=== PATIENT | female | born 1960 | race Caucasian/White ===

== ENCOUNTER 2023-05-14 11:59 | Outpatient (OUT) | payer OTHER, SELFPAY ==
[2023-05-15 06:11] LABS: Mumps Abs, IgG 57.2 AU/mL (Immune >10.9); Rubella Antibodies, IgG <0.90 index (Immune >0.99)
== END 2023-05-14 12:00 | disposition home or self-care (01) ==
LOC: LAB 12:03
DX: Z78.9 Other specified health status (principal)
CPT/HCPCS: 36415; 86735; 86762; 86765

== ENCOUNTER 2024-06-30 10:57 | Emergency (ER) | payer OTHER, SELFPAY ==
[2024-06-30] VITALS (70 sets, daily range): BP systolic 86–128; BP diastolic 56–80; PULSE 76–98; TEMP 36.9–37; O2SAT 92–100; BMI 32.3
--- OUTSIDE RECORDS SUMMARY | 2024-06-30 11:04 | XMS_ITS | CCD ---
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 Name Role Phone HUSSAIN, DR WINN Admitting Unavailable MISC, DR JAQUEZ Primary Care Unavailable HUSSAIN, DR WINN Attending Unavailable HUSSAIN, DR WINN Consulting Unavailable ALLSOP, DR NAIK Consulting Unavailable HUSSAIN, DR WINN Admitting Unavailable MISC, DR JAQUEZ Primary Care Unavailable HUSSAIN, DR WINN Attending Unavailable HUSSAIN, DR WINN Consulting Unavailable ALLSOP, DR NAIK Consulting Unavailable HUSSAIN, DR WINN Admitting Unavailable HUSSAIN, DR WINN Attending Unavailable DEPUTY, DR YOSELIN Pereira Consulting Unavailable MISC, DR JAQUEZ Primary Care Unavailable HUSSAIN, DR WINN Consulting Unavailable ALLSOP, DR NAIK Consulting Unavailable HUSSAIN, DR WINN Admitting Unavailable MISC, DR JAQUEZ Primary Care Unavailable HUSSAIN, DR WINN Attending Unavailable LORI WOOD Primary Care Physician [phone] LOIR WOOD Admitting Unavailable LORI WOOD Attending Unavailable LORI WOOD Referring Unavailable Serafin James Attending Unavailable Haider Mcgee Attending Unavaila LORI Bianchi Referring Unavailable Haider Mcgee Attending Unavaila shawnee NONE, XXXX Referring Unavailable Haider Mcgee Admitting Unavaila Haider Granger Attending Unavaila Haider Granger Referring Unavaila Haider Granger Consulting MD Haider Fierro Consulting Unava ilHaider Olivas Consulting Unavaila Lillian Chow Primary Care Physician [phone] Lori Wood NP Unavailable Farideh Shi MD Primary Care Provider LORI WOOD Admitting Unavailable Haider Mcgee Attending Ledya Haider Granger Referring Unavaila Serafin Castillo Attending Unavailable NONE, XXXX Referring Unavailable Haider Mcgee Attending Unavaila LORI Bianchi Referring Unavailable Haider Mcgee Attending Unavaila shawnee NONE, XXXX Referring Unavailable MABEL Torres Admitting Unavailable MABEL Torres Attending Unavailable Haider Mcgee Consulting UnavailHaider Robbins Attending Unavaila Haider Granger Referring Unavaila Haider Granger Admitting UnavailMD Haider Robbins Consulting Unava ilHaider Olivas Consulting Unavaila LORI Bianchi Attending Unavailable LORI WOOD Referring Unavailable LORI WOOD Admitting Unavailable LORI WOOD Attending Unavailable LORI WOOD Attending Unavailable LORI WOOD Attending Unavailable LORI WOOD Attending Unavailable LORI WOOD Attending Unavailable LORI WOOD Attending Unavailable LORI WOOD Attending Unavailable ROLY MORFIN Attending Unavailable LORI WOOD Attending Unavailable LORI WOOD Attending Unavailable LORI WOOD Attending Unavailable LORI WOOD Attending Unavailable LORI WOOD Attending Unavailable LORI WOOD Attending Unavailable Allergies Allergy Classification Reported Allergen(s) Allergy Type Date of Onset Reaction(s) Facility (2 sources) Adhesive bandage; Translations: [Adhesive Bandage] Propensity to adverse reactions (disorder) [facility] Repository Medications Current Medications Medication Drug Class(es) Dates Sig (Normalized) Sig (Original) acetaminophen 500 mg oral tablet (20 sources) Start: 03-21-2020 take 2 tablets by mouth every six hours as needed for pain Tylenol Extra Strength 500 mg oral tablet 1,000 mg = 2 tab(s), Oral, q6hr, PRN as needed for pain, Refills(s) 0 Start Date: 03/21/20 Status: Ordered Start: 05-12-2018 Tylenol 8 HR A rthritis Pain 650 mg oral tablet, extended release 1,300 mg = 2 tab(s), Oral, q8hr, PRN Pain Start Date: 05/12/18 Status: Ordered Acetaminophen (T YLENOL ARTHRITIS PAIN PO) Tylenol Arthritis Pain Active acetaminophen 325 mg / HYDROcodone bitartrate 5 mg oral tablet (1 source) Opioid Agonist Start: 06-08-2023 End: 06-11-2023 Mcclellan 325 mg-5 mg oral tablet 1 tab(s), Oral, q6hr for pain for 3 day(s), 10 tab(s), Refill(s) 0, [facility]/pharmacy #[id number], 168, cm, 06/08/23 10:10:00 EST, Height/Length Dosing, 102.3, kg, 06/08/23 10:10:00 EST, Weight Dosing Start Date: 06/08/23 Stop Date: 06/11/23 Status: Ordered amoxicillin 875 mg / clavulanate 125 mg oral tablet (5 sources) Penicillin-class Antibacterial Start: 05-01-2024 End: 05-11-2024 take 1 tablet by mouth in the morning amoxicillin-clavul anate (Augmentin) 875-125 MG tablet Indications: Leukocytes in urine , Urinary tract infection without hematuria, site unspecified , Right flank pain Take 1 tablet (875 mg) by mouth in the morning and 1 tablet (875 mg) before bedtime. Do all this for 10 days. 20 tablet 05/01/2024 05/11/2024 Active Start: 02-18-2024 End: 03-03-2024 take 1 tablet by mouth in the morning amoxicillin-clavulanate (Augmentin) 875-125 MG tablet Indications: Urinary tract infection without hematuria, site unspecified Take 1 tablet (875 mg) by mouth in the morning and 1 tablet (875 mg) before bedtime. Do all this for 10 days. 20 tablet 02/18/2024 03/03/2024 Discontinued Blood Glucose Monitoring Suppl ([employer] Autocode Blood Glucose) w/Device kit (18 sources) Start: 01-23-2023 Blood Glucose Monitoring Suppl ([employer] Autocode Blood Glucose) w/Device kit Use as directed to test blood sugar every day 01/23/2023 Active buPROPion (9 sources) Aminoketone Start: 05-09-2023 buPROPion 150 mg ER Tab Refills(s) 0 Start Date: 05/09/23 Status: Ordered Start: 06-10-2017 take 1 tablet by marito th twice daily buPROPion 150 mg ER Tab 150 mg = 1 tab(s), Oral, BID, Refills(s) 0, Depression Start Date: 06/10/17 Status: Ordered citalopram 20 mg oral tablet (9 sources) Serotonin Reuptake Inhibitor Start: 06-10-2017 citalopram 20 mg Tab Refills(s) 0 Start Date: 05/09/23 Status: Ordered CoQ10 (2 sources) Start: 03-09-2020 take 300 mg by mouth once daily CoQ10 300 mg, Oral, Daily, Refills(s) 0, Prophylaxis Start Date: 03/09/20 Status: Ordered D-MANNOSE PO (13 sources) D-MANNOSE PO Abel e by mouth Active diazePAM 5 mg oral tablet (2 sources) Benzodiazepine Start: 05-13-2018 take 1 tablet by mouth three times daily Valium 5 mg Tab 5 mg = 1 tab(s), Oral, TID, # 10 tab(s), Refills(s) 0 Start Date: 05/13/18 Status: Ordered esomeprazole 20 mg delayed release oral capsule (20 sources) Proton Pump Inhibitor Start: 05-14-2024 End: 06-10-2025 take 1 capsule by mouth before mealtime esomeprazole (NexIUM) [address] capsule Indications: Gastroesophageal reflux disease without esophagitis Take 1 capsule (20 mg) by mouth in the morning. Take before meals. Do not open capsule.. 90 capsule 3 06/10/2024 06/10/2025 Active Start: 01-08-2024 End: 03-03-2024 take 1 capsule by mouth before mealtime esomeprazole (NexIUM) [address] capsule Indications: Gastroesophageal reflux disease without esophagitis TAKE ONE CAPSULE BY MOUTH IN THE MORNING BEFORE MEALS. DO NOT OPEN CAPSULE. 90 capsule 03/03/2024 Active Start: 06-10-2017 take 1 capsule by [facility] once daily esomeprazole 40 mg Cap-EC 40 mg = 1 cap(s), Oral, Daily, Refills(s) 0, Control of stomach acid Start Date: 06/10/17 Status: Ordered Fish Oils (2 sources) Start: 03-09-2020 take 1000 mg by mouth once daily Fish Oil 1,000 mg, Oral, Daily, Refill(s) 0, Prophylaxis Start Date: 03/09/20 Status: Ordered fluconazole 150 mg oral tablet (4 sources) Azole Antifungal Start: 05-01-2024 End: 05-01-2024 take 1 tablet by mouth once fluconazole (Diflucan) 150 MG tablet Indications: Urinary tract infection without hematuria, site unspecified Take 1 tablet (150 mg) by mouth 1 (one) time for 1 dose 1 tablet 05/01/2024 05/01/2024 Active Start: 04-16-2024 End: 04-16-2024 take 1 tablet by mouth once fluconazole (Diflucan) 150 MG tablet Indications: Urinary tract infection without hematuria, site unspecified Take 1 tablet (150 mg) by mouth 1 (one) time for 1 dose 1 tablet 04/16/2024 04/16/2024 Active FLUoxetine 10 mg oral capsule (20 sources) Serotonin Reuptake Inhibitor Start: 04-23-2024 FLUoxetine 20 mg Cap 30 cap(s), 0 Refill(s), Refills(s) 0 Start Date: 04/23/24 Status: Ordered Start: 02-26-2024 End: 07-10-2024 take 1 capsule by mouth once daily FLUoxetine (PROzac) 10 MG capsule Indications: Anxiety , Recurrent major depressive disorder, in partial remission (HCC) (CMS/HCC) Take 1 capsule (10 mg) by mouth Daily 30 capsule 06/10/2024 07/10/2024 Active hydrocortisone 25 mg/ml rectal cream (3 sources) Corticosteroid Start: 02-13-2021 hydrocortisone 2.5% Rectal Crm w/Appl 1 cinda, Rectal, BID, 30 gram, Refill(s) 0, [facility]/pharmacy #[id number], 167.6, cm, 02/13/21 12:25:00 EDT, Height/Length Dosing, 104.1, kg, 02/13/21 12:25:00 EDT, Weight Dosing Start Date: 02/13/21 Status: Ordered hydrOXYzine hydrochloride 10 mg oral tablet (20 sources) Antihistamine Start: 04-23-2024 hydrOXYzine hy drochloride 10 mg Tab 180 EA, 0 Refill(s), TAKE 1 TO 2 TABLETS BY MOUTH 3 TIMES A DAY NEEDED, Refills(s) 0 Start Date: 04/23/24 Status: Ordered Start: 04-23-2024 hydrOXYzine hy drochloride 25 mg Tab 180 EA, 0 Refill(s), TAKE 1-2 TABLETS AT BEDTIME 30 DAYS, Refills(s) 0 Start Date: 04/23/24 Status: Ordered take 1 tablet by marito th every three hours hydrOXYzine HCl (Atarax) 10 MG tablet Take 10 mg by mouth every 3 (three) hours if needed for itching Active lamoTRIgine 25 mg oral tablet (17 sources) Mood Stabilizer, Anti-epileptic Agent Start: 06-10-2024 End: 07-10-2024 take 1 tablet by mouth once daily lamoTRIgine (LaMICtal) 25 MG tablet Indications: Bipolar Mood Disorder , Depressive Phase Bipolar Mood Disorder Take 1 tablet (25 mg) by mouth Daily 30 tablet 06/10/2024 07/10/2024 Active Start: 06-10-2017 Lamictal 150 m g Tab Refills(s) 0 Start Date: 05/09/23 Status: Ordered metFORMIN hydrochloride 1000 mg oral tablet (20 sources) Biguanide Start: 05-09-2023 End: 06-10-2025 take 1 tablet by mouth at mealtime metFORMIN (Glucophage) 1000 MG tablet Indications: Type 2 diabetes mellitus without complication, without long-term current use of insulin (CMS/HCC) Take 1 tablet (1,000 mg) by mouth in the morning. Take with meals. 90 tablet 02/13/2024 05/13/2024 Active Start: 03-09-2020 take 500 mg by mouth twice daily metformin 500 mg, Oral, BID, Refills(s) 0, Blood glucose Start Date: 03/09/20 Status: Ordered omeprazole 10 mg delayed release oral capsule (7 sources) Proton Pump Inhibitor Start: 05-09-2023 omeprazole 10 mg Cap-EC Refills(s) 0 Start Date: 05/09/23 Status: Ordered pravastatin sodium 40 mg oral tablet (7 sources) HMG-CoA Reductase Inhibitor Start: 05-09-2023 pravastatin 40 mg Tab Refills(s) 0 Start Date: 05/09/23 Status: Ordered predniSONE 50 mg oral tablet (1 source) Start: 06-08-2023 End: 06-13-2023 take 1 tablet by mouth once daily predniSONE 50 mg Tab 50 mg = 1 tab(s), Oral, Daily, X 5 day(s), # 5 tab(s), Refills(s) 0, Pharmacy: [facility]/pharmacy #[id number], 168, cm, 06/08/23 10:10:00 EST, Height/Length Dosing, 102.3, kg, 06/08/23 10:10:00 EST, Weight Dosing Start Date: 06/08/23 Stop Date: 06/13/23 Status: Ordered rosuvastatin calcium 20 mg oral tablet (2 sources) HMG-CoA Reductase Inhibitor Start: 06-10-2017 take 1 tablet by mouth once daily at bedtime rosuvastatin 20 mg Tab 20 mg = 1 tab(s), Oral, Once a day (at bedtime), Refills(s) 0, High cholesterol Start Date: 06/10/17 Status: Ordered sulfamethoxazole 800 mg / trimethoprim 160 mg oral tablet (2 sources) Dihydrofolate Reductase Inhibitor Antibacterial, Sulfonamide Antimicrobial Start: 04-16-2024 End: 04-19-2024 take 1 tablet by mouth once in the morning, then take 1 tablet by mouth once at bedtime sulfamethoxazole- trimethoprim (Bactrim DS) 800-160 MG per tablet Indications: Urinary tract infection without hematuria, site unspecified Take 1 tablet by mouth in the morning and 1 tablet before bedtime. Do all this for 3 days. 6 tablet 04/16/2024 04/19/2024 Active Tylenol 8 HR Arthritis Pain (7 sources) Start: 05-09-2023 Tylenol 8 HR Arthritis Pain Refills(s) 0 Start Date: 05/09/23 Status: Ordered Completed/Discontinued Medications Medication Drug Class(es) Dates Sig (Normalized) Sig (Original) cariprazine (7 sources) Atypical Antipsychotic End: 04-16-2024 Cariprazine HCl (VRAYLAR PO) Take by mouth 04/16/2024 Discontinued (Therapy completed) Cariprazine HCl (VRAYLAR PO) Take by mouth Active lurasidone hydrochloride 20 mg oral tablet (3 sources) Atypical Antipsychotic End: 03-03-2024 take 1 tablet by mouth at mealtime lurasidone (Latuda) 20 MG tablet Take 20 mg by mouth in the morning. Take with meals. 03/03/2024 Discontinued meloxicam 15 mg oral tablet (14 sources) Nonsteroidal Anti-inflammatory Drug Start: 04-14-2024 End: 07-13-2024 take 1 tablet by mouth once daily meloxicam (Mobic) 15 MG tablet Indications: Arthralgia, unspecified joint Take 1 tablet (15 mg) by mouth Daily 90 tablet 04/14/2024 04/16/2024 Discontinued (Therapy completed) Start: 02-21-2024 End: 03-03-2024 take 1 tablet by mouth once daily meloxicam (Mobic) 15 MG tablet Indications: Arthralgia, unspecified joint TAKE ONE TABLET BY MOUTH DAILY. 30 tablet 02/21/2024 03/03/2024 Discontinued Start: 05-09-2023 meloxicam 15 m g Tab Refills(s) 0 Start Date: 05/09/23 Status: Ordered OLANZapine 2.5 mg oral tablet (3 sources) Atypical Antipsychotic Start: 01-07-2024 End: 03-03-2024 take 1 tablet by mouth at bedtime OLANZapine (ZyPREXA) 2.5 MG tablet Take 2.5 mg by mouth at bedtime 01/07/2024 03/03/2024 Discontinued Vitamin D 50,000 intl units (1.25 mg) oral capsule (2 sources) Start: 05-12-2018 take 1 capsule by mouth every week Vitamin D 50,000 intl units (1.25 mg) oral capsule 50,000 International_Unit = 1 cap(s), Oral, qWeek, Mondays, Prophylaxis Start Date: 05/12/18 Status: Ordered Problems Active Problems Problem Classification Problem Date Documented Date Episodic/Chronic Abdominal pain (2 sources) Right flank pain; Translations: [Unspecified abdominal pain] 05-01-2024 Episodic Anxiety disorders (20 sources) Anxiety; Translations: [Anxiety disorder, unspecified] Onset: 01-31-2023 05-09-2023 Chronic Cardiac dysrhythmias (18 sources) Fluttering heart; Translations: [Other specified cardiac arrhythmias] Onset: 01-31-2023 01-31-2023 Chronic Diabetes mellitus without complication (20 sources) Type 2 diabetes mellitus; Translations: [Diabetes mellitus] Onset: 09-20-2015 05-09-2023 Chronic Disorders of lipid metabolism (20 sources) Hypercholesterolemia; Translations: [Hypertriglyceridemia] Onset: 01-31-2023 09-17-2019 Chronic Esophageal disorders (3 sources) Gastroesophageal reflux disease without esophagitis; Translations: [Gastro-esophageal reflux disease without esophagitis] 06-10-2024 Chronic Genitourinary symptoms and ill-defined conditions (14 sources) Dysuria; Translations: [Dysuria] 04-16-2024 Episodic Heart valve disorders (1 source) Heart murmur; Translations: [Cardiac murmur, unspecified] Onset: 04-23-2024 Episodic Menopausal disorders (20 sources) Menopausal syndrome; Translations: [Menopausal and female climacteric states] Onset: 01-31-2023 01-31-2023 Chronic Mood disorders (20 sources) Bipolar affective disorder, currently depressed, moderate; Translations: [Bipolar disorder, current episode depressed, moderate] Onset: 09-20-2015 01-31-2023 Chronic Nonspecific chest pain (2 sources) Chest pain; Translations: [Chest pain, unspecified] Onset: 06-08-2023 Episodic Nutritional deficiencies (20 sources) Vitamin D deficiency; Translations: [Vitamin D deficiency, unspecified] Onset: 01-31-2023 05-09-2023 Chronic Other connective tissue disease (18 sources) Polymyalgia; Translations: [Polymyalgia rheumatica] Onset: 01-31-2023 01-31-2023 Chronic Other connective tissue disease (1 source) Pain in upper limb; Translations: [Pain in arm, unspecified] Onset: 06-08-2023 Episodic Other female genital disorders (2 sources) Vaginal dryness; Translations: [Other specified noninflammatory disorders of vagina] 04-16-2024 Episodic Other female genital disorders (2 sources) Vaginal discharge; Translations: [Other specified noninflammatory disorders of vagina] 06-10-2024 Episodic Other inflammatory condition of skin (2 sources) Itching ; Translations: [Pruritus, unspecified] 06-10-2024 Episodic Other non-traumatic joint disorders (1 source) Joint pain; Translations: [Pain in unspecified joint] 04-14-2024 Episodic Other nutritional; endocrine; and metabolic disorders (20 sources) Morbid obesity; Translations: [Morbid (severe) obesity due to excess calories] Onset: 01-31-2023 05-09-2023 Chronic Other nutritional; endocrine; and metabolic disorders (18 sources) Obese class II; Translations: [Class 2 obesity] Onset: 01-31-2023 01-31-2023 Chronic Other screening for suspected conditions (not mental disorders or infectious disease) (14 sources) Encounter for screening mammogram for malignant neoplasm of breast; Translations: [Patient encounter status] Onset: 04-04-2022 Episodic Other skin disorders (2 sources) Night sweats; Translations: [Generalized hyperhidrosis] 05-01-2024 Episodic Residual codes; unclassified (2 sources) Statin declined; Translations: [Procedure and treatment not carried out because of patient's decision for unspecified reasons] 05-20-2024 Episodic Thyroid disorders (20 sources) Acquired hypothyroidism; Translations: [Hypothyroidism] Onset: 01-31-2023 05-09-2023 Chronic Urinary tract infections (6 sources) Urinary tract infectious disease; Translations: [Urinary tract infection, site not specified] 04-16-2024 Episodic Past or Other Problems Problem Classification Problem Date Documented Da te Episodic/Chronic Chronic obstructive pulmonary disease and bronchiectasis (20 sources) Bronchitis; Translations: [Bronchitis, not specified as acute or chronic] Onset: 09-20-2015 05-09-2023 Episodic Sprains and strains (18 sources) Strain of neck muscle; Translations: [Strain of muscle, fascia and tendon at neck level, initial encounter] Onset: 06-24-2017 04-02-2023 Episodic Unclassified (8 sources) Bipolar (qualifier value) 05-09-2023 Results Test Name Value Interpretation Reference Range Facility SURESWAB(R) ADAVANCED VAGINI TIS, TMAon 06-11-2024 C. glabrata RNA MARY+probe Ql (Vag fld) Not detected NOT DETECTED [facility] Comment on above: Zoila species C. albicans, C. tropicalis, C. parapsilosis, and/or C. dubliniensis can be detected, but not differentiated, in the Zoila spp. result. Zoila sp rRNA Probe Ql (Vag fld) Not detected NOT DETECTED [facility] Lactobacillus crispatus+gasseri+kasie enii + Gardnerella vaginalis + Atopobium vaginae rRNA MARY+probe Ql (Vag fld) Negative NEGATIVE [facility] T. vaginalis rRNA MARY+probe Ql (Unsp spec) Not detected NOT DETECTED [facility] FASTING:UNKNOWN FASTING: UNKNOWN [employer] Organization Information Site ID: QPT Name: [facility] Address: [address] [place] [address], [address] [place] [id number] Director: Guilherme Myers MD Formerly [facility], [facility] Urinalysis macro (dipstick) panel (U)on 06-10-2024 Bilirubin, UA Negative Negative - 4(70) +++ mg/dL [facility] Blood, UA Negative Negative - 50 [place]asper/mcL [facility] Clarity, UA Clear [facility] Color, UA Light Yellow [facility] Glucose, UA Negative Negative - 1999(110) ++++ mg/dL [facility] Ketones, UA Negative Negative - 160(16) ++++ mg/dL [facility] Leukocytes, UA Negative Negative - 500+++ Ashleigh/mcL [facility] Nitrite, UA Negative Negative - Positive [facility] pH, UA 6 5 - 9 [facility] Protein, UA Negative Negative - 1999(20) ++++ mg/dL [facility] Spec Grav, UA 1.015 1 - 1.03 [facility] Urobilinogen, UA 0.2 0.2 - 12 mg/dL [facility], [facility] Urinalysis macro (dipstick) panel (U)on 05-20-2024 Bilirubin, UA Negative Negative - 4(70) +++ mg/dL [facility] Blood, UA Negative Negative - 50 Jasper/mcL [facility] Glucose, UA Negative Negative - 1999(110) ++++ mg/dL [facility] Ketones, UA Negative Negative - 160(16) ++++ mg/dL [facility] Leukocytes, UA Positive Negative - 500+++ Ashleigh/mcL [facility] Nitrite, UA Negative Negative - Positive [facility] pH, UA 6 5 - 9 [facility] Protein, UA Negative Negative - 1999(20) ++++ mg/dL [facility] Spec Grav, UA 1.01 1 - 1.03 [facility] Urobilinogen, UA 1.0 0.2 - 12 mg/dL [facility] CULTURE, URINE, ROUTINEon CULTURE, URINE, ROUTINE SEE NOTE Normal [facility] Comment on above: Order Comment: SPLIT 05/01/2024 FROM [id number] Result Comment: CULTURE, URINE, ROUTINE Micro Number: [id number] Test Status: Final Specimen Source: Urine Specimen Quality: Adequate Result: No Growth Performed By: #### 3 95 #### [facility] [address], [address] [place] [address] Network Strategist: Guilherme Myers MD CBC (INCLUDES DIFF/PLT)on 10 -26-2024 Basophils (Bld) [#/Vol] 0.05 10*3/uL Normal 0-200 [facility] Comment on above: Performed By: #### 7 600, 809, 98712, 69710, 6399 #### [facility] [place] [address] Network Strategist: Guilherme Myers MD Basophils/100 WBC (Bld) 0.8 % Normal [facility] Comment on above: Performed By: #### 7 600, 809, [id number], , 6399 #### [facility] [place] [address] Network Strategist: Guilherme Myers MD Eosinophils (Bld) [#/Vol] 0.143 10*3/uL Normal 15-500 [facility] Comment on above: Performed By: #### 7 600, 809, [id number], , 6399 #### [facility] [place] [address] Network Strategist: Guilherme Myers MD Eosinophils/100 WBC (Bld) 2.3 % Normal [facility] Comment on above: Performed By: #### 7 600, 809, 08504, , 6399 #### [facility] [place] [address] Network Strategist: Guilherme Myers MD Erythrocyte distribution width (RBC) [Ratio] 13.0 % Normal 11.0-15.0 [facility] Comment on above: Performed By: #### 7 600, 809, 91448, , 6399 #### [facility] [place] [address] Network Strategist: Guilherme Myers MD Hematocrit (Bld) [Volume fraction] 38.8 % Normal 35.0-45.0 [facility] Comment on above: Performed By: #### 7 600, 809, 97625, 49965, 6399 #### [facility] [place] [address] Network Strategist: Guilherme Myers MD Hemoglobin (Bld) [Mass/Vol] 12.6 g/dL Normal 11.7-15.5 [facility] Comment on above: Performed By: #### 7 600, 809, 89727, 04068, 6399 #### [facility] [place] [address] Network Strategist: Guilherme Myers MD Lymphocytes (Bld) [#/Vol] 1.333 10*3/uL Normal 850-3900 [facility] Comment on above: Performed By: #### 7 600, 809, 04960, , 6399 #### [facility] [place] [address] Network Strategist: Guilherme Myers MD Lymphocytes/100 WBC (Bld) 21.5 % Normal [facility] Comment on above: Performed By: #### 7 600, 809, 24877, , 6399 #### [facility] [place] [address] Network Strategist: Guilherme Myers MD MCH (RBC) [Entitic mass] 27.7 pg Normal 27.0-33.0 [facility] Comment on above: Performed By: #### 7 600, 809, 09493, 03540, 6399 #### [facility] [place] [address] Network Strategist: Guilherme Myers MD MCHC (RBC) [Mass/Vol] 32.5 g/dL Normal 32.0-36.[address] [facility] [address] [facility] Comment on above: Result Comment: For adults, a slight decrease in the calculated MCHC value (in the range of 30 to 32 g/dL) is most likely not clinically significant; however, it should be interpreted with caution in correlation with other red cell parameters and the patient's clinical condition. Performed By: #### 7 600, 809, 35909, [id number], 6399 #### [facility] [place] [address] Network Strategist: Guilherme Myers MD MCV (RBC) [Entitic vol] 85.3 fL Normal 80.0-100.0 [facility] Comment on above: Performed By: #### 7 600, 809, 43497, 38142, 6399 #### [facility] [place] [address] Network Strategist: Guilherme Myers MD Monocytes (Bld) [#/Vol] 0.279 10*3/uL Normal 200-950 [facility] Comment on above: Performed By: #### 7 600, 809, 59607, 57293, 6399 #### [facility] [place] [address] Network Strategist: Guilherme Myers MD Monocytes/100 WBC (Bld) 4.5 % Normal [facility] Comment on above: Performed By: #### 7 600, 809, 78145, , 6399 #### [facility] [place] [address] Network Strategist: Guilherme Myers MD Neutrophils (Bld) [#/Vol] 4.396 10*3/uL Normal 4620-6028 [facility] Comment on above: Performed By: #### 7 600, 809, 33536, 15063, 6399 #### [facility] [place] [address] Network Strategist: Guilherme Myers MD Neutrophils/100 WBC (Bld) 70.9 % Normal [facility] Comment on above: Performed By: #### 7 600, 809, 45717, , 6399 #### [facility] [place] [address] Network Strategist: Guilherme Myers MD Platelet mean volume (Bld) [Entitic vol] 9.5 fL Normal 7.5-12.5 [facility] Comment on above: Performed By: #### 7 600, 809, 54693, 90767, 6399 #### [facility] [place] [address] Network Strategist: Guilherme Myers MD Platelets (Bld) [#/Vol] 300 10*3/uL Normal 140-400 [facility] Comment on above: Performed By: #### 7 600, 809, 18311, 39422, 6399 #### [facility] of [address], [address] [place] [address] Network Strategist: Guilherme Myers MD RBC (Bld) [#/Vol] 4.55 10*6/uL Normal 3.80-5.10 [facility] Comment on above: Performed By: #### 7 600, 809, 21297, 65951, 6399 #### [facility] of [address], [address] [place] [address] Network Strategist: Guilherme Myers MD WBC (Bld) [#/Vol] 6.2 10*3/uL Normal 3.8-10.8 [facility] Comment on above: Performed By: #### 7 600, 809, 53355, 16133, 6399 #### [facility] of [address], [address] [place] [address] Network Strategist: Guilherme Myers MD [facility] [employer] [facility] 05-02-2024 Albumin [Mass/Vol] 4.5 g/dL Normal 3.6-5.1 [facility] Comment on above: Performed By: #### 7 600, 809, 87148, 83792, 6399 #### [facility] of [address], [address] [place] [address] Network Strategist: Guilherme Myers MD Albumin/Globulin [Mass ratio] 2.0 {ratio} Normal 1.0-2.5 [facility] Comment on above: Performed By: #### 7 600, 809, 41739, 56247, 6399 #### [facility] [place] [address] Network Strategist: Guilherme Myers MD ALP [Catalytic activity/Vol] 54 U/L Normal 37-153 [facility] Comment on above: Performed By: #### 7 600, 809, 05915, 78703, 6399 #### [facility] of [address], [address] [place] [address] Network Strategist: Guilherme Myers MD ALT [Catalytic activity/Vol] 16 U/L Normal 6-29 [facility] Comment on above: Performed By: #### 7 600, 809, 01326, 30054, 6399 #### [facility] of [address], [address] [place] [address] Network Strategist: Guilherme Myers MD AST [Catalytic activity/Vol] 14 U/L Normal 10-35 [facility] Comment on above: Performed By: #### 7 600, 809, 24652, 51107, 6399 #### [facility] of [address], [address] [place] [address] Network Strategist: Guilherme Myers MD Bilirubin [Mass/Vol] 0.4 mg/dL Normal 0.2-1.2 [facility] Comment on above: Performed By: #### 7 600, 809, 32174, , 6399 #### [facility] of [address], [address] [place] [address] Network Strategist: Guilherme Myers MD BUN/CREATININE RATIO SEE NOTE: Normal 6-22 [facility] Comment on above: Result Comment: Not Reported: BUN and Creatinine are within reference range. Performed By: #### 7 600, 809, 86176, 78818, 6399 #### [facility] [address], [address] [place] [address] Network Strategist: Guilherme Myers MD Calcium [Mass/Vol] 9.5 mg/dL Normal 8.6-10.4 [facility] Comment on above: Performed By: #### 7 600, 809, 42371, 85736, 6399 #### [facility] of [address], [address] [place] [address] Network Strategist: Guilherme Myers MD Chloride [Moles/Vol] 106 mmol/L Normal 98-110 [facility] Comment on above: Performed By: #### 7 600, 809, 02898, 69566, 6399 #### [facility] of [place] [address] Network Strategist: Guilherme Myers MD CO2 [Moles/Vol] 28 mmol/L Normal 20-32 [facility] Comment on above: Performed By: #### 7 600, 809, 64669, 65991, 6399 #### [facility] [place] [address] Network Strategist: Guilherme Myers MD Creatinine [Mass/Vol] 0.95 mg/dL Normal 0.50-1.[address] [facility] [address] [facility] Comment on above: Performed By: #### 7 600, 809, 31386, 60696, 6399 #### [facility] [place] [address] Network Strategist: Guilherme Myers MD GFR/1.73 sq M.predicted among non-blacks MDRD (S/P/Bld) [Vol rate/Area] 67 mL/min/{1.73_m2} Normal > OR = 60 [facility] Comment on above: Performed By: #### 7 600, 809, 91262, 21620, 6399 #### [facility] [place] [address] Network Strategist: Guilherme Myers MD Globulin (S) [Mass/Vol] 2.2 g/dL Normal 1.9-3.7 [facility] Comment on above: Performed By: #### 7 600, 809, 46144, 34506, 6399 #### [facility] [place] [address] Network Strategist: Guilherme Myers MD Glucose [Mass/Vol] 109 mg/dL High 65-99 [facility] Comment on above: Result Comment: Fasting reference interval For someone without known diabetes, a glucose value between 100 and 125 mg/dL is consistent with prediabetes and should be confirmed with a follow-up test. Performed By: #### 7 600, 809, 80884, 77177, 6399 #### [facility] [place] [address] Network Strategist: Guilherme Myers MD Potassium [Moles/Vol] 4.5 mmol/L Normal 3.5-5.[address] [facility] Comment on above: Performed By: #### 7 600, 809, 47585, 43969, 6399 #### [facility] [place] [address] Network Strategist: Guilherme Myers MD Protein [Mass/Vol] 6.7 g/dL Normal 6.1-8.1 [facility] Comment on above: Performed By: #### 7 600, 809, 69105, 45081, 6399 #### [facility] [place] [address] Network Strategist: Guilherme Myers MD Sodium [Moles/Vol] 142 mmol/L Normal 135-146 [facility] Comment on above: Performed By: #### 7 600, 809, 76443, 02341, 6399 #### [facility] [place] [address] Network Strategist: Guilherme Myers MD Urea nitrogen [Mass/Vol] 17 mg/dL Normal 7-25 [facility] Comment on above: Performed By: #### 7 600, 809, 31330, 97391, 6399 #### [facility] [place] [address] Network Strategist: Guilherem Myers MD FSHon 05-02-2024 FSH 104.9 mIU/mL Normal [facility] Comment on above: Result Comment: Refe rence Range Follicular Phase 2.5-10.2 Mid-cycle Peak 3.1-17.7 Luteal Phase 1.5- 9.1 Postmenopausal 23.0-116.3 Performed By: #### 7 600, 809, 37471, 33835, 6399 #### [facility] [place] [address] Network Strategist: Guilherme Myers MD LIPID PANEL, STANDARDon 10-2 Cholesterol [Mass/Vol] 261 mg/dL High <200 [facility] Comment on above: Order Comment: FASTI NG:YES SPECIMEN COLLECTED AT PROVIDER OFFICE. FASTING: YES Performed By: #### 7 600, 809, 42096, 03315, 6399 #### [facility] [address], [address] [place] [address] Network Strategist: Guilherme Myers MD Cholesterol in HDL [Mass/Vol] 55 mg/dL Normal > OR = 50 [facility] Comment on above: Order Comment: FASTI NG:YES SPECIMEN COLLECTED AT PROVIDER OFFICE. FASTING: YES Performed By: #### 7 600, 809, 68292, 14172, 6399 #### [facility] [address], [address] [place] [address] Network Strategist: Guilherme Myers MD Cholesterol in LDL [Mass/Vol] 173 mg/dL High [facility] Comment on above: Order Comment: FASTI NG:YES SPECIMEN COLLECTED AT PROVIDER OFFICE. FASTING: YES Result Comment: Refe rence range: <100 Desirable range <100 mg/dL for primary prevention; <70 mg/dL for patients with CHD or diabetic patients with > or = 2 CHD risk factors. LDL-C is now calculated using the Shahida calculation, which is a validated novel method providing better accuracy than the Friedewald equation in the estimation of LDL-C. Maurice SS et al. TEDDY. 2013;310(19): 2388-3763 (http://education.[employer].Basecamp/faq/KNK836) Performed By: #### 7 600, 809, 73694, 57186, 6399 #### [facility] [address], [address] [place] [address] Network Strategist: Guilherme Myers MD Cholesterol.total/Chol esterol in HDL [Mass ratio] 4.7 {ratio} Normal <5.0 [facility] Comment on above: Order Comment: FASTI NG:YES SPECIMEN COLLECTED AT PROVIDER OFFICE. FASTING: YES Performed By: #### 7 600, 809, 14395, 27132, 6399 #### [facility] [address], [address] [place] [address] Network Strategist: Guilherme Myers MD NON HDL CHOLESTEROL 206 mg/dL (calc) High <130 [facility] Comment on above: Order Comment: FASTI NG:YES SPECIMEN COLLECTED AT PROVIDER OFFICE. FASTING: YES Result Comment: For patients with diabetes plus 1 major ASCVD risk factor, treating to a non-HDL-C goal of <100 mg/dL (LDL-C of <70 mg/dL) is considered a therapeutic option. Performed By: #### 7 600, 809, 62414, 20355, 6399 #### [facility] [place] [address] Network Strategist: Guilherme Myers MD Triglyceride [Mass/Vol] 176 mg/dL High <150 [facility] Comment on above: Order Comment: FASTI NG:YES SPECIMEN COLLECTED AT PROVIDER OFFICE. FASTING: YES Performed By: #### 7 600, 809, 40274, 86702, 6399 #### [facility] [place] [address] Network Strategist: Guilherme Myers MD SED RATE BY MODIFIED WESTERG RENon 05-02-2024 SED RATE BY MODIFIED WESTERGREN 9 mm/h Normal < OR = 30 [facility] Comment on above: Performed By: #### 7 600, 809, 61130, 61269, 6399 #### [facility] [place] [address] Network Strategist: Guilherme Myers MD TSH W/REFLEX TO FT4on 2023 TSH W/REFLEX TO FT4 1.87 mIU/L Normal 0.40-4.50 [facility] Comment on above: Performed By: #### 7 600, 809, 49454, 80432, 6399 #### [facility] [place] [address] Network Strategist: Guilherme Myers MD Urinalysis macro (dipstick) panel (U)on 05-01-2024 Bilirubin, UA 1+ Negative - 4(70) +++ mg/dL [facility] Blood, UA Negative Negative - 50 Jasper/mcL [facility] Glucose, UA Negative Negative - 2000(110) ++++ mg/dL [facility] Ketones, UA Negative Negative - 160(16) ++++ mg/dL [facility] Leukocytes, UA 1+ Negative - 500+++ Ashleigh/mcL [facility] Nitrite, UA Negative Negative - Positive [facility] pH, UA 5.5 5 - 9 [facility] Protein, UA 1+ Negative - 2000(20) ++++ mg/dL [facility] Spec Grav, UA 1.025 1 - 1.03 [facility] Urobilinogen, UA 0.2 0.2 - 12 mg/dL [facility] Heart and Vascular Office/Cl inic Noteon 04-27-2024 Heart and Vascular Office/Clinic Note Heart and Vascular Office/Clinic Note History of Present Illness Patient is a 62 female with past medical of type 2 diabetes. And recent chest discomfort with heart palpitations. Nuc med stress test from 12/2023 came back negative for ischemia or infarction and was considered a low risk study. Echo from 08/2023 showed normal EF of 60-65 with normal LV and RV and a sclerotic aortic valve. Patient comes in for 6-month follow-up today. At last visit, saw Dr. Olivas at which time she was noted at Lexiscan stress test. Results of stress test are listed above and were grossly normal. Patient reports that she has been suffering with from anxiety and has been having heart palpitations and some chest discomfort recently. Patient believes that her issues are likely due to anxiety at this time since her heart testing has come back grossly normal. Patient does report that she has a history of heart disease in her dad and her maternal grandparents both had some heart disease. Patient does feel more comfortable and better knowing that her testing has come back normal. She is currently being treated for anxiety, although struggling to find medications that are consistently working well for her. Patient denies shortness of breath, dizziness/lightheade dness, and swelling in lower legs. Review of Systems PHQ Score Initial Depression Screen Score: 0 SCORE ROS - Provider Constitutional: no fever, no chills, no sweats, no weakness Respiratory: no shortness of breath, no cough Cardiovascular: yes chest pain, positive for heart palpitations Neuro: no dizziness. no loss of consciousness Physical Exam General: alert, no acute distress Cardiovascular: regular rate and rhythm, Harsh Crescendo-decrescend o murmur heard best at the right sternal border murmur normal peripheral perfusion Respiratory: Lungs CTAB, respirations non labored Extremities: no edema left lower extremity. no edema right lower extremity Neurological: oriented x 4, LOC appropriate for age, speech normal Skin: Warm, dry, intact- no rash or concerning lesions [facility] (12/13/2023 10:48 EDT NM Myocardial Spect Rest/Stress 1 Day) Interpretation Summary Negative EKG portion of the test. Rest Dose: 10.0 mCi IV. Stress Dose: 30.6 mCi IV. EF 56% TID 1.14 EDV 82 ml Breast artifact is noted. Negative stress test for ischemia or infarction. Overall low risk stress test. [1] (08/15/2023 08:01 EST ECG Stress Exercise) CONCLUSIONS: Submaximal exercise treadmill stress test due to inability to achieve heart rate and dyspnea. Clinical correlation is suggested. Consider alternate imaging modality. [2] (08/15/2023 07:59 EST Echo Transthoracic Complete) Interpretation Summary Ejection Fraction = 60-65%. Normal LV and RV. Sclerotic aortic valve. Normal estimated PA pressure. Impaired diastolic relaxation. [3] Assessment/Plan 1. Chest pain (R07.9: Chest pain, unspecified) Patient does have history of chest pain and palpitations. Stress test and echo came back grossly normal. Patient is suffering from quite a bit of anxiety lately and thinking this is contributing to her chest pains and heart palpitations at this time. Would encourage patient to continue to pursue treatment for anxiety but not start any medications for the chest pain at this time. 2. Heart murmur (R01.1: Cardiac murmur, unspecified) Patient does have a heart murmur that can be heard on exam today. No significant stenosis or regurgitation of any of her 4 valves, but does have sclerosis of her aortic valve which is likely contributing to murmur. Suggest she continue to monitor with echoes in the future. Patient would like to follow-up as needed and I am fine with that Portions of this record may have been created with voice recognition artificial intelligence software, specifically [employer], [employer] and or [employer]. Substitutions may have occurred due to the inherent limitations of voice recognition and artificial intelligence software. Follow-up No qualifying data available Problem List/Past Medical History Ongoing Diabetes mellitus Hypercholesteremia Hypothyroidism Historical Acquired hypothyroidism Anxiety Bipolar Bronchitis Morbid obesity Type 2 diabetes mellitus Vitamin D deficiency Procedure/Surgical History Esophagogastroduoden oscopy (02/24/2021), Angioplasty, Bilateral dissection tonsillectomy, section, section, Cholecystectomy, Cholecystectomy, Colonoscopy, Colonoscopy, EGD (esophagogastroduode noscopic) electrohydraulic lithotripsy of bezoar in stomach, EGD - Esophagogastroduoden oscopy, Foot reconstruction, History of hernia repair, Tonsillectomy. Medications esomeprazole 40 mg Cap-EC, 40 mg= 1 cap(s), Oral, Daily FLUoxetine 20 mg Cap hydrocortisone 2.5% Rectal Crm w/Appl, 1 cinda, Rectal, BID hydrOXYzine hydrochloride 10 mg Tab hydrOXYzine hydrochloride 25 mg Tab metformin 1000 mg Tab Tylenol 8 HR (more content not included)... Normal [facility] Comment on above: Result Comment: Elec tronically Signed By: Melissa MONROE, Ming Jimenez\.br\Date and Time Signed: 04/27/24 11:12 EDT Laboratory - Hematology and Cell countson 04-16-2024 HbA1c (Bld) [Mass fraction] 6.1 % [facility] No Panel Informationon 04-16 [facility] Urinalysis macro (dipstick) panel (U)on 04-16-2024 Bilirubin, UA Negative Negative - 4(70) +++ mg/dL [facility] Blood, UA Negative Negative - 50 Jasper/mcL [facility] Glucose, UA Negative Negative - 1999(110) ++++ mg/dL [facility] Interpretation and review of laboratory results Abnormal [facility] Ketones, UA Negative Negative - 160(16) ++++ mg/dL [facility] Leukocytes, UA Positive Negative - 500+++ Ashleigh/mcL [facility] Nitrite, UA Negative Negative - Positive [facility] pH, UA 6.0 5 - 9 [facility] Protein, UA Negative Negative - 2000(20) ++++ mg/dL [facility] Spec Grav, UA 1.010 1 - 1.03 [facility] Urobilinogen, UA 0.2 0.2 - 12 mg/dL [facility] Urinalysis macro (dipstick) panel (U)on 03-03-2024 Bilirubin, UA Negative Negative - 4(70) +++ mg/dL [facility] Blood, UA Negative Negative - 50 Jasper/mcL [facility] Glucose, UA Negative Negative - 1999(110) ++++ mg/dL [facility] Ketones, UA Negative Negative - 160(16) ++++ mg/dL [facility] Leukocytes, UA Negative Negative - 500+++ Ashleigh/mcL [facility] Nitrite, UA Negative Negative - Positive [facility] pH, UA 6.0 5 - 9 [facility] Protein, UA Negative Negative - 1999(20) ++++ mg/dL [facility] Spec Grav, UA 1.015 1 - 1.03 [facility] Urobilinogen, UA 0.2 0.2 - 12 mg/dL [facility] Coding Summary.on 12-30-2023 Coding Summary. YJHGIfzm44TQy6oPl+PG hlYWQ+SN2JJGUtO74fiC SeeP6zP5ZIMXhCEzhzKL YSFSwQJlBgzpYgIC7yuC NjZXJu IC8+WJ5tEUNmMaqjbYIv m1I9wYJ3K61eia1fWYud qOR3GIZjIcCkomksy3lc pAq7NHxyYlpqQrUn AEXcgM63UDW8cF63Ef66 oKWmnQGms9fheNd4IoTt SNCnDOK7qHqhGBqrp3Xc ADOmI23kjOWlk2J5 IGNvbGxhcHNlOyBlbXB0 iA2mOLmmzlynw9rcxzsb Xtp0px61wJAdq7R0mLR5 I3ItdsY1EAZrtLOp BkoqfABIqG6wzxwvb7kz lhtxJyOfONApWOv0JLp6 OMGdcTghZsFyBT00BAS1 ILKlwcWpJ8OiMBLo sGvxVvS3n3I3Mq0NI2FA NnaoP1OYFADDYTnsvCZ+ CF11oy66J4LwGhciPan7 ZMCgDHR6eTN5yB1z HYJbUGpue3B2dXU0K8Mr cgGshr1qf2suZAJnUGrf A41abMRxf1S1CCAksXP5 OMDptLrzNbVmyK15 Oyc+IKZxaUcjn8DrWfkv l4tnu4hfsFs6DawfRZDr hzQwwLutDVH4m0BrHi7n QELomRD3gZS6wU6n QgReHkQ9PTmdA962LtDx lJGrYnlhU74nV8EocWF+ IMHfXdj2RXWjmWuaAJ1t B0ZdIXRqtqfexEAc vWunUJ4zEOXglljdWVLs sL7sDNHoP1n7VxWkNlU7 RWnrV1QgZPDbbhtdXn55 lV8gKeKxAkF6JQgq H3ExdaY6ZQHtsTWcXWxz KOC8U49ot8T2PIIjSTBc FQM2gHQ4mD1ktAvincob bGVmdDsgdmVydGlj JGxxSGceN338ULLekBfq PkNvZGluZyBEYXRlOiAg MDYvMjQvMjAyNDwvdGQ+ OYUePGL2nHhoCEGt dCUbINrxYh2fjVkcsJau HR4uCEDwooynDNDwhB6c KEHenFSpxSguHV9uHAXd jjvic236HtRfZNQ1 HRYetNHbM9WkfO1sKlNh UXHfLEJsT0VdaRVgXNyf X933BNtlFsF8BQZfvfGj C2FkKGSpvVxsQqA9 t6A5Kh1Wk8VyslujB3Vj vBPnYxXxNojkLWi3X2Pw PjwvdHI+DM43VJRnAJ31 HSf9WHU7oNmwMLfa OCHfX7XdkS2kXePtQRPy ZGRkOyc+PHRhYmxlIHdp ZHRoPScxMDAlJyBzdHls AV1zIo5pLKAxNGUr iJbipJNoTiOpv8rbWMMp SQlvAM7glDxmS8OrrKI4 ROBov7q4Wg86L42mE1Lk dXA+BGQqlJW4fQB9 uP6cMaUqNjR5VTjsI788 KlHtoMZwKucgf3uxa1tw zGl1DlQ1UOCtttVcdPja YKA2q7YsPr49B06d IHdpZHRoPSIxNSUiIHZh nXnswl2lyE7uOx4+PGNv zYE4hNC3fJ1mTnOoCpK7 XQqxH071JdGcfUWu Tgvgs5cux9ssrXp5XjUa YHWgxwBizNvqAQL8j6Ib Fc54W1XxnYtsp1InOku8 vj99fCMvo2M7gDX5 H7RjMFTlgkaesOUfmJdt AE0oCXQkxewdQHZckJ2m OXXgG2z9SzZpPqZ1FDrv U1LaqiA0XMAdkNFu GWSwnXOCrJ7azdfle9wo wwthFsIrMUFrVUv7QNq5 UIHtfOzkGiNeKZS0XqF8 FJA0wAVxvZ6ifDfw mkleaX4nNfr+DLF3bLIn oZWNRF8xXnbvbOX+PHRk YZB4hOckOTupQMRbeY7z YBTqC7o7XgNzHuB1 GNfoG0MiypW5RSKswCGf PWIdcMLJaQ5nlagfu8vh feudKdJvGNPgHXb0SMz8 LWFsaWduOiBsZWZ0 WkC9XNC8vOPkqG6ktNoh dhtpgA0cWmr+QmlydGgg PQP6CTm7Q8BkEmz5EOXx rWcjJE8igZPiGWor Ir2ecFmmvYykNG9eFMIi vbxup868UwQug9joGUCl yEDxFYeuNWK7Z56cm7Z4 CIUpFWNwOTD0oHA5 aR5ptKszslauuJZupNeh irKcrLquPJiiCQkdY817 CXDtiAnwFyHiLZq1O3Ag Sqe8OWBkeCroMX1q eBKaSSlbTa0zpZjhwEmj WF4xSNMaavxwy185ZaNr r1yrZDYxvPRqZEcyEJF7 X86pf7K2SSYlIMBi IJF3nRQ4aU5wjOaehoig bGVmdDsgdmVydGljYWwt KYiyI608YAWuoEtiKeQr gMh2T3WwTxx5BNOc sRxjXV8svSOaTBrlEv3k nRvnnPxyLS4jHHVoflwc e506SpFxt6mmGBJleSOa EUfyWDO5A43oh4L7 NZUyTEIuBYE0qJD8nF2e bGlnbjogbGVmdDsgdmVy gZqfHAboEXlmY786GMMv cDsnPlBhdGllbnQg FLyiOTx4J6JyUlyyoER+ ZH96XNWqUM18vWPwoKVl l3xuhRr5LfTxOBFsTJK5 bRbqXIwwc9AnZWDh W83piRCzk0Y1NXBfyKee rJWnIkVwyUH5bJ2lIOnm cuhkx1eykvtdGmniy6ay kk94lQ22K72kJYow ZHRoPSIzMCUiIHZhbGln oh3cmW8eKn4+PGNvbCB3 iCO9rN0zXARgNmZ2ZAoo W159IlDwqAAvUcvy h6mat4dzzFh9QnQ3UYVz jjBqxAbbEFU6n7LcRv51 L06aQHpcRXZbOWNfHONx MKVodKnzir0tuE2i Ii8+XSJsiAD9aKD5hP6l ZiLjJaB9UUvlM376HhRt eXJzHzaiI40gW4YgcJI+ ELRcYsq4LKFetHtl RA0hrEHlVCxjSl0jFYG0 NbEuAgLhXMqfV6WtJNWc rnswxqbngPS2UJVsDSLj yT21My0sjRclCCWf aNJYdQ2rqfryz5xkgudl NkTsJFSwUCz8XDx4LJEs qMgoFoRfRGO8EcA1IQA2 hYSpcV3lnNyslrhy aM8vR7GqDRZpmvfeLq22 qB8aXtVfTaB6FGtnUhk+ R0xRKNSQSNLPTvOLOABD RAEpQE1HIB03LY23 eIDox3J9yEM9H8HvRZFj qcarlrovrRN8NJRpMKIx fO18qUCrOOowYv0kr2M5 v801CYXwXTIzaX95 Pf1liZhnBWHdlQZMsY4o wsrpm2jffyyaHwZfCZLr CPs1ULc5MHPmeVtxKhRp OBJ9FfJ8JRD6iJDq wS9mqDzmnhdzcW6cKlq+ LRFvOuKuYRt0BYzpwJN+ WQInWOY8tXjoLFokTOHq uS8aJRZaM0d5EmXk EpM7MPfvH0BfIUIsbity Kp24gR8eDvFrAgG1VFey U6KhjlB1IKKvwBFbUEtl CUR6D54as1N5GNRz WAAwKWO6pAL5hZ1igXgh bjogbGVmdDsgdmVydGlj GIxnBQywU517QLRyiHhe MoLhDIriABSgOS48 XT63fAFkf4N9bYG3Z6Ge DGIutxeszwovmIX3ZCJf QDSuiG51zQCpHVboZj3e f3C2h082YVPeJWNe mA64Lf9lkTtqTDSliSNM dE3usnpxw6qfeptdMrHb VIShNKw3TZn7YKLcnTwe DhXzYMJ9NpS0ICL9 gMCkpV6obQjiymirfB5x Oyc+GeMnISpwHI57JK27 hENgn3M1qHL8G5LfKBJj adumjsaiaJR4RXJv XOWojY73yRImPUgxUk0j l4O1k299XZWjLQNarY40 Fo8utPvzXPPieGWMrA0u ngabd3ohbthhToYh WTIeVJw3QQq1KAJgrLvl PrRgJGQ9SyB2QFC8xBDg tZ1ocBxnshlflL0yKpl+ F0L3nVH8hANvsIwu dGQ+BM46os32A0TrTqcx Ubw4ODPwOTG3gCW3pP8k GFWgJAvqs4P9zWP4J1Sf deRjyc0wl2jgHIIy DVsmO57ogWOzn3O0JGRb nGD1ZIVclDdfEaFerO75 Oyc+TMIthKwyn6JrHwur w4xeu1tyvNq4ByHk ATXdgiYuoDgkYPU0q0Yc Hh83H12jENpeLBWdDIGv FEFqBOCfzVmesx3suY9q Ii8+CMVxrPJ3cOJ1 wM6bEwDqRiH2GWpfC423 MnXlnLNrOlyby9dxi9sd pZu4ZxOvBJXpzrOdjDfh HDF4r2JoVw50F9Ry vJlhw7WfEyb6po27fJEm g5S5pFF7H7PnNFThqdbj gIEggCgcOK7qJWSwxicj SPDnwP7sUZChL4k5 XgZrQrR1NInpD7QvgsX2 HVRweQWqBOGeaBRAlS8l epccp7biaujxCxHwSHRs MNh2HIv0YGEbvAow PsMvYZC1CeT6CMG0jHRl oF0dfLrzdvlpgW7rOam+ FQk7a2ijaBDlYL8ewOQ6 QY57PL65wXTmi4S6 jGA7W3VdEGJsbkwvhrwy zVS8FCQyBQKayZ33Ol5o tZncOc6hIQAyHNF8CTZi uLUjM5EjsG6rIqDh BHVnYVVbE7ToeLMwOVsx G424ZQqoJqX7OZHmknXj T3ZfDVSmcIacWuJ4j8X4 Ie0DEI96ZJ38FD83 yPDpt9O2pYZ7T6RaTWFa epmschntzAA2FJIqTSPb uF55Cs5zxWpdKf6xZUNq HDN0TGYbaSPpK6Tt uT7rQcUqJNRaSCUzD6Im gGIpWQigO644DTwuQoU9 XXVsfaTmQ9IhTJVorBsy OsP8q5X9Zl3CVh44 SW91YQ35oWCdh1H6nEX9 T9ZlECWsderwhclsoAE1 DDLaHFYniO56Fh1oxDxu Tf2xMMXgNII4XEAx fNYeL8ZlyF5aJlXeVRJc VVSgL9YznESnIIaoN707 LAmlXlQ9TMGmfqPyH8Eq DCDmuOixEsJ2r1F6 Bh6YIGnnkcl8P5YzLonk dHI+ZI80LROpUA11pACw qEVih7wqiOz4KnZcWEIc XNQ1yCiaUOyiv1Dp YVWgK16wbSTkt (more content not included)... Normal [facility] Stress EKG Tracingson 2023 Stress EKG Tracings [id number] 2#1.00TIFF Normal [facility] MA Mamm Screen w/CAD if perf and 3D Bilon 12-24-2023 MA Mamm Screen w/CAD if perf and 3D Sabino Exam Date/Time: 12/20/2023 09:02 EDT Reason for Exam: Z12.31 Report IMPRESSION: BIRADS 2 BENIGN FINDINGS, NORMAL INTERVAL FOLLOW-UP Follow-up: 12 MONTH RECALL Density: Scattered tissue. Vascular calcifications: Present. EXAM: MA Mamm Screen w/CAD if perf and 3D [place] DATE: 12/20/2023 7:26 AM CLINICAL HISTORY: Z12.31. COMPARISONS: 10/24/2020, 03/21/2018, and 08/02/2016. TECHNIQUE: Routine full-field digital mammograms and 3D breast tomosynthesis were obtained of both breasts. FINDINGS: There are no developing densities, suspicious microcalcifications, or areas of architectural distortion identified on the current study. No significant changes are identified from the prior studies, given differences in technique and positioning. Stable asymmetric densities Dense Breast: No. CAD analysis was performed and used in the interpretation. Board Certified Radiologists. Accredited by the ACR and FDA. MAMMOGRAPHY IS VERY IMPORTANT TO YOUR HEALTH. THE CURRENT [employer] [facility] N[employer] GUIDELIN[employer] RECOMMENDS ANNUAL MAMMOGRAPHY BEGINNING AT AGE 40. THIS FACILITY UTILIZES A REMINDER SYSTEM TO ENSURE ALL PATIENTS RECEIVE REMINDER NOTIFICATIONS AT THE APPROPRIATE TIME BASED ON THE RECOMMENDATIONS OF THIS EXAM. Report Ordering Provider: , FINAL REPORT Dictated: 12/24/2023 4:34 pm Jayden Gill MD Signed (Electronic Signature): 12/24/2023 4:34 pm Signed by: Jayden Gill MD Transcribed by: NAINA Technologist: [facility] Assessment: BI-RADS Category 2-Benign finding Recommendation: Normal interval follow-up Normal [facility] Consent for Treatmenton 12-06 Consent for Treatment [id number] #1.00TIFF Normal [facility] NM Myocardial Spect Rest/Str ess 1 Dayon 12-18-2023 NM Myocardial Spect Rest/Stress 1 Day Exam Date/Time: 12/13/2023 10:48 EDT Reason for Exam: R07.9;Chest pain Report [facility] [address] [place] [address] Nuclear Stress Report Name: JANE CHIRINOS Study Date: 12/13/2023 08:57 AM Patient Location: [facility] : 1960 (M/d/yyyy) Gender: Female Age: 63 yrs Ethnicity: [facility] Reason For Study: Chest pain Ordering Physician: Haider Mcgee Referring Physician: Haider Mcgee Protocol 75171 Pharmacologic Lexiscan stress with Isotope. Study Protocol: One day rest/stress acquisition. Rest Dose Tc99m Cardiolite was administered. Rest Dose: 10.0 mCi IV. Stress Dose Stress Protocol: Lexiscan. Stress Dose: 30.6 mCi IV. Stress Parameters Normal blood pressure response. Stress Symptoms: None. ECG Rest Normal ECG. ECG Peak No significant changes from baseline. No ST-T wave changes from baseline. Arrhythmia No arrhythmias. Image Quality Rest Images: Diagnostic in quality. Stress Images: Diagnostic in quality. SPECT Perfusion Normal rest and stress perfusion. Left Ventricle Normal global and regional wall motion in all territories. Report Interpretation Summary Negative EKG portion of the test. Rest Dose: 10.0 mCi IV. Stress Dose: 30.6 mCi IV. EF 56% TID 1.14 EDV 82 ml Breast artifact is noted. Negative stress test for ischemia or infarction. Overall low risk stress test. FINAL REPORT Dictated: 12/13/2023 8:57 am Haider Mcgee MD Signed (Electronic Signature): 12/18/2023 8:51 am Signed by: Haider Mcgee MD Transcribed by: [facility] Technologist: ANGI Normal [facility] Consent for Treatmenton Consent for Treatment [id number] #1.00TIFF Normal [facility] Stress EKG Tracingson 2023 Stress EKG Tracings [id number] #1.00TIFF Normal [facility] Physician Orderon 12-10-2023 Physician Order [id number] #1.00TIFF Normal [facility] Heart and Vascular Office/Cl inic Noteon 09-21-2023 Heart and Vascular Office/Clinic Note Chief Complaint here for test results History of Present Illness Jane Chirinos is a 62-year-old female who presents today for a follow-up evaluation of cardiovascular risk factors. She has been doing well. She has not had many episodes of flutter. On 06/07/2023, she was admitted to the emergency room due to numbness and pain radiating to her upper extremities. Tests were conducted and all results returned within normal parameters. Throughout 06/2023, she was sick, and was not able to walk her dog as much as she had been. She wishes to proceed with the stress test. Review of Systems Constitutional: no fever, no sweats, no weakness Skin: no rash, no lesions, no bruising/petechiae ENMT: no sore throat, no congestion, no hoarseness Respiratory: no shortness of breath, no cough, no orthopnea, no wheezing Cardiovascular: no chest pain, no palpitations, no edema Gastrointestinal: no nausea, no vomiting, no diarrhea, no GI bleeding Genitourinary: no anuria/oliguria no hematuria Musculoskeletal: no back pain, no trauma Neurologic: no headache, no dizziness, no numbness, no weakness Psychiatric: no sleeping problems, no irritability, no anxiety/depression. Heme/Lymph: no bleeding tendency, no bruising tendency Allergy/Immunologic: no recurrent infections, no impaired immunity Additional ROS info: Except as noted in the above Review of Systems and in the History of Present Illness all other systems have been reviewed and are negative or noncontributory Physical Exam Vitals & Measurements HR: 74(Peripheral) BP: 132/84 SpO2: 96% HT: 66 in HT: 168 cm WT: 99.8 kg WT: 219.56 lb BMI: 35.36 General: alert, no acute distress Skin: warm, dry intact Head: atraumatic, normocephalic Neck: trachea midline, no JVD, no bruit Eye: normal conjunctiva, sclera clear ENMT: oral mucosa moist Cardiovascular: regular rate and rhythm, no murmur, normal peripheral perfusion Respiratory: lungs CTA, respirations non labored Chest wall: no deformity. Gastrointestinal: soft, non-distended, no tenderness, no guarding. Back: no tenderness, normal ROM, normal alignment. Extremities: no edema, no deformity, no trauma Neurological: oriented x 4, LOC appropriate for age, sensation equal & normal bilaterally, speech normal Psychiatric: cooperative, affect appropriate for age, normal judgement, normal psychiatric thoughts. Assessment/Plan Jane Chirinos is a 62-year-old female with cardiovascular risk factors. 1. Chest Pain She had an episode of discomfort in the chest and arms. We tried to assess with an exercise stress, but we did not achieve heart rate, so I will get a Lexiscan and her echocardiogram looked good. 2. Obesity Diet and exercise as tolerated is recommended to promote weight loss and improve cardiovascular wellness. The patient will follow up in 6 months. ATTESTATION: Portions of this record may have been created with voice recognition artificial intelligence software, specifically [employer], [employer] and or [employer]. Substitutions may have occurred due to the inherent limitations of voice recognition and artificial intelligence software. Documentation services were performed after the patient or guardian consented to allow [employer] to record this visit. CINTHYA oracle specialist and provider reviewed before signing. CINTHYA: Sasha Woody Ano-os/Pasted by: John Hernandez. Follow-up No qualifying data available Problem List/Past Medical History Ongoing No qualifying data Historical Acquired hypothyroidism Anxiety Bipolar Bronchitis Morbid obesity Type 2 diabetes mellitus Vitamin D deficiency Procedure/Surgical History Angioplasty, Bilateral dissection tonsillectomy, section, Cholecystectomy, Colonoscopy, EGD (esophagogastroduode noscopic) electrohydraulic lithotripsy of bezoar in stomach, History of hernia repair. Medications buPROPion 150 mg ER Tab citalopram 20 mg Tab Lamictal 150 mg Tab meloxicam 15 mg Tab metformin 1000 mg Tab omeprazole 10 mg Cap-EC pravastatin 40 mg Tab Tylenol 8 HR Arthritis Pain Allergies Adhesive Bandage (Unknown) Social History Alcohol - Denies Alcohol Use, 06/08/2023 Substance Abuse - Denies Substance Abuse, 06/08/2023 Tobacco - Denies Tobacco Use, 06/08/2023 Never (less than 100 in lifetime) Tobacco Use:., 08/23/2023 Family History Depression: Mother. Heart disease: Father. Normal [facility] Comment on above: Result Comment: Elec tronically Signed By: Haider Mcgee MD\.br\Date and Time Signed: 09/20/23 22:06 EDT\.br\Electronically Co-Signed By: John Hernandez.br\Date and Time Co-Signed: 08/23/23 12:03 EST Heart and Vascular Office/Cl inic Noteon 09-20-2023 Heart and Vascular Office/Clinic Note Chief Complaint here for test results History of Present Illness Jane Chirinos is a 62-year-old female who presents today for a follow-up evaluation of cardiovascular risk factors. She has been doing well. She has not had many episodes of flutter. On 06/07/2023, she was admitted to the emergency room due to numbness and pain radiating to her upper extremities. Tests were conducted and all results returned within normal parameters. Throughout 06/2023, she was sick, and was not able to walk her dog as much as she had been. She wishes to proceed with the stress test. Review of Systems Constitutional: no fever, no sweats, no weakness Skin: no rash, no lesions, no bruising/petechiae ENMT: no sore throat, no congestion, no hoarseness Respiratory: no shortness of breath, no cough, no orthopnea, no wheezing Cardiovascular: no chest pain, no palpitations, no edema Gastrointestinal: no nausea, no vomiting, no diarrhea, no GI bleeding Genitourinary: no anuria/oliguria no hematuria Musculoskeletal: no back pain, no trauma Neurologic: no headache, no dizziness, no numbness, no weakness Psychiatric: no sleeping problems, no irritability, no anxiety/depression. Heme/Lymph: no bleeding tendency, no bruising tendency Allergy/Immunologic: no recurrent infections, no impaired immunity Additional ROS info: Except as noted in the above Review of Systems and in the History of Present Illness all other systems have been reviewed and are negative or noncontributory Physical Exam Vitals & Measurements HR: 74(Peripheral) BP: 132/84 SpO2: 96% HT: 66 in HT: 168 cm WT: 99.8 kg WT: 219.56 lb BMI: 35.36 General: alert, no acute distress Skin: warm, dry intact Head: atraumatic, normocephalic Neck: trachea midline, no JVD, no bruit Eye: normal conjunctiva, sclera clear ENMT: oral mucosa moist Cardiovascular: regular rate and rhythm, no murmur, normal peripheral perfusion Respiratory: lungs CTA, respirations non labored Chest wall: no deformity. Gastrointestinal: soft, non-distended, no tenderness, no guarding. Back: no tenderness, normal ROM, normal alignment. Extremities: no edema, no deformity, no trauma Neurological: oriented x 4, LOC appropriate for age, sensation equal & normal bilaterally, speech normal Psychiatric: cooperative, affect appropriate for age, normal judgement, normal psychiatric thoughts. Assessment/Plan Jane Chirinos is a 62-year-old female with cardiovascular risk factors. 1. Chest Pain She had an episode of discomfort in the chest and arms. We tried to assess with an exercise stress, but we did not achieve heart rate, so I will get a Lexiscan and her echocardiogram looked good. 2. Obesity Diet and exercise as tolerated is recommended to promote weight loss and improve cardiovascular wellness. The patient will follow up in 6 months. ATTESTATION: Portions of this record may have been created with voice recognition artificial intelligence software, specifically [employer], [employer] and or [employer]. Substitutions may have occurred due to the inherent limitations of voice recognition and artificial intelligence software. Documentation services were performed after the patient or guardian consented to allow [employer] to record this visit. CINTHYA oracle specialist and provider reviewed before signing. CINTHYA: Sasha Woody Ano-os/Pasted by: John Hernandez. Follow-up No qualifying data available Problem List/Past Medical History Ongoing No qualifying data Historical Acquired hypothyroidism Anxiety Bipolar Bronchitis Morbid obesity Type 2 diabetes mellitus Vitamin D deficiency Procedure/Surgical History Angioplasty, Bilateral dissection tonsillectomy, section, Cholecystectomy, Colonoscopy, EGD (esophagogastroduode noscopic) electrohydraulic lithotripsy of bezoar in stomach, History of hernia repair. Medications buPROPion 150 mg ER Tab citalopram 20 mg Tab Lamictal 150 mg Tab meloxicam 15 mg Tab metformin 1000 mg Tab omeprazole 10 mg Cap-EC pravastatin 40 mg Tab Tylenol 8 HR Arthritis Pain Allergies Adhesive Bandage (Unknown) Social History Alcohol - Denies Alcohol Use, 06/08/2023 Substance Abuse - Denies Substance Abuse, 06/08/2023 Tobacco - Denies Tobacco Use, 06/08/2023 Never (less than 100 in lifetime) Tobacco Use:., 08/23/2023 Family History Depression: Mother. Heart disease: Father. Normal [facility] Comment on above: Result Comment: Elec tronically Signed By: Haider Mcgee MD\.br\Date and Time Signed: 09/20/23 22:06 EDT\.br\Electronically Co-Signed By: John Hernandez.br\Date and Time Co-Signed: 08/23/23 12:03 EST Physician Orderon 08-26-2023 Physician Order [id number] 8#1.00TIFF Normal [facility] Physician Order [id number] 8#1.00TIFF Normal [facility] Insurance Correspondenceon 0 08-23-2023 Insurance Correspondence [id number] #1.00TIFF Normal [facility] Insurance Correspondence [id number] #1.00TIFF Normal [facility] Consent for Treatmenton Consent for Treatment [id number] #1.00TIFF Normal [facility] Consent for Treatment [id number] #1.00TIFF Normal [facility] Auto Diffon 06-08-2023 Basophils/100 WBC (Bld) 0.9 % Normal 0.0-2.0 [facility] Comment on above: Order Comment: Order Added by Discern Expert. Performed By: #### 1 [id number], 6229110, 7002907, 5961911, 05361025, 6803318, 86094925, 4458294 ####[facility] [address] [place] [address] Basophils/Leukocytes Auto (Bld) [Pure # fraction] 0.1 E9/L Normal 0.0-0.2 [facility] Comment on above: Order Comment: Order Added by Discern Expert. Performed By: #### 1 [id number], 0464233, 4422591, 0293723, 99472995, 1606322, 26401310, 5675385 ####[facility] [address] [place] [address] Eosinophils/100 WBC (Bld) 3.1 % Normal 0.0-8.0 [facility] Comment on above: Order Comment: Order Added by Discern Expert. Performed By: #### 1 5060446, 3804988, 2890267, 5462476, 21207136, 3067629, 29403450, 8729032 ####[facility] [address] [place] [address] Eosinophils/Leukocytes Auto (Bld) [Pure # fraction] 0.2 E9/L Normal 0.0-0.5 [facility] Comment on above: Order Comment: Order Added by Discern Expert. Performed By: #### 1 2697979, 6136611, 6184766, 2722133, 03949307, 3181890, 05843642, 8461868 ####[address] [place] [address] Lymphocytes/100 WBC (Bld) 30.9 % Normal 14.0-50.0 [facility] Comment on above: Order Comment: Order Added by Discern Expert. Performed By: #### 1 8424882, 1531960, 5165551, 9763505, 93498611, 9415670, 70417739, 8831909 ####[address] [address] Lymphocytes/Leukocytes Auto (Bld) [Pure # fraction] 2.0 E9/L Normal 1.0-4.0 [facility] Comment on above: Order Comment: Order Added by Discern Expert. Performed By: #### 1 2773490, 1239448, 1782920, 2829158, 61837859, 2690102, 36446795, 4310554 ####[address] [address] Monocytes/100 WBC (Bld) 4.8 % Normal 4.0-14.0 [facility] Comment on above: Order Comment: Order Added by Discern Expert. Performed By: #### 1 5379152, 2017356, 5325226, 0895597, 42500024, 6172045, 12183238, 5018400 ####[address] [place] [address] Monocytes/Leukocytes Auto (Bld) [Pure # fraction] 0.3 E9/L Normal 0.2-1.0 [facility] Comment on above: Order Comment: Order Added by Nadir Expert. Performed By: #### 1 3858410, 4279538, 7696024, 5627084, 48356804, 1910921, 84993348, 3743684 ####[facility] [address] [place] [address] Neutrophils/100 WBC (Bld) 60.3 % Normal 36.0-75.0 [facility] Comment on above: Order Comment: Order Added by Discern Expert. Performed By: #### 1 1733865, 1674386, 1480972, 0665601, 16532379, 3121618, 98310884, 9904451 ####[facility] [address] [place] [address] Neutrophils/Leukocytes Auto (Bld) [Pure # fraction] 3.8 E9/L Normal 2.0-7.5 [facility] Comment on above: Order Comment: Order Added by Nadir Expert. Performed By: #### 1 6375882, 0352455, 9223867, 0250928, 52285293, 9722561, 25052124, 5340242 ####[address] [place] [address] Basophils/100 WBC (Bld) 0.9 % Normal 0.0-2.0 [facility] Comment on above: Order Comment: Order Added by Nadir Expert. Performed By: #### 1 6947102, 1697414, 8161139, 5656087, 22127728, 0737203, 94767244, 8076130 ####[facility] [address] [place] [address] Basophils/Leukocytes Auto (Bld) [Pure # fraction] 0.1 E9/L Normal 0.0-0.2 [facility] Comment on above: Order Comment: Order Added by Nadir Expert. Performed By: #### 1 1480158, 2188796, 0180769, 6010379, 07140476, 5346136, 16347900, 5084388 ####[facility] [address] [place] [address] Eosinophils/100 WBC (Bld) 3.1 % Normal 0.0-8.0 [facility] Comment on above: Order Comment: Order Added by Discern Expert. Performed By: #### 1 7596084, 0470247, 5443995, 7138613, 49982098, 4581986, 50831006, 7588190 ####[facility] [address] [place] [address] Eosinophils/Leukocytes Auto (Bld) [Pure # fraction] 0.2 E9/L Normal 0.0-0.5 [facility] Comment on above: Order Comment: Order Added by Discern Expert. Performed By: #### 1 4603391, 8375073, 1374244, 0107236, 61216785, 9664247, 37341645, 1639671 ####[address] [place] [address] Lymphocytes/100 WBC (Bld) 30.9 % Normal 14.0-50.0 [facility] Comment on above: Order Comment: Order Added by Discern Expert. Performed By: #### 1 4794491, 3887240, 2897194, 5074638, 77072680, 9359763, 01732889, 4394751 ####[address] [place] [address] Lymphocytes/Leukocytes Auto (Bld) [Pure # fraction] 2.0 E9/L Normal 1.0-4.0 [facility] Comment on above: Order Comment: Order Added by Discern Expert. Performed By: #### 1 9879208, 3610086, 3079294, 7715051, 75318561, 0485213, 46211295, 1937586 ####[address] [place] [address] Monocytes/100 WBC (Bld) 4.8 % Normal 4.0-14.0 [facility] Comment on above: Order Comment: Order Added by Nadir Expert. Performed By: #### 1 2711689, 8636093, 7891529, 2445434, 08000832, 1336988, 30390589, 3823988 ####[address] [place] [address] Monocytes/Leukocytes Auto (Bld) [Pure # fraction] 0.3 E9/L Normal 0.2-1.0 [facility] Comment on above: Order Comment: Order Added by Discern Expert. Performed By: #### 1 7590978, 4846732, 9897901, 6023072, 34746707, 3669683, 00370182, 4963035 ####[address] [place] [address] Neutrophils/100 WBC (Bld) 60.3 % Normal 36.0-75.0 [facility] Comment on above: Order Comment: Order Added by Discern Expert. Performed By: #### 1 3140239, 8569008, 4107605, 5859834, 45631165, 0347449, 39680471, 3494667 ####[address] [address] Neutrophils/Leukocytes Auto (Bld) [Pure # fraction] 3.8 E9/L Normal 2.0-7.5 [facility] Comment on above: Order Comment: Order Added by Discern Expert. Performed By: #### 1 7532359, 9577675, 1196948, 8044938, 94835777, 8022263, 52812917, 1405398 ####[address] [place] [address] BMPon 06-08-2023 Creatinine [Mass/Vol] 0.9 mg/dL Normal 0.5-1.3 [facility] Comment on above: Performed By: #### 1 2502256, 0746402, 8254862, 8119037, 29200800, 4484750, 20696663, 0849328 ####[address] [place] [address] Urea nitrogen [Mass/Vol] 20 mg/dL Normal 5-21 [facility] Comment on above: Performed By: #### 1 0941766, 0030663, 8617372, 9756675, 56755351, 2729189, 07600216, 0779450 ####[facility] [address] [place] [address] Urea nitrogen/Creatinine [Mass ratio] 22 No Units High 10-20 [facility] Comment on above: Performed By: #### 1 1240494, 0319852, 8036099, 7749185, 86387412, 6528892, 93723428, 3961574 ####[facility] [address] [place] [address] Anion gap [Moles/Vol] 15 mmol/L Normal 6-16 [facility] Comment on above: Performed By: #### 1 2016078, 2245394, 2502177, 9843099, 82673575, 9217111, 94203229, 2480933 ####[facility] [address] [place] [address] Calcium [Mass/Vol] 8.9 mg/dL Normal 8.9-11.1 [facility] Comment on above: Performed By: #### 1 4317748, 8166086, 6894026, 3841468, 55576651, 6274089, 56149767, 8633246 ####[facility] [address] [place] [address] Chloride [Moles/Vol] 103 mmol/L Normal 101-111 [facility] Comment on above: Performed By: #### 1 1825590, 3080070, 3979747, 9186375, 45749709, 6575288, 42986539, 2325072 ####[facility] [address] [place] [address] CO2 [Moles/Vol] 25 mmol/L Normal 21-31 [facility] Comment on above: Performed By: #### 1 6363208, 3830089, 7836984, 7877406, 64402052, 7691438, 66775856, 3258422 ####[facility] [address] [place] [address] Glucose [Mass/Vol] 117 mg/dL Normal 55-199 [facility] Comment on above: Result Comment: If t his glucose result represents a fasting glucose, interpretation should refer to the following reference range: 55-99 mg/dL Performed By: #### 1 3657212, 3403786, 2043234, 2212119, 78522085, 5937355, 63762234, 9446068 ####[facility] [address] [place] [address] Potassium [Moles/Vol] 4.0 mmol/L Normal 3.5-5.3 [facility] Comment on above: Performed By: #### 1 3315180, 4390820, 9402445, 6604564, 24726449, 1335327, 50271931, 1491610 ####[facility] [address] [place] [address] Sodium [Moles/Vol] 139 mmol/L Normal 135-145 [facility] Comment on above: Performed By: #### 1 5817415, 5486488, 0633214, 0339764, 55486427, 5509185, 67566379, 3683446 ####[facility] [address] [place] [address] Creatinine [Mass/Vol] 0.9 mg/dL Normal 0.5-1.3 [facility] Comment on above: Performed By: #### 1 7175554, 5827310, 8758849, 5661868, 45893123, 5603045, 92000745, 1133704 ####[facility] [address] [place] [address] Urea nitrogen [Mass/Vol] 20 mg/dL Normal 5-21 [facility] Comment on above: Performed By: #### 1 3674157, 9781436, 6127194, 3201203, 07604293, 0290100, 43135980, 0996644 ####[facility] [address] [place] [address] Urea nitrogen/Creatinine [Mass ratio] 22 No Units High 10-20 [facility] Comment on above: Performed By: #### 1 9758403, 8331373, 1934366, 7067297, 68034024, 9932227, 13008346, 5954775 ####[facility] [address] [place] [address] Anion gap [Moles/Vol] 15 mmol/L Normal 6-16 [facility] Comment on above: Performed By: #### 1 0768580, 4054007, 5752427, 9451904, 49880460, 1137998, 22373672, 8308392 ####[facility] [address] [place] [address] Calcium [Mass/Vol] 8.9 mg/dL Normal 8.9-11.1 [facility] Comment on above: Performed By: #### 1 7259269, 4846382, 4352110, 2556905, 23330309, 1613308, 72342253, 5267505 ####[facility] [address] [place] [address] Chloride [Moles/Vol] 103 mmol/L Normal 101-111 [facility] Comment on above: Performed By: #### 1 2048047, 6746259, 7704132, 0255210, 66518432, 0365066, 08892585, 3289279 ####[facility] [address] [place] [address] CO2 [Moles/Vol] 25 mmol/L Normal 21-31 [facility] Comment on above: Performed By: #### 1 1856191, 8939670, 7655844, 2640506, 02176892, 0808131, 30118332, 9355791 ####[facility] [facility] [address] [place] [address] Glucose [Mass/Vol] 117 mg/dL Normal 55-199 [facility] Comment on above: Result Comment: If t his glucose result represents a fasting glucose, interpretation should refer to the following reference range: 55-99 mg/dL Performed By: #### 1 [id number], 8917624, 5617555, 3237899, 71490872, 0449528, 78500817, 1269664 ####[facility] [address] [place] [address] Potassium [Moles/Vol] 4.0 mmol/L Normal 3.5-5.3 [facility] Comment on above: Performed By: #### 1 4055765, 0528785, 3757262, 4322927, 73606313, 0985279, 36763042, 2796889 ####[facility] [address] [place] [address] Sodium [Moles/Vol] 139 mmol/L Normal 135-145 [facility] Comment on above: Performed By: #### 1 3032664, 7496890, 6760956, 3819360, 64504969, 6944100, 17855283, 3977617 ####[facility] [address] [place] [address] CBC w/ Auto Diffon Erythrocyte distribution width (RBC) [Ratio] 14.4 % High 10.9-14.2 [facility] Comment on above: Performed By: #### 1 5049411, 3770814, 2544723, 7513214, 56326180, 7214478, 59148197, 7044513 ####[place] [address] [place] [address] Hematocrit (Bld) [Volume fraction] 35.1 % Normal 34.0-46.0 [facility] Comment on above: Performed By: #### 1 6856101, 7049199, 8850999, 1709763, 14623272, 1224315, 48770750, 1614762 ####[facility] [address] [place] [address] Hemoglobin (Bld) [Mass/Vol] 11.6 g/dL Low 12.0-16.0 [facility] Comment on above: Performed By: #### 1 0981501, 8991876, 3909289, 2715652, 34188070, 8707446, 72171392, 1597187 ####[facility] [address] [place] [address] MCH (RBC) [Entitic mass] 26.4 pg Low 27.0-34.0 [facility] Comment on above: Performed By: #### 1 0230467, 0861064, 8962001, 4777258, 91824030, 8098361, 57307169, 5940399 ####[facility] [address] [place] [address] MCHC (RBC) [Mass/Vol] 33.0 g/dL Normal 31.4-36.0 [facility] Comment on above: Performed By: #### 1 0038093, 0288840, 3182626, 1496607, 24365741, 1222446, 20152494, 6472523 ####[place] [address] [place] [address] MCV (RBC) [Entitic vol] 79.9 fL Low 80.0-100.0 [facility] Comment on above: Performed By: #### 1 2974191, 8989162, 4421457, 0308429, 38137340, 7991188, 80910048, 2689234 ####[facility] [address] [place] [address] Platelet mean volume (Bld) [Entitic vol] 7.7 fL Normal 6.4-10.8 [facility] Comment on above: Performed By: #### 1 6935719, 5310661, 9914802, 2005756, 51310526, 6487643, 61530558, 5397213 ####[facility] [address] [place] [address] Platelets (Bld) [#/Vol] 251.0 E9/L Normal 150.0-500.0 [facility] Comment on above: Performed By: #### 1 4735838, 8852362, 5300718, 2564975, 55131979, 4662713, 86885136, 1276798 ####[facility] [address] [place] [address] RBC (Bld) [#/Vol] 4.4 E12/L Normal 4.3-5.9 [facility] Comment on above: Performed By: #### 1 9554625, 1637854, 5556956, 0265467, 76826617, 0098226, 15183199, 7394157 ####[facility] [address] [place] [address] WBC corrected for nucl RBC Auto (Bld) [#/Vol] 6.4 E9/L Normal 4.0-11.0 [facility] Comment on above: Performed By: #### 1 3672247, 2724407, 8386526, 6320695, 13726526, 9591263, 22604582, 6881760 ####[facility] [address] [place] [address] Erythrocyte distribution width (RBC) [Ratio] 14.4 % High 10.9-14.2 [facility] Comment on above: Performed By: #### 1 7636485, 5131540, 7842634, 9705287, 21886967, 7933045, 77638653, 3857648 ####[facility] [address] [place] [address] Hematocrit (Bld) [Volume fraction] 35.1 % Normal 34.0-46.0 [facility] Comment on above: Performed By: #### 1 9775469, 9325146, 8769574, 8528173, 94865647, 7958039, 02749880, 3133405 ####[address] [place] [address] Hemoglobin (Bld) [Mass/Vol] 11.6 g/dL Low 12.0-16.0 [facility] Comment on above: Performed By: #### 1 5477907, 5043164, 7848377, 7969026, 91386768, 0320875, 26460973, 2790742 ####[facility] [address] [place] [address] MCH (RBC) [Entitic mass] 26.4 pg Low 27.0-34.0 [facility] Comment on above: Performed By: #### 1 2187784, 9404172, 3369940, 7972745, 02471440, 3673559, 22760405, 3175063 ####[place] [address] [place] [address] MCHC (RBC) [Mass/Vol] 33.0 g/dL Normal 31.4-36.0 [facility] Comment on above: Performed By: #### 1 3632659, 8853524, 5664533, 2434455, 86821992, 1713443, 11952988, 7419043 ####[place] [address] MCV (RBC) [Entitic vol] 79.9 fL Low 80.0-100.0 [facility] Comment on above: Performed By: #### 1 5270242, 3046745, 5595782, 1300658, 32123027, 4220059, 14046359, 7941399 ####[place] [address] Platelet mean volume (Bld) [Entitic vol] 7.7 fL Normal 6.4-10.8 [facility] Comment on above: Performed By: #### 1 7297814, 8505627, 4094326, 1332276, 04407725, 6967594, 41516403, 9862270 ####[place] [address] Platelets (Bld) [#/Vol] 251.0 E9/L Normal 150.0-500.0 [facility] Comment on above: Performed By: #### 1 5478650, 9236487, 8038378, 7480577, 14618400, 9690740, 39685842, 2522124 ####[place] [address] RBC (Bld) [#/Vol] 4.4 E12/L Normal 4.3-5.9 [facility] Comment on above: Performed By: #### 1 2765368, 6605358, 2850851, 3947264, 68600970, 5427302, 13135694, 2423699 ####[facility] [address] [place] [address] WBC corrected for nucl RBC Auto (Bld) [#/Vol] 6.4 E9/L Normal 4.0-11.0 [facility] Comment on above: Performed By: #### 1 1712489, 4492158, 8767316, 8805443, 94862766, 5342893, 13596234, 8114289 ####[facility] [address] [place] [address] CHEMISTRYOrdered By: SYSTEM SYSTEM on 06-08-2023 Troponin I.cardiac [Mass/Vol] 2.70 pg/mL Low 10.10 - 27.10 pg/mL [facility] Comment on above: Interpretive Data: T he 95% CI (Confidence Interval) PPV (Positive Predictive Value) for myocardial infarction in females is 38 pg/mL, in males 51 pg/mL. The results should be used in conjunction with clinical conditions of myocardial infarction. (Access High Sensitivity Troponin I Instructions For Use, Misha [place], February 2018) Albumin [Mass/Vol] 3.6 g/dL Normal 3.3 - 5.0 gm/dL [facility] Albumin/Globulin [Mass ratio] 1.1 {ratio} Normal 1.1 - 2.2 [facility] ALP [Catalytic activity/Vol] 61 [iU]/d Normal 21 - 98 Int._Unit/L [facility] ALT No additional P-5'-P [Catalytic activity/Vol] 21 [iU]/d Normal 6 - 46 Int._Unit/L [facility] Anion gap [Moles/Vol] 15 mmol/L Normal 6 - 16 mEq/L [facility] AST [Catalytic activity/Vol] 18 [iU]/d Normal 5 - 43 Int._Unit/L [facility] Bilirubin [Mass/Vol] 0.7 mg/dL Normal 0.0 - 1 .1 mg/dL [facility] Bilirubin.direct [Mass/Vol] mg/dL Normal 0.1 - 0.4 mg/dL [facility] Bilirubin.indirect [Mass or moles/Vol] Unable to Calculate mg/dL Invalid Interpretation Code 0.1 - 0.9 mg/dL [facility] Calcium [Mass/Vol] 8.9 mg/dL Normal 8.9 - 11. 1 mg/dL [facility] Chloride [Moles/Vol] 103 mmol/L Normal 101 - 1 11 mmol/L [facility] CO2 [Moles/Vol] 25 mmol/L Normal 21 - 31 mmol/L [facility] Creatinine [Mass/Vol] 0.9 mg/dL Normal 0.5 - 1.3 mg/dL [facility] GFR/1.73 sq M.predicted among non-blacks MDRD (S/P/Bld) [Vol rate/Area] 72 mL/min/1.73 m2 Normal >=59mL/min/1 .73 m2 [facility] Comment on above: Interpretive Data: C hronic kidney disease could be indicated at eGFR's of less than 60 mL/min/1.73m2. Kidney failure is indicated at less than 15 mL/min/1.73m2. Globulin (S) [Mass/Vol] 3.2 g/dL Normal 1.4 - 4.0 gm/dL [facility] Glucose [Mass/Vol] 117 mg/dL Normal 55 - 199 mg/dL [facility] Comment on above: Interpretive Data: I f this glucose result represents a fasting glucose, interpretation should refer to the following reference range: 55-99 mg/dL Lipase [Catalytic activity/Vol] 45 U/L Normal 13 - 58 unit/L [facility] Potassium [Moles/Vol] 4.0 mmol/L Normal 3.5 - 5.3 mmol/L [facility] Protein [Mass/Vol] 6.8 g/dL Normal 6.0 - 7.8 gm/dL [facility] Sodium [Moles/Vol] 139 mmol/L Normal 135 - 145 mmol/L [facility] Troponin I.cardiac [Mass/Vol] 2.90 pg/mL Low 10.10 - 27.10 pg/mL [facility] Comment on above: Interpretive Data: T he 95% CI (Confidence Interval) PPV (Positive Predictive Value) for myocardial infarction in females is 38 pg/mL, in males 51 pg/mL. The results should be used in conjunction with clinical conditions of myocardial infarction. (Access High Sensitivity Troponin I Instructions For Use, Misha Mila, February 2018) Urea nitrogen [Mass/Vol] 20 mg/dL Normal 5 - 21 mg/dL [facility] Urea nitrogen/Creatinine [Mass ratio] 22 mg/mg High 10 - 20 [facility] COAGULATIONOrdered By: Nishi Fairbanks on 06-08-2023 aPTT Coag (PPP) [Time] 33.4 s Normal 25.1 - 36.5 second(s) [facility] Comment on above: Interpretive Data: Mario mendosa 15 days - 4 weeks 1 - 5 months 6 - 11 months 1 - 5 years 6 - 10 years 11 - 17 years PTT Mean: 35.4 (27.6-45.6) Mean: 33.5 (24.8-40.7) Mean: 32.4 (25.1-40.7) Mean: 31.6 (24.0-39.2) Mean: 31.6 (26.9-38.7) Mean: 31.0 (24.6-38.4) Pediatric Reference ranges were obtained from a study by Dinh Archer et al. prepared from 1437 samples obtained at 7 different centers using the same coagulation reagent and instrumentation as [facility]. Currently there are no coagulation studies available worldwide for children to 14 days, and no normal ranges. Heparin therapeutic range (represented by Anti-Factor Xa activity of 0.2 - 0.4 U/mL) corresponds to PTT of 56.6 - 109.0 sec. INR Coag (PPP) [Relative time] 0.9 {INR} Invalid Interpretation Code [facility] Comment on above: Interpretive Data: I NR results are specifically intended to assess patients stabilized on long-term Anticoagulation therapy suggested INR s Less Intensive Anticoagulation 2.0 3.0 Conventional Range 3.0 4.5 PT Coag (PPP) [Time] 10.3 s Normal 9.4 - 1 2.5 second(s) [facility] Comment on above: Interpretive Data: 1 5 days - 4 weeks 1 - 5 months 6 -11 months 1-5 years 6-10 years 11 -17 years Mean: 11.2 (9.5-12.6) Mean: 11.0 (9.7-12.8) Mean: 11.0 (9.8-13.0) Mean: 11.3 (9.9-13.4) Mean: 11.7 (10.0-14.6) Mean: 11.8 (10.0 - 14.1) Pediatric Reference ranges were obtained from a study by grisel Samuels al. prepared from 1437 samples obtained at 7 different centers using the same coagulation reagent and instrumentation as [facility]. Currently there are no coagulation studies available worldwide for children to 14 days, and no normal ranges. CT Spine Cervical w/o Contra ston 06-08-2023 CT Spine Cervical w/o Contrast Exam Date/Time: 06/08/2023 13:37 EST Reason for Exam: Neck trauma, dangerous injury mechanism;Other (please specify) Report IMPRESSION: No acute fracture or traumatic malalignment. EXAMINATION: CT Spine Cervical w/o Contrast HISTORY: Neck trauma, dangerous injury mechanism. TECHNIQUE: CT of the cervical spine without IV contrast. Spiral, high resolution axial images were obtained from the skull base to the cervicothoracic junction with sagittal and coronal planar reconstructions. All CT scans at this facility use dose modulation, iterative reconstruction, and/or weight based dosing when appropriate to reduce radiation dose to as low as reasonably achievable. COMPARISON: None. RESULT: Counting reference: Craniocervical junction. Alignment: No traumatic malalignment. Straightening of the cervical lordosis, likely positional or related to muscle spasm. Craniocervical junction: Craniocervical junction is normal. Osseous structures/fracture: No evidence for acute fracture. No destructive osseous lesions. Cervical soft tissues: The paraspinal soft tissues planes are maintained. Canal and foramina, degenerative changes: Mild degenerative changes without distinct high-grade bony canal or foraminal narrowing. Ordering Provider: Serafin James FINAL REPORT Dictated: 06/08/2023 1:45 pm Herman Brito MD Signed (Electronic Signature): 06/08/2023 1:45 pm Signed by: Herman Brito MD Transcribed by: NAINA Technologist: REBECCA Candelario [facility] CT Spine Cervical w/o Contrast Exam Date/Time: 06/08/2023 13:37 EST Reason for Exam: Neck trauma, dangerous injury mechanism;Other (please specify) Report IMPRESSION: No acute fracture or traumatic malalignment. EXAMINATION: CT Spine Cervical w/o Contrast HISTORY: Neck trauma, dangerous injury mechanism. TECHNIQUE: CT of the cervical spine without IV contrast. Spiral, high resolution axial images were obtained from the skull base to the cervicothoracic junction with sagittal and coronal planar reconstructions. All CT scans at this facility use dose modulation, iterative reconstruction, and/or weight based dosing when appropriate to reduce radiation dose to as low as reasonably achievable. COMPARISON: None. RESULT: Counting reference: Craniocervical junction. Alignment: No traumatic malalignment. Straightening of the cervical lordosis, likely positional or related to muscle spasm. Craniocervical junction: Craniocervical junction is normal. Osseous structures/fracture: No evidence for acute fracture. No destructive osseous lesions. Cervical soft tissues: The paraspinal soft tissues planes are maintained. Canal and foramina, degenerative changes: Mild degenerative changes without distinct high-grade bony canal or foraminal narrowing. Ordering Provider: Serafin James FINAL REPORT Dictated: 06/08/2023 1:45 pm Herman Brito MD Signed (Electronic Signature): 06/08/2023 1:45 pm Signed by: Herman Brito MD Transcribed by: NAINA Technologist: REBECCA Candelario [facility] CTA Cheston 06-08-2023 CTA Chest Exam Date/Time: 06/08/2023 13:40 EST Reason for Exam: Acute aortic syndrome (AAS) suspected;Other (please specify) Report IMPRESSION: No evidence for acute aortic syndrome, or other acute process in the thorax. CTA Chest CLINICAL HISTORY: Right-sided neck pain radiating to the right arm. 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 TECHNIQUE: CTA of the chest according to dissection protocol with noncontrast phase, and arterial phase images, including multiple sagittal and coronal reconstructions, thin reconstructions, and volume reconstruction. Contrast: 100 mL of intravenous Isovue-370. All CT scans at this facility use dose modulation, iterative reconstruction, and/or weight based dosing when appropriate to reduce radiation dose to as low as reasonably achievable. COMPARISON: Chest x-ray 06/08/2023. RESULT: VASCULAR: Thoracic aorta normal in caliber without evidence for acute aortic syndrome. Mild atherosclerotic disease and mild tortuosity. Aortic arch branch vessels appear patent. Visualized upper abdominal aorta unremarkable. CHEST: Lung parenchyma and pleura: Central airways are patent. No consolidation. No suspicious pulmonary nodules. No pleural effusion or pneumothorax. Thoracic inlet, heart, and mediastinum: Visualized thyroid unremarkable. Calcified lymph nodes especially in the subcarinal and left hilar regions. Normal pulmonary size artery. Normal heart size. No coronary artery calcifications. No pericardial effusion or thickening. Small hiatal hernia. Bones: No acute osseous findings. No destructive osseous lesions. Degenerative changes. DISH. Soft tissues: Unremarkable. Upper abdomen: No acute abnormality in the imaged upper abdomen. Diffuse hepatic steatosis. Report Ordering Provider: Serafin James FINAL REPORT Dictated: 06/08/2023 1:49 pm Herman Brito MD Signed (Electronic Signature): 06/08/2023 1:49 pm Signed by: Herman Brito MD Transcribed by: NAINA Technologist: REBECCA Technical Comments GFR (mL/min/1/73m2) dissection protocol Contrast: Isovue 370 Contrast amount in ml's: 100 Normal [facility] CTA Chest Exam Date/Time: 06/08/2023 13:40 EST Reason for Exam: Acute aortic syndrome (AAS) suspected;Other (please specify) Report IMPRESSION: No evidence for acute aortic syndrome, or other acute process in the thorax. CTA Chest CLINICAL HISTORY: Right-sided neck pain radiating to the right arm. 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 TECHNIQUE: CTA of the chest according to dissection protocol with noncontrast phase, and arterial phase images, including multiple sagittal and coronal reconstructions, thin reconstructions, and volume reconstruction. Contrast: 100 mL of intravenous Isovue-370. All CT scans at this facility use dose modulation, iterative reconstruction, and/or weight based dosing when appropriate to reduce radiation dose to as low as reasonably achievable. COMPARISON: Chest x-ray 06/08/2023. RESULT: VASCULAR: Thoracic aorta normal in caliber without evidence for acute aortic syndrome. Mild atherosclerotic disease and mild tortuosity. Aortic arch branch vessels appear patent. Visualized upper abdominal aorta unremarkable. CHEST: Lung parenchyma and pleura: Central airways are patent. No consolidation. No suspicious pulmonary nodules. No pleural effusion or pneumothorax. Thoracic inlet, heart, and mediastinum: Visualized thyroid unremarkable. Calcified lymph nodes especially in the subcarinal and left hilar regions. Normal pulmonary size artery. Normal heart size. No coronary artery calcifications. No pericardial effusion or thickening. Small hiatal hernia. Bones: No acute osseous findings. No destructive osseous lesions. Degenerative changes. DISH. Soft tissues: Unremarkable. Upper abdomen: No acute abnormality in the imaged upper abdomen. Diffuse hepatic steatosis. Report Ordering Provider: Serafin James FINAL REPORT Dictated: 06/08/2023 1:49 pm Herman Brito MD Signed (Electronic Signature): 06/08/2023 1:49 pm Signed by: Herman Brito MD Transcribed by: NAINA Technologist: REBECCA Technical Comments GFR (mL/min/1/73m2) dissection protocol Contrast: Isovue 370 Contrast amount in ml's: 100 Normal [facility] Consent for Treatmenton Consent for Treatment [id number] #1.00TIFF Normal [facility] Consent for Treatment [id number] #1.00TIFF Normal [facility] Discharge Instructionson Discharge Instructions [id number] 2#1.00TIFF [facility] Discharge Instructions [id number] 2#1.00TIFF [facility] ED Clinical Summaryon 2022 ED Clinical Summary [place] [address] ED Clinical Summary Person Information [facility]: [facility] Age[facility] 62 Years : 1960 Sex: Female Language: Bangladeshi PCP: LORI WOOD CNP Marital Status: Visit Id: Visit Reason: Arm pain-swelling; Back pain; Chest pain; CHEST/BACK/ARM PAIN Speciality: Acuity: 3 Enc Type: Emergency Med Service: Emergency Arrival: 06/08/2023 09:58:07 Discharge: 06/08/2023 14:56:13 LOS: 000 04:58 Checkin: 06/08/2023 09:58:07 Checkout: 06/08/2023 14:56:13 Dispo Type: Home (Routine DC) EVENTS: Event Name Event Status Request Date/Time Start Date/Time Complete Date/Time Arrive Complete 06/08/2023 09:58:07 06/08/2023 09:58:07 06/08/2023 09:58:07 Document Home Meds Request 06/08/2023 09:58:07 Triage Complete 06/08/2023 09:58:07 06/08/2023 10:10:11 06/08/2023 10:10:11 Bed Assign Complete 06/08/2023 10:00:08 06/08/2023 10:00:08 06/08/2023 10:00:08 Dr Exam Complete 06/08/2023 10:00:08 06/08/2023 10:00:22 06/08/2023 10:00:22 RN Exam Complete 06/08/2023 10:00:08 06/08/2023 11:09:04 06/08/2023 11:09:04 Registration Complete 06/08/2023 10:00:22 06/08/2023 10:18:48 06/08/2023 10:18:48 EKG Complete 06/08/2023 10:01:04 06/08/2023 10:11:13 Pending Labs Request 06/08/2023 10:01:14 Lab Complete 06/08/2023 10:01:14 06/08/2023 11:08:01 Patient Care Request 06/08/2023 10:01:14 RT Request 06/08/2023 10:01:14 X-Ray Complete 06/08/2023 10:08:39 06/08/2023 11:33:14 06/08/2023 11:41:53 Reg Complete Request 06/08/2023 10:18:48 Reg Bed Request Complete 06/08/2023 10:18:48 06/08/2023 10:18:48 06/08/2023 10:18:48 Pending Labs Complete 06/08/2023 10:37:03 06/08/2023 10:37:03 06/08/2023 11:08:00 Lab Complete 06/08/2023 10:37:03 06/08/2023 10:37:03 06/08/2023 11:08:00 Pending Labs Complete 06/08/2023 10:45:43 06/08/2023 10:45:43 06/08/2023 10:45:50 Lab Complete 06/08/2023 10:45:43 06/08/2023 10:45:43 06/08/2023 10:45:50 Wet Read Complete 06/08/2023 11:41:53 06/08/2023 12:07:15 06/08/2023 12:07:15 CT Complete 06/08/2023 12:25:28 06/08/2023 13:13:32 06/08/2023 13:40:36 Pending Labs Complete 06/08/2023 13:53:12 06/08/2023 13:53:12 06/08/2023 13:53:12 EKG Complete 06/08/2023 14:00:08 06/08/2023 14:11:30 Discharge Complete 06/08/2023 14:36:32 06/08/2023 14:56:19 06/08/2023 14:56:19 Transfer Complete 06/08/2023 14:56:19 06/08/2023 14:56:19 06/08/2023 14:56:19 ADDRESS: [address] [place] [id number] PHYS DOC NOTES: MEDICAL INFORMATION: Prescriptions Given: New Medications [facility] #[id number], [address] [place], [place] [phone], [phone] acetaminophen-hydroc odone (Mcclellan 325 mg-5 mg oral tablet) 1 Tablets By Mouth every 6 hours as needed for pain for 3 Days. Refills: 0. predniSONE (predniSONE 50 mg Tab) 1 Tablets By Mouth every day for 5 Days. Refills: 0. Medications to Continue with No Changes Other Medications acetaminophen (Tylenol 8 HR Arthritis Pain) buPROPion (buPROPion 150 mg ER Tab) citalopram (citalopram 20 mg Tab) lamotrigine (Lamictal 150 mg Tab) meloxicam (meloxicam 15 mg Tab) metformin (metformin 1000 mg Tab) omeprazole (omeprazole 10 mg Cap-EC) pravastatin (pravastatin 40 mg Tab) PATIENT EDUCATION INFORMATION: Instructions: Follow up: With: Address: When: Haider Mcgee [address] [place] [address] Business (1) In 3 days 06/11/2023 DIAGNOSIS: Arm pain; Chest pain Normal [facility] ED Clinical Summary [address] [address] ED Clinical Summary [facility] Age[facility] 62 Years : 1960 Sex: Female Language: Bangladeshi PCP: LORI WOOD CNP Marital Status: Visit Id: Visit Reason: Arm pain-swelling; Back pain; Chest pain; CHEST/BACK/ARM PAIN Speciality: Acuity: 3 Enc Type: Emergency Med Service: Emergency Arrival: 06/08/2023 09:58:07 Discharge: 06/08/2023 14:56:13 LOS: 000 04:58 Checkin: 06/08/2023 09:58:07 Checkout: 06/08/2023 14:56:13 Dispo Type: Home (Routine DC) EVENTS: Event Name Event Status Request Date/Time Start Date/Time Complete Date/Time Arrive Complete 06/08/2023 09:58:07 06/08/2023 09:58:07 06/08/2023 09:58:07 Document Home Meds Request 06/08/2023 09:58:07 Triage Complete 06/08/2023 09:58:07 06/08/2023 10:10:11 06/08/2023 10:10:11 Bed Assign Complete 06/08/2023 10:00:08 06/08/2023 10:00:08 06/08/2023 10:00:08 Dr Exam Complete 06/08/2023 10:00:08 06/08/2023 10:00:22 06/08/2023 10:00:22 RN Exam Complete 06/08/2023 10:00:08 06/08/2023 11:09:04 06/08/2023 11:09:04 Registration Complete 06/08/2023 10:00:22 06/08/2023 10:18:48 06/08/2023 10:18:48 EKG Complete 06/08/2023 10:01:04 06/08/2023 10:11:13 Pending Labs Request 06/08/2023 10:01:14 Lab Complete 06/08/2023 10:01:14 06/08/2023 11:08:01 Patient Care Request 06/08/2023 10:01:14 RT Request 06/08/2023 10:01:14 X-Ray Complete 06/08/2023 10:08:39 06/08/2023 11:33:14 06/08/2023 11:41:53 Reg Complete Request 06/08/2023 10:18:48 Reg Bed Request Complete 06/08/2023 10:18:48 06/08/2023 10:18:48 06/08/2023 10:18:48 Pending Labs Complete 06/08/2023 10:37:03 06/08/2023 10:37:03 06/08/2023 11:08:00 Lab Complete 06/08/2023 10:37:03 06/08/2023 10:37:03 06/08/2023 11:08:00 Pending Labs Complete 06/08/2023 10:45:43 06/08/2023 10:45:43 06/08/2023 10:45:50 Lab Complete 06/08/2023 10:45:43 06/08/2023 10:45:43 06/08/2023 10:45:50 Wet Read Complete 06/08/2023 11:41:53 06/08/2023 12:07:15 06/08/2023 12:07:15 CT Complete 06/08/2023 12:25:28 06/08/2023 13:13:32 06/08/2023 13:40:36 Pending Labs Complete 06/08/2023 13:53:12 06/08/2023 13:53:12 06/08/2023 13:53:12 EKG Complete 06/08/2023 14:00:08 06/08/2023 14:11:30 Discharge Complete 06/08/2023 14:36:32 06/08/2023 14:56:19 06/08/2023 14:56:19 Transfer Complete 06/08/2023 14:56:19 06/08/2023 14:56:19 06/08/2023 14:56:19 ADDRESS: [address] [place] [id number] PHYS DOC NOTES: MEDICAL INFORMATION: Prescriptions Given: New Medications [id number], [address] [place] [address], [place] [phone], [phone] acetaminophen-hydroc odone (Mcclellan 325 mg-5 mg oral tablet) 1 Tablets By Mouth every 6 hours as needed for pain for 3 Days. Refills: 0. predniSONE (predniSONE 50 mg Tab) 1 Tablets By Mouth every day for 5 Days. Refills: 0. Medications to Continue with No Changes Other Medications acetaminophen (Tylenol 8 HR Arthritis Pain) buPROPion (buPROPion 150 mg ER Tab) citalopram (citalopram 20 mg Tab) lamotrigine (Lamictal 150 mg Tab) meloxicam (meloxicam 15 mg Tab) metformin (metformin 1000 mg Tab) omeprazole (omeprazole 10 mg Cap-EC) pravastatin (pravastatin 40 mg Tab) PATIENT EDUCATION INFORMATION: Instructions: Follow up: With: Address: When: Haider Mcgee [facility] [place] [address] Business (1) In 3 days 06/11/2023 DIAGNOSIS: Arm pain; Chest pain Normal [facility] ED Note-Physicianon 06-08-20 ED Note-Physician Basic Information Time Seen: Serafin James DO 06/08/2023 10:00 History of Present Illness 62 female presents to the emergency department with chest pain. Patient states this started yesterday in her substernal chest but then throughout the night she started to feel some heaviness and some pain into her right upper extremity her right shoulder and down her right arm. This seemed to wax and wane with intensity. She has never had anything like this before. 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 She has not yet had the stress or echo. She has the following CAD risk factors: Age, obesity, diabetes, and strong family history. She has never had a stress test or heart catheterization in the past. Patient has no DVT or PE risk factors no pleuritic discomfort. No pain or swelling into her abdomen or legs. She cannot identify any obvious aggravating or alleviating factors. No other aggravating or relieving factors no other associated symptoms no other prior treatments or complaints. Family: Reviewed and noncontributory Social: lives at home Review of systems negative unless otherwise specified in the HPI. Physical Exam General: The patient appears well and in no apparent distress. Patient is resting comfortably on cart. Skin: Warm, dry, no pallor noted. Head: Normocephalic, atraumatic Neck: No JVD Eye: PERRLA, EOMI ENT: Moist mucus membranes Cardiovascular: Regular rate normal peripheral perfusion Respiratory: No respiratory distress no accessory muscle use no obvious audible wheezing Chest Wall: no deformity Musculoskeletal: normal ROM, no deformity, no swelling GI: Soft no obvious distention. No rebound or rigidity. No guarding. No tenderness. Neurological: A&O moves all extremities equal strength and symmetry Psychiatric: Cooperative and appropriate Procedure Heart Score for Major Cardiac Event History: Example factors for history - pattern of chest pain, onset, duration, relation with exercise, stress or cold, localization, concominant symptoms. reaction to sublingual nitrates, [x] Highly suspicious +2 [] Moderately suspicious +1 [] Slightly suspicious 0 EKG: [] Significant ST-Depression +2 [] Non specific repolarization disturbance +1 [x] Normal 0 Age: [] >= 65 +2 [x] 45-65 + 1 [] <45 0 Risk Factors: (HLD, HTN, DM, Cigarette Smoking, Pos Family Hx, Obesity) [x] >3 risk factors or hx of atheroslerotic disease + 2 [] 1-2 risk factors + 1 [] No risk factors known 0 Troponin: [] >= 3X normal + 2 [] 1-3X normal + 1 [x] <= Normal 0 [] 0-3 Points 0.9 - 1.7% risk of major adverse cardiac event in 6 weeks [x] 4-6 Points 12-16.6% risk of major adverse cardiac event in 6 weeks [] 7-10 Points 50-65% risk of major adverse cardiac event in 6 weeks [] 0-3 Points with 2 sets of negative cardiac markers <1% risk of major adverse cardiac event in 30 days. Medical Decision Making Workup in the ER has been reviewed and noted. Patient did have full workup in the emergency department and cardiac enzymes are negative. We added on CTA of the chest to rule out dissection we added on CT of the C-spine to rule out radicular cervical pain. Repeat EKG is benign repeat cardiac enzymes are benign. We talked about admitting the patient to the hospital and she declined I do think this is reasonable given the picture. Patient will be treated with pain medicine for breakthrough pain also started on low-dose steroid with close monitoring of her blood sugars in the outpatient setting. She does have follow-up this week with her mechanical engineering director as well. She is comfortable being discharged home at this time. She is also educated on signs and symptoms of worsening clinical picture and to return if these occur. Assessment/Plan Arm pain (M79.603: Pain in arm, unspecified) Chest pain (R07.9: Chest pain, unspecified) Ordered: acetaminophen-hydroc odone, 1 tab(s), Oral, q6hr for pain for 3 day(s), 10 tab(s), Refill(s) 0, [id number], 168, cm, 06/08/23 10:10:00 EST, Height/Length Dosing, 102.3, kg, 06/08/23 10:10:00 EST, Weight Dosing Orders: predniSONE, 50 mg = 1 tab(s), Oral, Daily, X 5 day(s), # 5 tab(s), Refills(s) 0, Pharmacy: [id number], 168, cm, 06/08/23 10:10:00 EST, Height/Length Dosing, 102.3, kg, 06/08/23 10:10:00 EST, Weight Dosing Automated Diff Basic Metabolic Panel CBC w/ Auto Diff CT Spine Cervical w/o Contrast CTA Chest ECG 12 Lead Adult ECG 12 Lead Adult ED Cardiac Monitoring eGFR Extra SST Tube Hepatic Function Panel Lipase Level Oxygen Saturation Oxygen Therapy PT & PTT Saline Lock Insert Troponin 0 Hr. Troponin 3 Hr. Troponin 6 Hr. Troponin 9 Hr. XR Chest 2 Views Disposition Plan Discharge Prescription List (more content not included)... Normal [facility] Comment on above: Result Comment: Elec tronically Signed By: Serafin James DO\.br\Date and Time Signed: 06/08/23 14:40 EST ED Note-Physician Basic Information Time Seen: Serafin James DO 06/08/2023 10:00 History of Present Illness 62 female presents to the emergency department with chest pain. Patient states this started yesterday in her substernal chest but then throughout the night she started to feel some heaviness and some pain into her right upper extremity her right shoulder and down her right arm. This seemed to wax and wane with intensity. She has never had anything like this before. 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 She has not yet had the stress or echo. She has the following CAD risk factors: Age, obesity, diabetes, and strong family history. She has never had a stress test or heart catheterization in the past. Patient has no DVT or PE risk factors no pleuritic discomfort. No pain or swelling into her abdomen or legs. She cannot identify any obvious aggravating or alleviating factors. No other aggravating or relieving factors no other associated symptoms no other prior treatments or complaints. Family: Reviewed and noncontributory Social: lives at home Review of systems negative unless otherwise specified in the HPI. Physical Exam General: The patient appears well and in no apparent distress. Patient is resting comfortably on cart. Skin: Warm, dry, no pallor noted. Head: Normocephalic, atraumatic Neck: No JVD Eye: PERRLA, EOMI ENT: Moist mucus membranes Cardiovascular: Regular rate normal peripheral perfusion Respiratory: No respiratory distress no accessory muscle use no obvious audible wheezing Chest Wall: no deformity Musculoskeletal: normal ROM, no deformity, no swelling GI: Soft no obvious distention. No rebound or rigidity. No guarding. No tenderness. Neurological: A&O moves all extremities equal strength and symmetry Psychiatric: Cooperative and appropriate Procedure Heart Score for Major Cardiac Event History: Example factors for history - pattern of chest pain, onset, duration, relation with exercise, stress or cold, localization, concominant symptoms. reaction to sublingual nitrates, [x] Highly suspicious +2 [] Moderately suspicious +1 [] Slightly suspicious 0 EKG: [] Significant ST-Depression +2 [] Non specific repolarization disturbance +1 [x] Normal 0 Age: [] >= 65 +2 [x] 45-65 + 1 [] <45 0 Risk Factors: (HLD, HTN, DM, Cigarette Smoking, Pos Family Hx, Obesity) [x] >3 risk factors or hx of atheroslerotic disease + 2 [] 1-2 risk factors + 1 [] No risk factors known 0 Troponin: [] >= 3X normal + 2 [] 1-3X normal + 1 [x] <= Normal 0 [] 0-3 Points 0.9 - 1.7% risk of major adverse cardiac event in 6 weeks [x] 4-6 Points 12-16.6% risk of major adverse cardiac event in 6 weeks [] 7-10 Points 50-65% risk of major adverse cardiac event in 6 weeks [] 0-3 Points with 2 sets of negative cardiac markers <1% risk of major adverse cardiac event in 30 days. Medical Decision Making Workup in the ER has been reviewed and noted. Patient did have full workup in the emergency department and cardiac enzymes are negative. We added on CTA of the chest to rule out dissection we added on CT of the C-spine to rule out radicular cervical pain. Repeat EKG is benign repeat cardiac enzymes are benign. We talked about admitting the patient to the hospital and she declined I do think this is reasonable given the picture. Patient will be treated with pain medicine for breakthrough pain also started on low-dose steroid with close monitoring of her blood sugars in the outpatient setting. She does have follow-up this week with her mechanical engineering director as well. She is comfortable being discharged home at this time. She is also educated on signs and symptoms of worsening clinical picture and to return if these occur. Assessment/Plan Arm pain (M79.603: Pain in arm, unspecified) Chest pain (R07.9: Chest pain, unspecified) Ordered: acetaminophen-hydroc odone, 1 tab(s), Oral, q6hr for pain for 3 day(s), 10 tab(s), Refill(s) 0, [id number], 168, cm, 06/08/23 10:10:00 EST, Height/Length Dosing, 102.3, kg, 06/08/23 10:10:00 EST, Weight Dosing Orders: predniSONE, 50 mg = 1 tab(s), Oral, Daily, X 5 day(s), # 5 tab(s), Refills(s) 0, Pharmacy: [id number], 168, cm, 06/08/23 10:10:00 EST, Height/Length Dosing, 102.3, kg, 06/08/23 10:10:00 EST, Weight Dosing Automated Diff Basic Metabolic Panel CBC w/ Auto Diff CT Spine Cervical w/o Contrast CTA Chest ECG 12 Lead Adult ECG 12 Lead Adult ED Cardiac Monitoring eGFR Extra SST Tube Hepatic Function Panel Lipase Level Oxygen Saturation Oxygen Therapy PT & PTT Saline Lock Insert Troponin 0 Hr. Troponin 3 Hr. Troponin 6 Hr. Troponin 9 Hr. XR Chest 2 Views Disposition Plan Discharge Prescription List (more content not included)... Normal [facility] Comment on above: Result Comment: Elec tronically Signed By: Serafin James DO\.br\Date and Time Signed: 06/08/23 14:40 EST ED Patient Education Noteon 06-08-2023 ED Patient Education Note Normal [facility] ED Patient Education Note Normal [facility] ED Patient Summaryon 023 ED Patient Summary [address] [address] Patient Discharge Instructions Person Information Name: JANE CHIRINOS Age: 62 Years Arrival Date: 06/08/2023 09:58:07 Discharge Diagnosis: Arm pain; Chest pain Primary Care Physician: LORI WOOD CNP Provider Information Primary Provider: Serafin James DO Advanced Security Team Lead:None The exam and treatment you received in the Emergency Department were for an urgent problem and are not intended as complete care. It is important that you follow up with a doctor, nurse practitioner, or physician?s ice cream freezer assistant for ongoing care. If your symptoms become worse or you do not improve as expected and you are unable to reach your usual health care provider, you should return to the Emergency Department. We are available 24 hours a day. JANE CHIRINOS has been given the following list of patient education materials, prescriptions and follow-up instructions: Follow-up Instructions: With: Address: When: Haider Mcgee [address] [place] [id number] Business (1) In 3 days 06/11/2023 In the event that this physician does not participate in your insurance network, please consult with your insurance company to find a nearby participating provider. Patient Education Materials: A MESSAGE TO ALL PATIENTS REGARDING OPIOIDS PRESCRIPTION OPIOIDS: WHAT YOU NEED TO KNOW Prescription opioids can be used to help relieve udcrhvrz-jb-nmmwjv pain and are often prescribed following a surgery or injury, or for certain health conditions. These medications can be an important part of the treatment but also come with serious risks. It is important to work with your healthcare provider to make sure you are getting the safest, most effective care. WHAT ARE THE RISKS AND SIDE EFFECTS OF OPIOID USE? Prescription opioids carry serious risks of addiction and overdose, especially with prolonged use. An opioid overdose, often marked by slowed breathing, can cause sudden . The use of prescription opioids can have a number of side effects as well, even when taken as directed: ? Tolerance?meaning you might need to take more of the medication for the same pain relief ? Physical dependence?meaning you have symptoms of withdrawal when a medication is stopped ? Increased sensitivity to pain ? Constipation ? Nausea, vomiting, and dry mouth ? Sleepiness and dizziness ? Confusion ? Depression ? Low levels of testosterone that can result in lower sex drive, energy, and strength ? Itching and sweating RISKS ARE GREATER WITH: ? History of drug misuse, substance use disorder, or overdose ? Mental health conditions (such as depression or anxiety) ? Sleep apnea ? Older age (65 years and older) ? Avoid alcohol while taking prescription opioids. Also, unless specifically advised by your health care provider, medications to avoid include: ? Benzodiazepines (such as Xanax or Valium) ? Muscle relaxants (such as Soma or Flexeril) ? Hypnotics (such as Ambien or Lunesta) ? Other prescription opioids KNOW YOUR OPTIONS Talk to your health care provider about ways to manage your pain that don?t involve prescription opioids. Some of these options may actually work better and have fewer risks and side effects. Options may include: ? Pain relievers such as acetaminophen, ibuprofen, and naproxen ? Some medication that are also used for depression or seizures ? Physical therapy and exercise ? Cognitive behavioral therapy, a psychological, goal-directed approach, in which patients learn how to modify physical, behavioral, and emotional triggers of pain and stress. IF YOU ARE PRESCRIBED OPIOIDS FOR PAIN: ? Never take opioids in greater amounts or more often than prescribed. ? Follow up with your primary health care provider. o Work together to create a plan on how to manage your pain. o Talk about ways to help manage your pain that don?t involve prescription opioids. o Talk about any and all concerns and side effects. ? Help prevent misuse and abuse o Never sell or share prescription opioids. o Never use another person?s prescription opioids. ? Store prescription opioids in a secure place and out of reach of others (this may include visitors, children, friends, and family). ? Safely dispose of unused prescription opioids: Find your community drug take-back program or your pharmacy mail-back program, or flush them down the toilet, following guidance from the Food and Drug Administration (www.fda.gov/Drugs/R esourcesForYou). ? Visit www.cdc.gov/drugover dose to learn about the risks of opioids abuse and overdose. ? If you believe you may be struggling with addiction, tell your health career based intervention coordinator and ask for guidance or call [facility] National Helpline at 4-729-551-MVCI. v Source: [place] Department of Health and Human Services/[place] (more content not included)... Normal [facility] ED Patient Summary [address] [address] Patient Discharge Instructions Person Information Name: JANE CHIRINOS Age: 62 Years Arrival Date: 06/08/2023 09:58:07 Discharge Diagnosis: Arm pain; Chest pain Primary Care Physician: LORI WOOD CNP Provider Information Primary Provider: Serafin James DO Advanced Security Team Lead:None The exam and treatment you received in the Emergency Department were for an urgent problem and are not intended as complete care. It is important that you follow up with a doctor, nurse practitioner, or physician?s ice cream freezer assistant for ongoing care. If your symptoms become worse or you do not improve as expected and you are unable to reach your usual health care provider, you should return to the Emergency Department. We are available 24 hours a day. JANE CHIRINOS has been given the following list of patient education materials, prescriptions and follow-up instructions: Follow-up Instructions: With: Address: When: Haider Mcgee [address] [place] [id number] Business (1) In 3 days 06/11/2023 In the event that this physician does not participate in your insurance network, please consult with your insurance company to find a nearby participating provider. Patient Education Materials: A MESSAGE TO ALL PATIENTS REGARDING OPIOIDS PRESCRIPTION OPIOIDS: WHAT YOU NEED TO KNOW Prescription opioids can be used to help relieve mfkoqgnl-sc-ezeuhr pain and are often prescribed following a surgery or injury, or for certain health conditions. These medications can be an important part of the treatment but also come with serious risks. It is important to work with your healthcare provider to make sure you are getting the safest, most effective care. WHAT ARE THE RISKS AND SIDE EFFECTS OF OPIOID USE? Prescription opioids carry serious risks of addiction and overdose, especially with prolonged use. An opioid overdose, often marked by slowed breathing, can cause sudden . The use of prescription opioids can have a number of side effects as well, even when taken as directed: ? Tolerance?meaning you might need to take more of the medication for the same pain relief ? Physical dependence?meaning you have symptoms of withdrawal when a medication is stopped ? Increased sensitivity to pain ? Constipation ? Nausea, vomiting, and dry mouth ? Sleepiness and dizziness ? Confusion ? Depression ? Low levels of testosterone that can result in lower sex drive, energy, and strength ? Itching and sweating RISKS ARE GREATER WITH: ? History of drug misuse, substance use disorder, or overdose ? Mental health conditions (such as depression or anxiety) ? Sleep apnea ? Older age (65 years and older) ? Avoid alcohol while taking prescription opioids. Also, unless specifically advised by your health care provider, medications to avoid include: ? Benzodiazepines (such as Xanax or Valium) ? Muscle relaxants (such as Soma or Flexeril) ? Hypnotics (such as Ambien or Lunesta) ? Other prescription opioids KNOW YOUR OPTIONS Talk to your health care provider about ways to manage your pain that don?t involve prescription opioids. Some of these options may actually work better and have fewer risks and side effects. Options may include: ? Pain relievers such as acetaminophen, ibuprofen, and naproxen ? Some medication that are also used for depression or seizures ? Physical therapy and exercise ? Cognitive behavioral therapy, a psychological, goal-directed approach, in which patients learn how to modify physical, behavioral, and emotional triggers of pain and stress. IF YOU ARE PRESCRIBED OPIOIDS FOR PAIN: ? Never take opioids in greater amounts or more often than prescribed. ? Follow up with your primary health care provider. o Work together to create a plan on how to manage your pain. o Talk about ways to help manage your pain that don?t involve prescription opioids. o Talk about any and all concerns and side effects. ? Help prevent misuse and abuse o Never sell or share prescription opioids. o Never use another person?s prescription opioids. ? Store prescription opioids in a secure place and out of reach of others (this may include visitors, children, friends, and family). ? Safely dispose of unused prescription opioids: Find your community drug take-back program or your pharmacy mail-back program, or flush them down the toilet, following guidance from the Food and Drug Administration (www.fda.gov/Drugs/R esourcesForYou). ? Visit www.cdc.gov/drugover dose to learn about the risks of opioids abuse and overdose. ? If you believe you may be struggling with addiction, tell your health career based intervention coordinator and ask for guidance or call [facility] National Helpline at 6-856-881-BTQC. h Source: [place] Department of Health and Human Services/[place] (more content not included)... Normal [facility] HEMATOLOGYOrdered By: SYSTEM SYSTEM on 06-08-2023 Basophils/100 WBC (Bld) 0.9 % Normal 0.0 - 2.0 % [facility] Basophils/Leukocytes Auto (Bld) [Pure # fraction] 0.1 E9/L Normal 0.0 - 0.2 E9/L [facility] Eosinophils/100 WBC (Bld) 3.1 % Normal 0.0 - 8.0 % [facility] Eosinophils/Leukocytes Auto (Bld) [Pure # fraction] 0.2 E9/L Normal 0.0 - 0.5 E9/L [facility] Lymphocytes/100 WBC (Bld) 30.9 % Normal 14.0 - 50.0 % [facility] Lymphocytes/Leukocytes Auto (Bld) [Pure # fraction] 2.0 E9/L Normal 1.0 - 4.0 E9/L [facility] Monocytes/100 WBC (Bld) 4.8 % Normal 4.0 - 14.0 % [facility] Monocytes/Leukocytes Auto (Bld) [Pure # fraction] 0.3 E9/L Normal 0.2 - 1.0 E9/L [facility] Neutrophils/100 WBC (Bld) 60.3 % Normal 36.0 - 75.0 % [facility] Neutrophils/Leukocytes Auto (Bld) [Pure # fraction] 3.8 E9/L Normal 2.0 - 7.5 E9/L [facility] HEMATOLOGYOrdered By: Agustina Briceño on 06-08-2023 Erythrocyte distribution width (RBC) [Ratio] 14.4 % High 10.9 - 14.2 % [facility] Hematocrit (Bld) [Volume fraction] 35.1 % Normal 34.0 - 46.0 % [facility] Hemoglobin (Bld) [Mass/Vol] 11.6 g/dL Low 12.0 - 16.0 gm/dL [facility] MCH (RBC) [Entitic mass] 26.4 pg Low 27.0 - 34.0 pg [facility] MCHC (RBC) [Mass/Vol] 33.0 g/dL Normal 31.4 - 36.0 gm/dL [facility] MCV (RBC) [Entitic vol] 79.9 fL Low 80.0 - 100.0 fL [facility] Platelet mean volume (Bld) [Entitic vol] 7.7 fL Normal 6.4 - 10.8 fL [facility] Platelets (Bld) [#/Vol] 251.0 E9/L Normal 150.0 - 500.0 E9/L [facility] RBC (Bld) [#/Vol] 4.4 E12/L Normal 4.3 - 5.9 E12/L [facility] WBC corrected for nucl RBC Auto (Bld) [#/Vol] 6.4 E9/L Normal 4.0 - 11.0 E9/L [facility] Hep Func Panelon 06-08-2023 Bilirubin.indirect [Mass or moles/Vol] UTC Abnormal 0.1-0.9 [facility] Comment on above: Result Comment: Resu lt verified by Discern Rule. Performed result UTC (Unable to Calculate) was sent as an Alpha code due the inability to calculate a valid numeric value. Performed By: #### 1 [id number] ####[facility] [id number] [place] [address] Albumin [Mass/Vol] 3.6 g/dL Normal 3.3-5.0 [facility] Comment on above: Performed By: #### 1 [id number], [id number], [id number], 8928606 ####[facility] [address] [place] [address] Albumin/Globulin (S) [Mass conc ratio] 1.1 Normal 1.1-2.2 [facility] Comment on above: Performed By: #### 1 1449379, 1574243, 0212922, 9904956, 36595409, 6101039, 36036819, 0302886 ####[address] [place] [address] ALP [Catalytic activity/Vol] 61 Int._Unit/L Normal 21-98 [facility] Comment on above: Performed By: #### 1 [id number], 3025134, 9552928, 9145493, 76814464, 7530748, 87112486, 1752046 ####[address] [address] ALT No additional P-5'-P [Catalytic activity/Vol] 21 Int._Unit/L Normal 6-46 [facility] Comment on above: Performed By: #### 1 8256232, 4303825, 2696034, 0001156, 82072860, 1644949, 26304966, 2285447 ####[address] [address] AST [Catalytic activity/Vol] 18 Int._Unit/L Normal 5-43 [facility] Comment on above: Performed By: #### 1 1183089, 5300277, 1421814, 4497154, 24044805, 1637282, 74240224, 5664432 ####[address] [place] [address] Bilirubin [Mass/Vol] 0.7 mg/dL Normal 0.0-1.1 [facility] Comment on above: Performed By: #### 1 9179230, 0341804, 0426026, 1047863, 83524625, 5226662, 26660535, 2471896 ####[address] [place] [address] Globulin (S) [Mass/Vol] 3.2 g/dL Normal 1.4-4.0 [facility] Comment on above: Performed By: #### 1 3772562, 5368018, 9629796, 6664218, 29260854, 7853306, 01290686, 1920488 ####[facility] [address] [place] [address] Protein [Mass/Vol] 6.8 g/dL Normal 6.0-7.8 [facility] Comment on above: Performed By: #### 1 2348088, 0932832, 8004415, 9894841, 52354877, 1663742, 70905252, 1094519 ####[facility] [address] [place] [address] Bilirubin.direct [Mass/Vol] mg/dL Normal 0.1-0.4 [facility] Comment on above: Performed By: #### 1 3976403, 2237834, 6043647, 0844267, 68697519, 0265656, 24670847, 1043487 ####[address] [place] [address] Bilirubin.indirect [Mass or moles/Vol] UTC Abnormal 0.1-0.9 [facility] Comment on above: Result Comment: Resu lt verified by Discern Rule. Performed result UTC (Unable to Calculate) was sent as an Alpha code due the inability to calculate a valid numeric value. Performed By: #### 1 6121558, 1684677, 7484533, 4143582, 60675555, 7301680, 39297864, 8360146 ####[facility] [address] [place] [address] Albumin [Mass/Vol] 3.6 g/dL Normal 3.3-5.0 [facility] Comment on above: Performed By: #### 1 9461856, 0403362, 1897331, 8614476, 49281696, 9681451, 60257228, 7708692 ####[address] [place] [address] Albumin/Globulin (S) [Mass conc ratio] 1.1 Normal 1.1-2.2 [facility] Comment on above: Performed By: #### 1 3715440, 1069642, 8187420, 8264272, 92707740, 9379219, 47766920, 0725083 ####[address] [place] [address] ALP [Catalytic activity/Vol] 61 Int._Unit/L Normal 21-98 [facility] Comment on above: Performed By: #### 1 1706749, 4426779, 5419740, 9479195, 89672994, 3130113, 97207962, 6143500 ####[address] [place] [address] ALT No additional P-5'-P [Catalytic activity/Vol] 21 Int._Unit/L Normal 6-46 [facility] Comment on above: Performed By: #### 1 2975891, 8598431, 7760068, 4071293, 81516956, 0772401, 29618105, 9425531 ####[address] [place] [address] AST [Catalytic activity/Vol] 18 Int._Unit/L Normal 5-43 [facility] Comment on above: Performed By: #### 1 1382674, 9824217, 3002167, 0360055, 26364492, 0056340, 88074009, 0423763 ####[address] [place] [address] Bilirubin [Mass/Vol] 0.7 mg/dL Normal 0.0-1.1 [facility] Comment on above: Performed By: #### 1 9346348, 7383664, 9566490, 5908908, 47413581, 2601652, 20924807, 1821027 ####[address] [place] [address] Globulin (S) [Mass/Vol] 3.2 g/dL Normal 1.4-4.0 [facility] Comment on above: Performed By: #### 1 1934105, 4898513, 1834925, 4223569, 99057258, 0294955, 48094217, 5869611 ####[address] [place] [address] Protein [Mass/Vol] 6.8 g/dL Normal 6.0-7.8 [facility] Comment on above: Performed By: #### 1 9516226, 5815714, 3993112, 7585674, 51445615, 1433100, 77267767, 0685469 ####[facility] [address] [place] [address] Bilirubin.direct [Mass/Vol] mg/dL Normal 0.1-0.4 [facility] Comment on above: Performed By: #### 1 0344871, 6123130, 8546761, 2103707, 68985286, 7877961, 48338327, 6170459 ####[address] [place] [address] Lipase Levelon 06-08-2023 Lipase [Catalytic activity/Vol] 45 U/L Normal [facility] Comment on above: Performed By: #### 1 5166490, 9986631, 9844726, 9543558, 22490630, 0474710, 00360780, 5462168 ####[address] [place] [address] Lipase [Catalytic activity/Vol] 45 U/L Normal [facility] Comment on above: Performed By: #### 1 7662793, 6988456, 3170086, 0821458, 57753343, 3325240, 76317583, 3280008 ####[facility] [address] [place] [address] Monitor Recordon 06-08-2023 Monitor Record [id number] 6#1.00TIFF Normal [facility] Monitor Record [id number] 6#1.00TIFF Normal [facility] PT & PTTon 06-08-2023 aPTT Coag (PPP) [Time] 33.4 second(s) Normal 25.1-36.5 [facility] Comment on above: Result Comment: Para meter 15 days - 4 weeks 1 - 5 months 6 - 11 months 1 - 5 years 6 - 10 years 11 - 17 years PTT Mean: 35.4 (27.6-45.6) Mean: 33.5 (24.8-40.7) Mean: 32.4 (25.1-40.7) Mean: 31.6 (24.0-39.2) Mean: 31.6 (26.9-38.7) Mean: 31.0 (24.6-38.4) Pediatric Reference ranges were obtained from a study by Dinh Archer et al. prepared from 1437 samples obtained at 7 different centers using the same coagulation reagent and instrumentation [place] [facility] Currently there are no coagulation studies available worldwide for children to 14 days, and no normal ranges. Heparin therapeutic range (represented by Anti-Factor Xa activity of 0.2 - 0.4 U/mL) corresponds to PTT of 56.6 - 109.0 sec. Performed By: #### 1 3689627, 2683405, 3922258, 7497486, 97800832, 6297041, 48431984, 0725597 ####[facility] [address] [place] [address] INR Coag (PPP) [Relative time] 0.9 {INR} Invalid Interpretation Code [facility] Comment on above: Result Comment: INR results are specifically intended to assess patients stabilized on long-term Anticoagulation therapy suggested INR?s ?Less Intensive Anticoagulation? 2.0 ? 3.0 Conventional Range 3.0 ? 4.5 Performed By: #### 1 4177536, 9764527, 7931859, 4792685, 56419110, 7271651, 45972066, 8246637 ####[facility] [address] [place] [address] PT Coag (PPP) [Time] 10.3 second(s) Normal 9.4-12.5 [facility] Comment on above: Result Comment: 15 d ays - 4 weeks 1 - 5 months 6 -11 months 1- 5 years 6-10 years 11 -17 years Mean: 11.2 (9.5-12.6) Mean: 11.0 (9.7-12.8) Mean: 11.0 (9.8-13.0) Mean: 11.3 (9.9-13.4) Mean: 11.7 (10.0-14.6) Mean: 11.8 (10.0 - 14.1) Pediatric Reference ranges were obtained from a study by hector Samuels prepared from 1437 samples obtained at 7 different centers using the same coagulation reagent and instrumentation [place] [facility] Currently there are no coagulation studies available worldwide for children to 14 days, and no normal ranges. Performed By: #### 1 3536632, 9539739, 8217616, 9255885, 70287070, 5298812, 67906166, 9003176 ####[facility] [address] [place] [address] aPTT Coag (PPP) [Time] 33.4 second(s) Normal 25.1-36.5 [facility] Comment on above: Result Comment: Para meter 15 days - 4 weeks 1 - 5 months 6 - 11 months 1 - 5 years 6 - 10 years 11 - 17 years PTT Mean: 35.4 (27.6-45.6) Mean: 33.5 (24.8-40.7) Mean: 32.4 (25.1-40.7) Mean: 31.6 (24.0-39.2) Mean: 31.6 (26.9-38.7) Mean: 31.0 (24.6-38.4) Pediatric Reference ranges were obtained from a study by grisel Samuels alNelson prepared from 1437 samples obtained at 7 different centers using the same coagulation reagent and instrumentation [place] [facility] [place] Currently there are no coagulation studies available worldwide for children to 14 days, and no normal ranges. Heparin therapeutic range (represented by Anti-Factor Xa activity of 0.2 - 0.4 U/mL) corresponds to PTT of 56.6 - 109.0 sec. Performed By: #### 1 7197049, 2163084, 8532732, 3999238, 09899731, 4676895, 42628905, 9711332 ####[facility] [address] [place] [address] INR Coag (PPP) [Relative time] 0.9 {INR} Invalid Interpretation Code [facility] Comment on above: Result Comment: INR results are specifically intended to assess patients stabilized on long-term Anticoagulation therapy suggested INR?s ?Less Intensive Anticoagulation? 2.0 ? 3.0 Conventional Range 3.0 ? 4.5 Performed By: #### 1 2903984, 0069028, 5691705, 8705967, 01773347, 7566724, 52360469, 3513719 ####[facility] [address] [place] [address] PT Coag (PPP) [Time] 10.3 second(s) Normal 9.4-12.5 [facility] Comment on above: Result Comment: 15 d ays - 4 weeks 1 - 5 months 6 -11 months 1- 5 years 6-10 years 11 -17 years Mean: 11.2 (9.5-12.6) Mean: 11.0 (9.7-12.8) Mean: 11.0 (9.8-13.0) Mean: 11.3 (9.9-13.4) Mean: 11.7 (10.0-14.6) Mean: 11.8 (10.0 - 14.1) Pediatric Reference ranges were obtained from a study by Dinh Archer et al. prepared from 1437 samples obtained at 7 different centers using the same coagulation reagent and instrumentation [place] [facility]. Currently there are no coagulation studies available worldwide for children to 14 days, and no normal ranges. Performed By: #### 1 7361567, 4414129, 0477732, 9770287, 06770705, 1056206, 39897040, 3721409 ####[facility] [address] [place] [address] Troponin 0 Hr.on 06-08-2023 Troponin I.cardiac [Mass/Vol] 2.90 pg/mL Low 10.10-27.10 [facility] Comment on above: Result Comment: The 95% CI (Confidence Interval) PPV (Positive Predictive Value) for myocardial infarction in females is 38 pg/mL, in males 51 pg/mL. The results should be used in conjunction with clinical conditions of myocardial infarction. (Access High Sensitivity Troponin I Instructions For Use, [place], February 2018) Performed By: #### 1 3639894, 0281469, 8178636, 7133153, 41440770, 7699945, 66908178, 9181174 ####[facility] [address] [place] [address] Troponin I.cardiac [Mass/Vol] 2.90 pg/mL Low 10.10-27.10 [facility] Comment on above: Result Comment: The 95% CI (Confidence Interval) PPV (Positive Predictive Value) for myocardial infarction in females is 38 pg/mL, in males 51 pg/mL. The results should be used in conjunction with clinical conditions of myocardial infarction. (Access High Sensitivity Troponin I Instructions For Use, [employer], February 2018) Performed By: #### 1 1761997, 8087445, 3432651, 4594658, 73928732, 6969154, 58231400, 8433030 ####[address] [place] [address] Troponin 3 Hr.on 06-08-2023 Troponin I.cardiac [Mass/Vol] 2.70 pg/mL Low 10.10-27.10 [facility] Comment on above: Result Comment: The 95% CI (Confidence Interval) PPV (Positive Predictive Value) for myocardial infarction in females is 38 pg/mL, in males 51 pg/mL. The results should be used in conjunction with clinical conditions of myocardial infarction. (Access High Sensitivity Troponin I Instructions For Use, [employer], February 2018) Performed By: #### 1 [id number] ####[address] [place] [address] Troponin I.cardiac [Mass/Vol] 2.70 pg/mL Low 10.10-27.10 [facility] Comment on above: Result Comment: The 95% CI (Confidence Interval) PPV (Positive Predictive Value) for myocardial infarction in females is 38 pg/mL, in males 51 pg/mL. The results should be used in conjunction with clinical conditions of myocardial infarction. (Access High Sensitivity Troponin I Instructions For Use, [employer] 2018) Performed By: #### 1 [id number] ####[address] [place] [address] XR Chest 2 Viewson 3 XR Chest 2 Views Exam Date/Time: 06/08/2023 11:41 EST Reason for Exam: Chest pain Report IMPRESSION: No acute radiographic abnormality. EXAMINATION: XR Chest 2 Views Clinical History: Chest pain Comparison: None RESULT: No focal consolidation. No pleural effusion. No pneumothorax. Normal cardiomediastinal silhouette. No acute osseous findings. Multiple surgical clips especially projecting over both lung apices with apparent removal of the first ribs bilaterally. Ordering Provider: Serafin James FINAL REPORT Dictated: 06/08/2023 12:15 pm Herman Brito MD Signed (Electronic Signature): 06/08/2023 12:15 pm Signed by: Herman Brito MD Transcribed by: NAINA Technologist: KRISTY Technical Comments Radiation Dose: Ka,r in mGy = na DAP = na Normal [facility] XR Chest 2 Views Exam Date/Time: 06/08/2023 11:41 EST Reason for Exam: Chest pain Report IMPRESSION: No acute radiographic abnormality. EXAMINATION: XR Chest 2 Views Clinical History: Chest pain Comparison: None RESULT: No focal consolidation. No pleural effusion. No pneumothorax. Normal cardiomediastinal silhouette. No acute osseous findings. Multiple surgical clips especially projecting over both lung apices with apparent removal of the first ribs bilaterally. Ordering Provider: Serafin James FINAL REPORT Dictated: 06/08/2023 12:15 pm Herman Brito MD Signed (Electronic Signature): 06/08/2023 12:15 pm Signed by: Herman Brito MD Transcribed by: NAINA Technologist: KRISTY Technical Comments Radiation Dose: Ka,r in mGy = na DAP = na Normal [facility] eGFRon 06-08-2023 GFR/1.73 sq M.predicted among non-blacks MDRD (S/P/Bld) [Vol rate/Area] 72 mL/min/1.73 m2 Normal >=59 [facility] Comment on above: Order Comment: Order added by Discern Expert. Result Comment: Sales Marketing Manager aliya kidney disease could be indicated at eGFR's of less than 60 mL/min/1.73m2. Kidney failure is indicated at less than 15 mL/min/1.73m2. Performed By: #### 1 [id number], 1080566, 7066580, 8500829, 09956202, 9623061, 01132879, 2928220 ####[facility] [address] [place] [address] GFR/1.73 sq M.predicted among non-blacks MDRD (S/P/Bld) [Vol rate/Area] 72 mL/min/1.73 m2 Normal >=59 [facility] Comment on above: Order Comment: Order added by Discern Expert. Result Comment: Sales Marketing Manager aliya kidney disease could be indicated at eGFR's of less than 60 mL/min/1.73m2. Kidney failure is indicated at less than 15 mL/min/1.73m2. Performed By: #### 1 9360907, 4999993, 2457964, 0379481, 88502621, 7939927, 12990919, 5043131 ####[facility] [address] [place] [address] Heart and Vascular Office/Cl inic Noteon 06-02-2023 Heart and Vascular Office/Clinic Note Chief Complaint here to establish care History of Present Illness Jane Chirinos is a 62-year-old female who presents today for an evaluation. She is accompanied by an adult male. The patient reports experiencing heart palpitations and was evaluated by Lori Whalen CNP, who ordered a 7-day Holter monitor test. The results of this test were normal. She also mentions having a heart murmur, but it has not been evaluated before. The palpitations occur intermittently throughout the day and are rated at 40 to 50 percent intensity. They do not cause her to have breathing difficulties. During the period she wore the Holter monitor, she did not experience any symptomatic events and did not feel any discomfort from the device. She was initially concerned about the possibility of atrial fibrillation when the palpitations began. Her family history includes her father having had three strokes due to blocked carotid arteries. She denies having any heart problems and has no history of hypertension. Jane prefers not to undergo a 30-day Holter monitor test. She does not experience shortness of breath or chest pain. She tries to maintain an active lifestyle by walking daily, often with her dog. However, she has been experiencing significant pain between her shoulders. Review of Systems Constitutional: no fever, no sweats, no weakness Skin: no rash, no lesions, no bruising/petechiae ENMT: no sore throat, no congestion, no hoarseness Respiratory: no shortness of breath, no cough, no orthopnea, no wheezing Cardiovascular: no chest pain, Positive for palpitations, no edema Gastrointestinal: no nausea, no vomiting, no diarrhea, no GI bleeding Genitourinary: no anuria/oliguria no hematuria Musculoskeletal: no back pain, no trauma Neurologic: no headache, no dizziness, no numbness, no weakness Psychiatric: no sleeping problems, no irritability, no anxiety/depression. Heme/Lymph: no bleeding tendency, no bruising tendency Allergy/Immunologic: no recurrent infections, no impaired immunity Additional ROS info: Except as noted in the above Review of Systems and in the History of Present Illness all other systems have been reviewed and are negative or noncontributory Physical Exam Vitals & Measurements HR: 72(Peripheral) BP: 140/82 SpO2: 96% HT: 66 in HT: 168 cm WT: 103.8 kg WT: 228.36 lb BMI: 36.78 General: alert, no acute distress Skin: warm, dry intact Head: atraumatic, normocephalic Neck: trachea midline, no JVD, no bruit Eye: normal conjunctiva, sclera clear ENMT: oral mucosa moist Cardiovascular: regular rate and rhythm, no murmur, normal peripheral perfusion Respiratory: lungs CTA, respirations non labored Chest wall: no deformity. Gastrointestinal: soft, non-distended, no tenderness, no guarding. Back: no tenderness, normal ROM, normal alignment. Extremities: no edema, no deformity, no trauma Neurological: oriented x 4, LOC appropriate for age, sensation equal & normal bilaterally, speech normal Psychiatric: cooperative, affect appropriate for age, normal judgement, normal psychiatric thoughts. Assessment/Plan 1. Palpitations. I will order an exercise EKG to assess for a blockage. I will order an echocardiogram to evaluate the murmur and place a loop recorder on her. Follow up in 6 weeks. Fluttering heart (I49.8: Other specified cardiac arrhythmias) Portions of this record may have been created with voice recognition artificial intelligence software, specifically [employer], [employer] and or [employer]. Substitutions may have occurred due to the inherent limitations of voice recognition and artificial intelligence software. ATTESTATION: Documentation services were performed after patient or guardian consented to allow [employer] to record this visit. CINTHYA oracle specialist and provider reviewed before signing. CINTHYA: Katey Oreilly. Follow-up No qualifying data available Problem List/Past Medical History Ongoing No qualifying data Historical Acquired hypothyroidism Anxiety Bipolar Bronchitis Morbid obesity Type 2 diabetes mellitus Vitamin D deficiency Procedure/Surgical History Angioplasty, Bilateral dissection tonsillectomy, section, Cholecystectomy, Colonoscopy, EGD (esophagogastroduode noscopic) electrohydraulic lithotripsy of bezoar in stomach, History of hernia repair. Medications buPROPion 150 mg ER Tab citalopram 20 mg Tab Lamictal 150 mg Tab meloxicam 15 mg Tab metformin 1000 mg Tab omeprazole 10 mg Cap-EC pravastatin 40 mg Tab Tylenol 8 HR Arthritis Pain Allergies Adhesive Bandage (Unknown) Social History Tobacco Never (less than 100 in lifetime) Tobacco Use:., 05/09/2023 Family History Depression: Mother. Heart disease: Father. Normal [facility] Comment on above: Result Comment: Elec tronically Signed By: Everardo CALVERT, Haider Valentino\.br\Date and Time Signed: 06/02/23 20:19 EST\.br\Electronically Co-Signed By: Katey Oreilly\.br\Date and Time Co-Signed: 05/09/23 17:11 EDT\.br\Electronically Co-Signed By: Katey Oreilly\.br\Date and Time Co-Signed: 05/09/23 17:13 EDT Heart and Vascular Office/Clinic Note Chief Complaint here to establish care History of Present Illness Jane Chirinos is a 62-year-old female who presents today for an evaluation. She is accompanied by an adult male. The patient reports experiencing heart palpitations and was evaluated by Lori Whalen CNP, who ordered a 7-day Holter monitor test. The results of this test were normal. She also mentions having a heart murmur, but it has not been evaluated before. The palpitations occur intermittently throughout the day and are rated at 40 to 50 percent intensity. They do not cause her to have breathing difficulties. During the period she wore the Holter monitor, she did not experience any symptomatic events and did not feel any discomfort from the device. She was initially concerned about the possibility of atrial fibrillation when the palpitations began. Her family history includes her father having had three strokes due to blocked carotid arteries. She denies having any heart problems and has no history of hypertension. Jane prefers not to undergo a 30-day Holter monitor test. She does not experience shortness of breath or chest pain. She tries to maintain an active lifestyle by walking daily, often with her dog. However, she has been experiencing significant pain between her shoulders. Review of Systems Constitutional: no fever, no sweats, no weakness Skin: no rash, no lesions, no bruising/petechiae ENMT: no sore throat, no congestion, no hoarseness Respiratory: no shortness of breath, no cough, no orthopnea, no wheezing Cardiovascular: no chest pain, Positive for palpitations, no edema Gastrointestinal: no nausea, no vomiting, no diarrhea, no GI bleeding Genitourinary: no anuria/oliguria no hematuria Musculoskeletal: no back pain, no trauma Neurologic: no headache, no dizziness, no numbness, no weakness Psychiatric: no sleeping problems, no irritability, no anxiety/depression. Heme/Lymph: no bleeding tendency, no bruising tendency Allergy/Immunologic: no recurrent infections, no impaired immunity Additional ROS info: Except as noted in the above Review of Systems and in the History of Present Illness all other systems have been reviewed and are negative or noncontributory Physical Exam Vitals & Measurements HR: 72(Peripheral) BP: 140/82 SpO2: 96% HT: 66 in HT: 168 cm WT: 103.8 kg WT: 228.36 lb BMI: 36.78 General: alert, no acute distress Skin: warm, dry intact Head: atraumatic, normocephalic Neck: trachea midline, no JVD, no bruit Eye: normal conjunctiva, sclera clear ENMT: oral mucosa moist Cardiovascular: regular rate and rhythm, no murmur, normal peripheral perfusion Respiratory: lungs CTA, respirations non labored Chest wall: no deformity. Gastrointestinal: soft, non-distended, no tenderness, no guarding. Back: no tenderness, normal ROM, normal alignment. Extremities: no edema, no deformity, no trauma Neurological: oriented x 4, LOC appropriate for age, sensation equal & normal bilaterally, speech normal Psychiatric: cooperative, affect appropriate for age, normal judgement, normal psychiatric thoughts. Assessment/Plan 1. Palpitations. I will order an exercise EKG to assess for a blockage. I will order an echocardiogram to evaluate the murmur and place a loop recorder on her. Follow up in 6 weeks. Fluttering heart (I49.8: Other specified cardiac arrhythmias) Portions of this record may have been created with voice recognition artificial intelligence software, specifically [employer], [employer] and or [employer]. Substitutions may have occurred due to the inherent limitations of voice recognition and artificial intelligence software. ATTESTATION: Documentation services were performed after patient or guardian consented to allow [employer] to record this visit. CINTHYA oracle specialist and provider reviewed before signing. CINTHYA: Katey Oreilly. Follow-up No qualifying data available Problem List/Past Medical History Ongoing No qualifying data Historical Acquired hypothyroidism Anxiety Bipolar Bronchitis Morbid obesity Type 2 diabetes mellitus Vitamin D deficiency Procedure/Surgical History Angioplasty, Bilateral dissection tonsillectomy, section, Cholecystectomy, Colonoscopy, EGD (esophagogastroduode noscopic) electrohydraulic lithotripsy of bezoar in stomach, History of hernia repair. Medications buPROPion 150 mg ER Tab citalopram 20 mg Tab Lamictal 150 mg Tab meloxicam 15 mg Tab metformin 1000 mg Tab omeprazole 10 mg Cap-EC pravastatin 40 mg Tab Tylenol 8 HR Arthritis Pain Allergies Adhesive Bandage (Unknown) Social History Tobacco Never (less than 100 in lifetime) Tobacco Use:., 05/09/2023 Family History Depression: Mother. Heart disease: Father. Normal [facility] Comment on above: Result Comment: Elec tronically Signed By: Haider Mcgee MD\.br\Date and Time Signed: 06/02/23 20:19 EST\.br\Electronically Co-Signed By: Katey Oreilly\.br\Date and Time Co-Signed: 05/09/23 17:11 EDT\.br\Electronically Co-Signed By: Katey Oreilly\.br\Date and Time Co-Signed: 05/09/23 17:13 EDT Physician Orderon 05-22-2023 Physician Order [id number] 08#1.00TIFF [facility] Physician Order [id number] 08#1.00TIFF Normal [facility] Physician Orderon 05-17-2023 Physician Order [id number]# 1.00TIFF [facility] Physician Order [id number]# 1.00TIFF Normal [facility] Insurance Correspondenceon 1 07-10-2022 Insurance Correspondence [id number] 8#1.00TIFF [facility] Insurance Correspondence [id number] 8#1.00TIFF [facility] Insurance Correspondence [id number] 4#1.00TIFF [facility] Insurance Correspondence [id number] 4#1.00TIFF [facility] Referrals Officeon Referrals Office [id number] 59#1.00TIFF [facility] Event Monitoron 03-21-2023 Event Monitor [id number] 1#1.00CD:127 [facility] Consent for Treatmenton 02-06 Consent for Treatment [id number] #1.00CD:127 [facility] Physician Orderon 03-01-2023 Physician Order [id number] #1.00CD:127 [facility] MG MAMM SCREEN 3D SABINO CADon 04-04-2022 MG MAMM SCREEN 3D SABINO CAD Patient: JANE CHIRINOSNelson Exam Date: 04/04/2022 : 1960 Gender:F Ordering : DR PA NIXON . Admission #: [id number] Family : Order #: [id number] CLICK HERE TO VIEW EXAM RADIOLOGY REPORT PROCEDURE: MAMMOGRAM SCREENING 3D BILATERAL CAD COMPARISON: MG MAMM SCREEN 3D SABINO CAD, 10/24/2020. INDICATIONS: Screening mammography Calculator Name NCI Breast Cancer Risk Assessment Tool 5 Year Breast Cancer Risk 1.30% Lifetime Breast Cancer Risk 6.40% Personal Breast Cancer No Personal Ovarian Cancer No Treatments None Family Cancers None LOCATION: [facility] BREAST COMPOSITION: Heterogeneously dense,which may obscure small masses. FINDINGS: DIAGNOSTIC CATEGORY 2--BENIGN FINDING. NO CHANGE FROM COMPARISON. Scattered benign-appearing calcifications are present. Scattered benign-appearing lymph nodes are present. RIGHT BREAST: No significant suspicious finding. LEFT BREAST: No significant suspicious finding. RECOMMENDATIONS: ROUTINE MAMMOGRAM AND CLINICAL EVALUATION IN 12 MONTHS. PLEASE NOTE: A NORMAL MAMMOGRAM DOES NOT EXCLUDE THE POSSIBILITY OF BREAST CANCER. A CLINICALLY SUSPICIOUS PALPABLE LUMP SHOULD BE BIOPSIED. Dictated by: Yoselin Antony MD on 04/04/2022 at 08:53 Approved by: Yoselin Antony MD on 04/04/2022 at 08:[address] [facility] Complete Blood Count with Au to Diffon 09-26-2021 Basophils (Bld) [#/Vol] 0.07 10*3/uL Normal 0.00-0.20 [facility] Comment on above: Performed By: #### T SH reflex FT4, LIPD, CMP, CBCAD #### [facility] [address], [place] [id number] Basophils/100 WBC (Bld) 1.1 % Normal [facility] Comment on above: Performed By: #### T SH reflex FT4, LIPD, CMP, CBCAD #### [facility] [address] [facility] [place] [id number] Eosinophils (Bld) [#/Vol] 0.26 10*3/uL Normal 0.02-0.50 [facility] Comment on above: Performed By: #### T SH reflex FT4, LIPD, CMP, CBCAD #### [facility] [address], [place] [id number] Eosinophils/100 WBC (Bld) 4.3 % Normal [facility] Comment on above: Performed By: #### T SH reflex FT4, LIPD, CMP, CBCAD #### [facility] [address], [place] [id number] Erythrocyte distribution width (RBC) [Ratio] 13.9 % Normal 11.0-15.0 [facility] Comment on above: Performed By: #### T SH reflex FT4, LIPD, CMP, CBCAD #### [facility] [address], [place] [id number] Hematocrit (Bld) [Volume fraction] 38.3 % Normal 35.0-47.0 [facility] Comment on above: Performed By: #### T SH reflex FT4, LIPD, CMP, CBCAD #### [facility] [address], [place] [id number] Hemoglobin (Bld) [Mass/Vol] 12.0 g/dL Normal 11.6-15.5 [facility] Comment on above: Performed By: #### T SH reflex FT4, LIPD, CMP, CBCAD #### [facility] [address], [place] [id number] Lymphocytes (Bld) [#/Vol] 1.9 10*3/uL Normal 0.9-3.9 [facility] Comment on above: Performed By: #### T SH reflex FT4, LIPD, CMP, CBCAD #### [facility] [address], [place] [id number] Lymphocytes/100 WBC (Bld) 30.3 % Normal [facility] Comment on above: Performed By: #### T SH reflex FT4, LIPD, CMP, CBCAD #### [facility] [address], [place] [id number] MCH (RBC) [Entitic mass] 27.0 pg Normal 27.0-33.0 [facility] Comment on above: Performed By: #### T SH reflex FT4, LIPD, CMP, CBCAD #### [facility] [address], [place] [id number] MCHC (RBC) [Mass/Vol] 31.3 g/dL Low 32.0-36.0 [facility] Comment on above: Performed By: #### T SH reflex FT4, LIPD, CMP, CBCAD #### [facility] [address], [place] [id number] MCV (RBC) [Entitic vol] 86 fL Normal 80-100 [facility] Comment on above: Performed By: #### T SH reflex FT4, LIPD, CMP, CBCAD #### [facility] [address], [place] [id number] Monocytes (Bld) [#/Vol] 0.4 10*3/uL Normal 0.2-0.9 [facility] Comment on above: Performed By: #### T SH reflex FT4, LIPD, CMP, CBCAD #### [facility] [address], [place] [id number] Monocytes/100 WBC (Bld) 6.2 % Normal [facility] Comment on above: Performed By: #### T SH reflex FT4, LIPD, CMP, CBCAD #### [facility] [address], [place] [id number] Neutrophils (Bld) [#/Vol] 3.5 10*3/uL Normal 1.5-7.8 [facility] Comment on above: Performed By: #### T SH reflex FT4, LIPD, CMP, CBCAD #### [facility] [address], [place] [id number] Neutrophils/100 WBC (Bld) 57.8 % Normal [facility] Comment on above: Performed By: #### T SH reflex FT4, LIPD, CMP, CBCAD #### [facility] [address], [place] [id number] Platelet mean volume (Bld) [Entitic vol] 10.10 fL Normal 7.50-12.50 [facility] Comment on above: Performed By: #### T SH reflex FT4, LIPD, CMP, CBCAD #### [facility] [address], [place] [id number] Platelets (Bld) [#/Vol] 296 10*3/uL Normal 140-400 [facility] Comment on above: Performed By: #### T SH reflex FT4, LIPD, CMP, CBCAD #### [facility] [address], [place] [id number] RBC (Bld) [#/Vol] 4.44 10*6/uL Normal 3.90-5.20 [facility] Specialist Comment on above: Performed By: #### T SH reflex FT4, LIPD, CMP, CBCAD #### [facility] [address], [place] [id number] RDW-SD 43.2 fL Normal 37.0-50.0 [facility] Comment on above: Performed By: #### T SH reflex FT4, LIPD, CMP, CBCAD #### [facility] [address], [place] [id number] WBC (Bld) [#/Vol] 6.1 10*3/uL Normal 3.8-11.0 [facility] Comment on above: Performed By: #### T SH reflex FT4, LIPD, CMP, CBCAD #### [facility] [address], [place] [id number] [facility] 09-26-2021 Albumin [Mass/Vol] 4.7 g/dL Normal 3.6-5.1 [facility] Comment on above: Performed By: #### T SH reflex FT4, LIPD, CMP, CBCAD #### [facility] [address], [place] [id number] Albumin/Globulin [Mass ratio] 2.5 {ratio} Normal 1.0-2.5 [facility] Comment on above: Performed By: #### T SH reflex FT4, LIPD, CMP, CBCAD #### [facility] [address], [place] [id number] ALP [Catalytic activity/Vol] 76 U/L Normal 35-119 [facility] Comment on above: Performed By: #### T SH reflex FT4, LIPD, CMP, CBCAD #### [facility] [address], [place] [id number] ALT [Catalytic activity/Vol] 20 U/L Normal 6-33 [facility] Comment on above: Result Comment: 06/07 Female reference range changed. Performed By: #### T SH reflex FT4, LIPD, CMP, CBCAD #### [facility] [address], [place] [id number] Anion gap [Moles/Vol] 18 mmol/L Normal 12-20 [facility] Comment on above: Result Comment: Inga ctive 07/13/2019 reference range changed. Performed By: #### T SH reflex FT4, LIPD, CMP, CBCAD #### [facility] [address], [place] [id number] AST [Catalytic activity/Vol] 16 U/L Normal 9-34 [facility] Comment on above: Performed By: #### T SH reflex FT4, LIPD, CMP, CBCAD #### [facility] [address], [place] [id number] BUN/CREA 17 Ratio Normal 6-22 [facility] Comment on above: Performed By: #### T SH reflex FT4, LIPD, CMP, CBCAD #### [facility] [address], [place] [id number] Calcium [Mass/Vol] 9.6 mg/dL Normal 8.6-10.2 [facility] Comment on above: Performed By: #### T SH reflex FT4, LIPD, CMP, CBCAD #### [facility] [address], [place] [id number] Chloride [Moles/Vol] 104 mmol/L Normal 98-107 [facility] Comment on above: Performed By: #### T SH reflex FT4, LIPD, CMP, CBCAD #### [facility] [address], [place] [id number] CO2 [Moles/Vol] 24 mmol/L Normal 20-31 [facility] Comment on above: Performed By: #### T SH reflex FT4, LIPD, CMP, CBCAD #### [facility] [address], [place] [id number] Creatinine [Mass/Vol] 1.1 mg/dL Normal 0.6-1.4 [facility] Comment on above: Performed By: #### T SH reflex FT4, LIPD, CMP, CBCAD #### [facility] [address], [place] [id number] eGFRAA 60 mL/min/1.73m2 Low >60 [facility] Comment on above: Performed By: #### T SH reflex FT4, LIPD, CMP, CBCAD #### [facility] [address], [place] [id number] eGFRNAA 50 mL/min/1.73m2 Low >60 [facility] Comment on above: Performed By: #### T SH reflex FT4, LIPD, CMP, CBCAD #### [facility] [address], [place] [id number] Globulin (S) [Mass/Vol] 1.9 g/dL Normal 1.9-3.7 [facility] Comment on above: Performed By: #### T SH reflex FT4, LIPD, CMP, CBCAD #### [facility] [address], [place] [id number] Glucose [Mass/Vol] 129 mg/dL High 65-99 [facility] Comment on above: Result Comment: For FASTING Glucose --- ADA reference ranges: Normal 65-99 mg/dl Prediabetes 100-125 Diabetes >/= 126 Performed By: #### T SH reflex FT4, LIPD, CMP, CBCAD #### [facility] [address], [place] [id number] Potassium [Moles/Vol] 4.6 mmol/L Normal 3.5-5.5 [facility] Specialist Comment on above: Performed By: #### T SH reflex FT4, LIPD, CMP, CBCAD #### [facility] [address], [place] [id number] Protein [Mass/Vol] 6.6 g/dL Normal 6.1-8.1 [facility] Comment on above: Performed By: #### T SH reflex FT4, LIPD, CMP, CBCAD #### [facility] [address], [place] [id number] Sodium [Moles/Vol] 141 mmol/L Normal 135-146 [facility] Comment on above: Performed By: #### T SH reflex FT4, LIPD, CMP, CBCAD #### [facility] [address], [place] [id number] TBIL <0.3 Normal [facility] Special[facility] Comment on above: Performed By: #### T SH reflex FT4, LIPD, CMP, CBCAD #### [facility] [address], [place] [id number] Urea nitrogen [Mass/Vol] 19 mg/dL Normal 7-25 [facility] Comment on above: Performed By: #### T SH reflex FT4, LIPD, CMP, CBCAD #### [facility] [address], [place] [id number] Lipid Panelon 09-26-2021 Cholesterol [Mass/Vol] 249 mg/dL High 125-200 [facility] Comment on above: Result Comment: Low risk < 200mg/dL Borderline risk 201-239 mg/dl High risk > or equal to 240 Performed By: #### T SH reflex FT4, LIPD, CMP, CBCAD #### [facility] [address], [place] [id number] Cholesterol in HDL [Mass/Vol] 52 mg/dL Normal >40 [facility] Comment on above: Result Comment: High Cardiovascular Risk HDL <40 mg/dL Low Cardiovascular Risk HDL > or equal to 60 mg/dl Performed By: #### T SH reflex FT4, LIPD, CMP, CBCAD #### [facility] [address], [place] [id number] Cholesterol in LDL [Mass/Vol] 145 mg/dL Normal [facility] Comment on above: Result Comment: LDL ATP III CLASSIFICATION LDL less than 100 mg/dl Optimal LDL 100-129 mg/dl Near or above optimal LDL 130-159 Borderline high LDL 160-189 High LDL greater than 189 mg/dl Very High Performed By: #### T SH reflex FT4, LIPD, CMP, CBCAD #### [facility] [address], [place] [id number] Cholesterol in VLDL [Mass/Vol] 52 mg/dL Normal [facility] Comment on above: Performed By: #### T SH reflex FT4, LIPD, CMP, CBCAD #### [facility] [address], [place] [id number] Cholesterol.total/Chol esterol in HDL [Mass ratio] 5 {ratio} Normal [facility] Comment on above: Performed By: #### T SH reflex FT4, LIPD, CMP, CBCAD #### [facility] [address], [place] [id number] Triglyceride [Mass/Vol] 259 mg/dL High 30-150 [facility] Comment on above: Result Comment: TRIG ATPIII CLASSIFICATIONS TRIG less than 150 mg/dl Normal TRIG 150-199 mg/dl Borderline High TRIG 200-500 mg/dl High TRIG greather than 500 mg/dl Very High Performed By: #### T SH reflex FT4, LIPD, CMP, CBCAD #### [facility] [address], [place] [id number] Microalbumin (with Creat)on 09-26-2021 mALB 68.6 mg/dL Normal [facility] Comment on above: Result Comment: mALB reference range not established. Performed By: #### m ALBC #### [facility] [address], [place] [id number] mALB/Creat Ratio 336.3 MCG/MG Normal [facility] Comment on above: Result Comment: The ADA (Diabetes Care 26:S94-S98, 2003) defines abnormalities in Albumin excretion as follows: Category Result (MCG/MG Creatinine) Normal <30 Microalbuminuria 30-299 Clinical Albuminuria > or = 300 Performed By: #### m ALBC #### [facility] [address], [place] [id number] UCREA 204 mg/dL Normal 28-217 [facility] Comment on above: Performed By: #### m ALBC #### [facility] [address], [place] [id number] TSH w/ Reflex to Free T4on 0 09-26-2021 TSH 3.190 uIU/mL Normal 0.400-4.500 [facility] Comment on above: Performed By: #### T SH reflex FT4, LIPD, CMP, CBCAD #### [facility] [address], [place] [id number] Vital Signs Date Time Vital Sign Value Performing Clinician Dawood andrews 06-10-2024 14:08-0500 Body height 167.6 cm Lori Wood [employer] TECHNICIAN Work Phone: [facility] 06-10-2024 14:08-0500 Body mass index (BMI) [Ratio] 33.67 kg/m2 Lori Wood PORCELAIN TECHNICIAN Work Phone: [facility] 06-10-2024 14:08-0500 Body temperature 98.01 [degF] Lori Wood PORCELAIN TECHNICIAN Work Phone: [facility] 06-10-2024 14:08-0500 Body weight 94.62 kg oLri Wood PORCELAIN TECHNICIAN Work Phone: [facility] 06-10-2024 14:08-0500 Diastolic blood pressure 70 mm[Hg] Lori Wood PORCELAIN TECHNICIAN Work Phone: [facility] 06-10-2024 14:08-0500 Heart rate 67 /min Lori Wood PORCELAIN TECHNICIAN Work Phone: [facility] 06-10-2024 14:08-0500 SaO2% (BldA) [Mass fraction] 98 % Lori Wood P[employer]CELAIN TECHNICIAN Work Phone: [facility] 06-10-2024 14:08-0500 Systolic blood pressure 118 mm[Hg] Lori Wood PORCELAIN TECHNICIAN Work Phone: [facility] 05-20-2024 14:37-0500 Body height 167.6 cm Lori Wood PORCELAIN TECHNICIAN Work Phone: [facility] 05-20-2024 14:37-0500 Body mass index (BMI) [Ratio] 32.25 kg/m2 Lori Wood P[employer]CELAIN TECHNICIAN Work Phone: [facility] 05-20-2024 14:37-0500 Body temperature 98.2 [degF] Lori Wood PORCELAIN TECHNICIAN Work Phone: [facility] 05-20-2024 14:37-0500 Body weight 90.63 kg Lroi Wood PORCELAIN TECHNICIAN Work Phone: [facility] 05-20-2024 14:37-0500 Diastolic blood pressure 70 mm[Hg] Lori Wood PORCELAIN TECHNICIAN Work Phone: [facility] 05-20-2024 14:37-0500 Heart rate 70 /min Lori Wood P[employer]CELAIN TECHNICIAN Work Phone: [facility] 05-20-2024 14:37-0500 SaO2% (BldA) [Mass fraction] 98 % Lori Wood PORCELAIN TECHNICIAN Work Phone: [facility] 05-20-2024 14:37-0500 Systolic blood pressure 110 mm[Hg] Lori Wood PORCELAIN TECHNICIAN Work Phone: [facility] 05-01-2024 08:21-0400 Body height 167.6 cm Lorilopez Wood PORCELAIN TECHNICIAN Work Phone: [facility] 05-01-2024 08:21-0400 Body mass index (BMI) [Ratio] 31.47 kg/m2 Lori Wood PORCELAIN TECHNICIAN Work Phone: [facility] 05-01-2024 08:21-0400 Body temperature 98.01 [degF] Lori Wood PORCELAIN TECHNICIAN Work Phone: [facility] 05-01-2024 08:21-0400 Body weight 88.45 kg Lori Wood PORCELAIN TECHNICIAN Work Phone: [facility] 05-01-2024 08:21-0400 Diastolic blood pressure 72 mm[Hg] Lori Wood PORCELAIN TECHNICIAN Work Phone: [facility] 05-01-2024 08:21-0400 Heart rate 68 /min Lori Wood P[employer]CELAIN TECHNICIAN Work Phone: [facility] 05-01-2024 08:21-0400 SaO2% (BldA) [Mass fraction] 98 % Lori Wood PORCELAIN TECHNICIAN Work Phone: [facility] 05-01-2024 08:21-0400 Systolic blood pressure 118 mm[Hg] Lori Wood PORCELAIN TECHNICIAN Work Phone: [facility] 04-16-2024 13:44-0400 Body height 167.6 cm Lori Wood PORCELAIN TECHNICIAN Work Phone: [facility] 04-16-2024 13:44-0400 Body mass index (BMI) [Ratio] 32.09 kg/m2 Lori Wood P[employer]CELAIN TECHNICIAN Work Phone: [facility] 04-16-2024 13:44-0400 Body temperature 98.4 [degF] Lori Wood PORCELAIN TECHNICIAN Work Phone: [facility] 04-16-2024 13:44-0400 Body weight 90.17 kg Lori Wood PORCELAIN TECHNICIAN Work Phone: [facility] 04-16-2024 13:44-0400 Diastolic blood pressure 64 mm[Hg] Lori Wood PORCELAIN TECHNICIAN Work Phone: [facility] 04-16-2024 13:44-0400 Heart rate 68 /min Lori Wood PORCELAIN TECHNICIAN Work Phone: [facility] 04-16-2024 13:44-0400 SaO2% (BldA) [Mass fraction] 97 % Lori Wood PORCELAIN TECHNICIAN Work Phone: [facility] 04-16-2024 13:44-0400 Systolic blood pressure 110 mm[Hg] Lori Wood PORCELAIN TECHNICIAN Work Phone: [facility] 03-03-2024 15:06-0400 Body height 167.6 cm Lori Wood PORCELAIN TECHNICIAN Work Phone: [facility] 03-03-2024 15:06-0400 Body mass index (BMI) [Ratio] 32.77 kg/m2 Lori Wood PORCELAIN TECHNICIAN Work Phone: [facility] 03-03-2024 15:06-0400 Body temperature 98.4 [degF] Lori Wood PORCELAIN TECHNICIAN Work Phone: [facility] 03-03-2024 15:06-0400 Body weight 92.08 kg Lori Wood PORCELAIN TECHNICIAN Work Phone: [facility] 03-03-2024 15:06-0400 Diastolic blood pressure 86 mm[Hg] Lorilopez Wood PORCELAIN TECHNICIAN Work Phone: [facility] 03-03-2024 15:06-0400 Heart rate 70 /min Lori Wood PORCELAIN TECHNICIAN Work Phone: [facility] 03-03-2024 15:06-0400 SaO2% (BldA) [Mass fraction] 98 % Lori Wood PORCELAIN TECHNICIAN Work Phone: [facility] 03-03-2024 15:06-0400 Systolic blood pressure 120 mm[Hg] Lori Dilip P[employer]CELAIN TECHNICIAN Work Phone: [facility] 08-23-2023 10:44-0500 Diastolic blood pressure 84 mm[Hg] Haider Mcgee [facility] 08-23-2023 10:44-0500 Heart rate 74 /min Haider Mcgee [facility] 08-23-2023 10:44-0500 SaO2% (BldA) [Mass fraction] 96 % Haider Mcgee [facility] 08-23-2023 10:44-0500 Systolic blood pressure 132 mm[Hg] Haider Mcgee [facility] 06-08-2023 14:54-0500 Hourly Rounding Serafin James [facility] 06-08-2023 14:54-0500 Promise to Return Serafin James [facility] 06-08-2023 14:53-0500 Diastolic blood pressure 75 mm[Hg] Serafin Erika [facility] 06-08-2023 14:53-0500 Heart rate 61 /min Serafin Erika [facility] 06-08-2023 14:53-0500 Mean blood pressure 93 mm[Hg] Serafin Erika [facility] 06-08-2023 14:53-0500 Respiratory rate 18 /min Serafin Erika [facility] 06-08-2023 14:53-0500 SaO2% (BldA) [Mass fraction] 95 % Serafin Gregge [facility] 06-08-2023 14:53-0500 Systolic blood pressure 129 mm[Hg] Serafin Erika [facility] 06-08-2023 14:00-0500 Hourly Rounding Serafin Erika [facility] 06-08-2023 14:00-0500 Promise to Return Serafin Erika [facility] 06-08-2023 13:55-0500 Diastolic blood pressure 87 mm[Hg] Serafin Erika [facility] 06-08-2023 13:55-0500 Heart rate 59 /min Serafin Erika [facility] 06-08-2023 13:55-0500 Mean blood pressure 103 mm[Hg] Serafin Erika [facility] 06-08-2023 13:55-0500 Respiratory rate 16 /min Serafin Erika [facility] 06-08-2023 13:55-0500 SaO2% (BldA) [Mass fraction] 99 % Serafin Erika [facility] 06-08-2023 13:55-0500 Systolic blood pressure 134 mm[Hg] Serafin Erika [facility] 06-08-2023 13:00-0500 Hourly Rounding Serafin Erika [facility] 06-08-2023 13:00-0500 Promise to Return Serafin Erika [facility] 06-08-2023 12:55-0500 Diastolic blood pressure 79 mm[Hg] Serafin Erika [facility] 06-08-2023 12:55-0500 Heart rate 58 /min Serafin Erika [facility] 06-08-2023 12:55-0500 Mean blood pressure 99 mm[Hg] Serafin James [facility] 06-08-2023 12:55-0500 Respiratory rate 16 /min Serafin James [facility] 06-08-2023 12:55-0500 SaO2% (BldA) [Mass fraction] 98 % Serafin James [facility] 06-08-2023 12:55-0500 Systolic blood pressure 140 mm[Hg] Serafin James [facility] 06-08-2023 12:00-0500 Respiratory rate 17 /min Serafin James [facility] 06-08-2023 10:00-0500 Body temperature 98.24 [degF] Serafin James [facility] 06-08-2023 10:00-0500 Heart rate 57 /min Serafin James [facility] 05-09-2023 14:00-0400 Diastolic blood pressure 82 mm[Hg] Haider Mcgee [facility] 05-09-2023 14:00-0400 Heart rate 72 /min Haider Mcgee [facility] 05-09-2023 14:00-0400 SaO2% (BldA) [Mass fraction] 96 % Haider Mcgee [facility] 05-09-2023 14:00-0400 Systolic blood pressure 140 mm[Hg] Haider Mcgee [facility] Encounters Encounter Date Encounter Type Care Provider Facility Start: 06-10-2024 End: 06-10-2024 Bamboo flowsheet Lori Wood NP Work Phone: [facility] Start: 06-10-2024 End: 06-11-2024 Bamboo flowsheet Lori Wood PORCELAIN TECHNICIAN Work Phone: [facility] Start: 06-10-2024 End: 06-11-2024 External Result Encounter Lori Wood PORCELAIN TECHNICIAN Work Phone: [facility] Unsolicited Start: 06-10-2024 End: 06-10-2024 Office outpatient visit 25 minutes Lori Wood PORCELAIN TECHNICIAN Work Phone: [facility] Comment on above: Bipolar affective di sorder, currently depressed, moderate ([facility]/HCC) (Primary Dx); Frequent urination; Itching; Vaginal discharge; Type 2 diabetes mellitus without complication, without long-term current use of insulin ([facility]); Gastroesophageal reflux disease without esophagitis; Anxiety; Recurrent major depressive disorder, in partial remission (HCC) ([facility]) Start: 05-20-2024 End: 05-20-2024 ambulatory LORI WOOD Not Available Start: 05-20-2024 End: 05-20-2024 Office outpatient visit 25 minutes Lori Wood PORCELAIN TECHNICIAN Work Phone: [facility] Comment on above: Urinary tract infect ion with hematuria, site unspecified (Primary Dx); Statin declined; Hyperlipidemia, unspecified hyperlipidemia type ([facility]); Hypercholesterolemia ([facility]) Start: 05-20-2024 End: 05-20-2024 Bamboo flowsheet Lori Wood PORCELAIN TECHNICIAN Work Phone: [facility] Start: 05-20-2024 End: 05-20-2024 Bamboo flowsheet Lori Wood PORCELAIN TECHNICIAN Work Phone: [facility] Start: 05-06-2024 End: 05-07-2024 Telephone encounter Farideh Shi MD Work Phone: [facility] Comment on above: Results Start: 05-01-2024 End: 05-01-2024 Bamboo flowsheet Lori Wood PORCELAIN TECHNICIAN Work Phone: [facility] Start: 05-01-2024 End: 05-01-2024 Bamboo flowsheet Lori Wood PORCELAIN TECHNICIAN Work Phone: [facility] Start: 05-01-2024 End: 05-01-2024 Patient encounter status Lori Wood PORCELAIN TECHNICIAN Work Phone: [facility] Start: 05-01-2024 End: 05-01-2024 Periodic preventive med est patient 40-64yrs Lori Wood PORCELAIN TECHNICIAN Work Phone: [facility] Comment on above: Wellness examination (Primary Dx); Leukocytes in urine; Urinary tract infection without hematuria, site unspecified; Right flank pain; Screening for lipid disorders; Screening for heart disease; Encounter for screening for diabetes mellitus; Night sweats; Screening for thyroid disorder; Screening for deficiency anemia Start: 05-01-2024 End: 05-01-2024 ambulatory LORI OWOD Not Available Start: 04-23-2024 End: 04-23-2024 ambulatory XXXX NONE [place] [place]: 04-23-2024 End: 04-23-2024 Patient encounter procedure Ming Torres [facility] Start: 04-16-2024 End: 04-16-2024 Office outpatient visit 25 minutes Lori Wood PORCELAIN TECHNICIAN Work Phone: [facility] Comment on above: Urgency of urination (Primary Dx); Dysuria; Type 2 diabetes mellitus without complication, without long-term current use of insulin ([facility]); History of UTI; Urinary tract infection without hematuria, site unspecified; Vaginal dryness; Recurrent major depressive disorder, in partial remission (HCC) ([facility]) Start: 04-16-2024 End: 04-16-2024 Bamboo flowsheet Lori Wood PORCELAIN TECHNICIAN Work Phone: [facility] Start: 04-16-2024 End: 04-16-2024 Bamboo flowsheet Lori Wood PORCELAIN TECHNICIAN Work Phone: [facility] Start: 04-16-2024 End: 04-16-2024 ambulatory LORI WOOD Not Available Start: 04-14-2024 End: 04-14-2024 Jesús Palacios MD Work Phone: [facility] Comment on above: Arthralgia, unspecif ied joint Start: 03-03-2024 End: 03-03-2024 Office outpatient visit 25 minutes Lori Wood PORCELAIN TECHNICIAN Work Phone: [facility] Comment on above: Anxiety (Primary Dx) ; Dysuria; History of UTI; Recurrent major depressive disorder, in partial remission (HCC) ([facility]) Start: 03-03-2024 End: 03-03-2024 ambulatory LORI WOOD Not Available Start: 03-03-2024 End: 03-03-2024 Refill Lori Wood PORCELAIN TECHNICIAN Work Phone: [facility] Comment on above: Gastroesophageal ref lux disease without esophagitis Start: 02-18-2024 End: 02-18-2024 ambulatory LORI WOOD Not Available Start: 02-13-2024 End: 02-13-2024 ambulatory LORI WOOD Not Available Start: 02-09-2024 End: 02-09-2024 ambulatory ROLY Morgan MORFIN Not Available Start: 01-22-2024 End: 01-22-2024 ambulatory LORI WOOD Not Available Start: 01-08-2024 End: 01-08-2024 ambulatory LORI WOOD Not Available Start: 01-01-2024 End: 01-01-2024 ambulatory LORI WOOD Not Available Start: 12-20-2023 End: 12-20-2023 ambulatory LORI WOOD [place]: 12-20-2023 End: 12-20-2023 Patient encounter procedure LORI WOOD [facility] Start: 12-13-2023 End: 12-13-2023 ambulatory LORI WOOD [place] [place] Start: 12-13-2023 End: 12-13-2023 Patient encounter procedure LORI WOOD [facility] Start: 11-28-2023 End: 11-28-2023 ambulatory LORI WOOD Not Available Start: 11-14-2023 End: 11-14-2023 ambulatory LORI WOOD Not Available Start: 09-18-2023 End: 09-18-2023 ambulatory LORI WOOD Not Available Start: 08-23-2023 End: 08-24-2023 ambulatory Haider Mcgee [place] Start: 08-23-2023 End: 08-23-2023 ambulatory XXXX NONE [place] Start: 08-23-2023 End: 08-23-2023 Patient encounter procedure Haider Mcgee [facility] Start: 08-15-2023 End: 08-16-2023 ambulatory Haider Mcgee [place] Start: 08-15-2023 End: 08-15-2023 ambulatory Haider Mcgee [place] Start: 08-15-2023 End: 08-15-2023 Patient encounter procedure Haider Mcgee [facility] Start: 07-10-2023 End: 07-10-2023 ambulatory LORI WOOD Not Available Start: 06-08-2023 End: 06-08-2023 Emergency department patient visit Serafin James [place] Start: 06-08-2023 End: 06-08-2023 Emergency department patient visit Serafin James [facility] Start: 05-15-2023 End: 08-03-2023 Pre-admission assessment Haider Mcgee [facility] Start: 05-09-2023 End: 05-10-2023 ambulatory Haider Mcgee [place]: 05-09-2023 End: 05-09-2023 ambulatory LORI WOOD [place] Start: 05-09-2023 End: 05-09-2023 Patient encounter procedure Haider Mcgee [facility] Start: 03-04-2023 End: 03-05-2023 ambulatory LORI WOOD [place] [place] Start: 03-04-2023 End: 03-04-2023 Patient encounter procedure LORI WOOD [facility] Start: 04-04-2022 End: 04-05-[address] PA NIXON Facility:[facility] Start: 03-30-[address] PA NIXON Facility :[facility] Start: 03-27-[address] PA NIXON Facility :[facility] Start: 03-19-[address] PA NIXON Facility :[facility] Procedures Date Procedure Procedure Detail Performing Clinician Start: 06-10-2024 SURESWAB(R) ADAVANCED VAGINITIS, TMA Lori Wood PORCELAIN TECHNICIAN Work Phone: Start: 06-10-2024 Urnls dip stick/tablet rgnt non-auto w/o micrscp Lori Wood PORCELAIN TECHNICIAN Work Phone: Start: 05-20-2024 Urnls dip stick/tablet rgnt non-auto w/o micrscp Lori Wood PORCELAIN TECHNICIAN Work Phone: Start: 05-01-2024 Urnls dip stick/tablet rgnt non-auto w/o micrscp Lori Wood PORCELAIN TECHNICIAN Work Phone: Start: 04-16-2024 Urnls dip stick/tablet rgnt non-auto w/o micrscp Lori Wood PORCELAIN TECHNICIAN Work Phone: Start: 04-16-2024 Hemoglobin glycosylated a1c Lori tyson PORCELAIN TECHNICIAN Work Phone: Start: 03-03-2024 Urnls dip stick/tablet rgnt non-auto w/o micrscp Lori Wood PORCELAIN TECHNICIAN Work Phone: Start: 12-25-2023 Mammography Lori Wood PORCELAIN TECHNICIAN Work Phone: Start: 02-24-2021 Esophagogastroduodenoscopy LORI WOOD Start: 03-21-2020 Colonoscopy Lori Wood PORCELAIN TECHNICIAN Work Phone: Angioplasty of blood vessel Haider Tellobeny Bilateral dissection tonsillectomy Haider [place] section Haider swan section LORI CROSS RT Cholecystectomy Haider hoffmanricardo Cholecystectomy LORI HART T Colonoscopy Haider Tellochemadorinda rson Colonoscopy LORI WOOD Esophagogastroduoden oscopic electrohydraulic lithotripsy of bezoar in stomach Haider Mcgee Esophagogastroduodenoscopy Luis M WOOD Foot reconstruction LORI WOOD History of hernia repair Rya n Everardo Tonsillectomy LORI WOOD Plan of Treatment Date Care Activity Detail Author Start: 03-21-2030 Screening for malign ant neoplasm of colon [facility] Start: 05-01-2025 Urine screening for protein Diabetes: Urine Protein Screening [facility] Start: 12-24-2024 Screening for malign ant neoplasm of breast Mammogram [facility] Start: 11-27-2024 Urine screening for protein Diabetes: Urine Protein Screening [facility] Start: 09-17-2024 Urine screening for protein Diabetes: Urine Protein Screening [facility] Start: 07-17-2024 Hemoglobin A1c measurement Diabetes: Hemoglobin A1C [facility] Start: 07-14-2024 End: 07-14-2024 Patient encounter procedure 07/14/2024 2:00 PM EST Office Visit [facility] [address] [place] [phone] Lori Wood NP [address] [place] [address] [facility] Start: 07-02-2024 Screening for malign ant neoplasm of cervix [facility] Start: 06-29-2024 End: 06-29-2024 Patient encounter procedure 06/29/2024 10:00 AM EST Office Visit [facility] [address] [facility] [address] [place] [phone] Jaqueline Saldaña NP [address] [address] [place] [phone] [facility] Start: 06-10-2024 End: 06-10-2024 Patient encounter procedure 06/10/2024 2:00 PM EST Office Visit [facility] [address] [place] [phone] Lori Wood NP [address] [place] [address] [facility] Start: 06-10-2024 End: 06-10-2025 SURESWAB(R) ADAVANCED VAGINITIS, TMA SURESWAB(R) ADAVANCED VAGINITIS, TMA Pathology and Cytology Routine Frequent urination Itching Vaginal discharge Expected: 06/10/2024 (Approximate), Expires: 06/10/2025 [facility] Work Phone: Comment on above: Expected: 06/10/2024 (Approximate), Expires: 06/10/2025 Start: 05-15-2024 End: 05-15-2024 Patient encounter procedure 05/15/2024 10:00 AM EST Office Visit [facility] [address] [place] [phone] Lori Wood NP [address] [place] [address] [facility] Start: 05-05-2024 End: 05-05-2024 Patient encounter procedure 05/05/2024 3:00 PM EDT Office Visit [facility] [address] [place] [phone] Lori Wood NP [address] [place] [address] [facility] Start: 05-01-2024 End: 05-01-2025 Bacteria identified in Urine by Culture Urine culture Microbiology Routine Leukocytes in urine Expected: 05/01/2024 (Approximate), Expires: 05/01/2025 [facility] Work Phone: Comment on above: Expected: 05/01/2024 (Approximate), Expires: 05/01/2025 Start: 05-01-2024 End: 05-01-2025 CBC W Auto Differential panel - Blood CBC and differential Lab Routine Urinary tract infection without hematuria, site unspecified Wellness examination Screening for deficiency anemia Expected: 05/01/2024 (Approximate), Expires: 05/01/2025 [facility] Comment on above: Expected: 05/01/2024 (Approximate), Expires: 05/01/2025 Start: 05-01-2024 End: 05-01-2025 Comprehensive metabolic 2000 panel - Serum or Plasma Comprehensive metabolic panel Lab Routine Wellness examination Screening for lipid disorders Screening for heart disease Encounter for screening for diabetes mellitus Expected: 05/01/2024 (Approximate), Expires: 05/01/2025 [facility] Comment on above: Expected: 05/01/2024 (Approximate), Expires: 05/01/2025 Start: 05-01-2024 End: 05-01-2025 Erythrocyte sedimentation rate Sedimentation rate, automated Lab Routine Wellness examination Night sweats Screening for thyroid disorder Screening for deficiency anemia Expected: 05/01/2024 (Approximate), Expires: 05/01/2025 [facility] Comment on above: Expected: 05/01/2024 (Approximate), Expires: 05/01/2025 Start: 05-01-2024 End: 05-01-2025 FSH FSH Lab Routine Night sweats Expected: 05/01/2024 (Approximate), Expires: 05/01/2025 [facility] Comment on above: Expected: 05/01/2024 (Approximate), Expires: 05/01/2025 Start: 05-01-2024 End: 05-01-2025 Lipid 1996 panel - Serum or Plasma Lipid panel Lab Routine Wellness examination Screening for lipid disorders Screening for heart disease Encounter for screening for diabetes mellitus Expected: 05/01/2024 (Approximate), Expires: 05/01/2025 [facility] Comment on above: Expected: 05/01/2024 (Approximate), Expires: 05/01/2025 Start: 05-01-2024 End: 05-01-2025 TSH W/REFLEX TO FT4 TSH W/REFLEX TO FT4 Lab Routine Wellness examination Night sweats Screening for thyroid disorder Expected: 05/01/2024 (Approximate), Expires: 05/01/2025 [facility] Comment on above: Expected: 05/01/2024 (Approximate), Expires: 05/01/2025 Start: 05-01-2024 End: 05-01-2024 Patient encounter procedure [facility] Comment on above: Arrived Start: 04-23-2024 End: 04-23-2024 Patient encounter procedure 04/23/2024 3:20 PM EDT Office Visit [facility] [address] [place] [phone] Lori Wood NP [address] [place] [address] [facility] Start: 04-16-2024 End: 04-16-2024 Patient encounter procedure 04/16/2024 2:20 PM EDT Office Visit [facility] [address] [place] [phone] Lori Wood NP [address] [place] [address] Arrived [facility] Comment on above: Arrived Start: 04-16-2024 End: 04-16-2025 Bacteria identified in Urine by Culture Urine culture Microbiology Routine Dysuria Expected: 04/16/2024 (Approximate), Expires: 04/16/2025 [facility] Work Phone: Comment on above: Expected: 04/16/2024 (Approximate), Expires: 04/16/2025 Start: 04-02-2024 Hemoglobin A1c measurement Diabetes: Hemoglobin A1C [facility] Start: 03-08-2024 Influenza vaccination Influenza Vacc ine (#1) [facility] Start: 03-03-2024 End: 03-03-2024 Patient encounter procedure 03/03/2024 3:00 PM EDT Office Visit [facility] [address] [place] [phone] Lori Wood NP [address] [place] [address] [facility] Start: 09-26-2022 Glaucoma screening Diabetes: R etinopathy Screening [facility] Start: 1981 Screening for malign ant neoplasm of cervix Pap Smear [facility] Start: 1960 Screening for malign ant neoplasm of colon [facility] Immunizations Immunization Date Immunization Notes Care Provider Fa cili 05-17-2023 tetanus toxoid, redu gerardo diphtheria toxoid, and acellular pertussis vaccine, adsorbed Lori Wood NP Work Phone: [facility] Payers Date Payer Category Payer Private Health Insurance 2023 Private Health Insurance [id number] 1960 Unknown [id number] 2.16.84 [id number] 1960 Unknown [id number] 2.16.84 0.1.050203.3.579.2.593 1960 Unknown [id number] 2.16.84 0.1.062933.3.579.2.593 1960 Unknown [id number] 2.16.84 0.1.342156.3.579.2.593 1960 Unknown [id number] 2.16.8 40.1.303721.3.579.2.727 1960 Unknown [id number] 2.16.8 40.1.202019.3.579.2.727 1960 Unknown [id number] 2.16.8 40.1.565832.3.579.2.727 1960 Unknown [id number] 2.16.8 40.1.701585.3.579.2.727 1960 Unknown [id number] 2.16.8 40.1.730499.3.579.2.72 1960 Unknown [id number] 2.16.8 40.1.010837.3.579.2.72 1960 Unknown [id number] 2.16.8 40.1.834377.3.579.2. 1960 Unknown [id number] 2.16.8 40.1.790191.3.579.2.72 1960 Unknown [id number] 2.16.84 0.1.169861.3.579.2.1258 1960 Unknown [id number] 2.16.84 0.1.788628.3.579.2.1258 1960 Unknown [id number] 2.16.84 0.1.247792.3.579.2.1258 1960 Unknown [id number] 2.16.84 0.1.741837.3.579.2.1258 1960 Unknown [id number] 2.16.84 0.1.988296.3.579.2.1258 1960 Unknown [id number] 2.16.84 0.1.640534.3.579.2.1258 1960 Unknown [id number] 2.16.84 0.1.408620.3.579.2.1258 1960 Unknown [id number] 2.16.84 0.1.583346.3.579.2.1258 1960 Unknown [id number] 2.16.84 0.1.691380.3.579.2.1258 1960 Unknown [id number] 2.16.84 0.1.964453.3.579.2.1258 1960 Unknown [id number] 2.16.84 0.1.788004.3.579.2.1258 1960 Unknown [id number] 2.16.84 0.1.536840.3.579.2.1259 1960 Unknown [id number] 2.16.84 0.1.904967.3.579.2.1259 1960 Unknown [id number] 2.16.840 .1.259365.3.579.2.1259 1959 Unknown [id number] Social History Date Type Detail Facility Tobacco smoking status [facility] Start: 02-01-2023 End: 11-28-2023 Sex Assigned At Female [facility] Start: 02-01-2023 End: 05-09-2023 Tobacco smoking status Never smoked tobacco (finding) [facility] Start: 02-01-2023 Tobacco use and exposure Smokeless tobacco non-user [facility] Start: 02-18-2024 End: 03-03-2024 Alcoholic beverage intake Current drinker of alcohol (finding) [facility] Start: 11-28-2023 End: 03-03-2024 Alcoholic beverage intake [facility] In a typical week, h ow many times do you talk on the telephone with family, friends, or neighbors? Patient declined [facility] Start: 01-31-2023 Alcohol Comment Caffeine intak e: 1-2 cups per day [facility] Start: 1960 Sex assigned at Not on file [facility] Medical Equipment Procedure Code Equipment Code Equipment Origin al Text Equipment Identifier Dates Use as directed to test blood sugar every day [id number] Start: 11-19-2023 Functional Status Date Assessment Result Facility 04-23-2024 Functional Status N/A [facility] 08-23-2023 Functional Status N/A [facility] 06-08-2023 Functional Status N/A [facility] 05-09-2023 Functional Status No [facility] Clinical Notes 08-15-2019 to 06-10-2024 Lori Wood NP - 06/10/2024 2:00 PM Bhavin Wood NP - 05/20/2024 2:20 PM ESTTelephone Riki Lion - 05/06/2024 4:29 PM EDTLori Wood NP - 05/01/2024 8:20 AM EDTRadiology Note Date & Type Note Facility 06-10-2024 History of Present illness Narrative Images from the original note were not included. Jane Chirinos is a 63 y.o. female presents with chief complaint of Immunizations (Declines at this time), Follow-up, and UTI HPI: History of Present Illness The patient presents for evaluation of multiple medical concerns. She requires a refill of her lamotrigine medication as her current supply will not last until her appointment with Jaqueline on 06/29/2024. She reports feeling well at present and is comfortable with the idea of starting treatment with Jaqueline. She is managing well with her fluoxetine and does not require hydroxyzine. She is currently taking Prozac 10 mg and reports no thoughts of self-harm. She has gained approximately 11 pounds. Her metformin prescription has , and she is requesting a refill to be sent to [facility]. She is also requesting a refill of her omeprazole, which she reports is effective. She reports a slight white discharge accompanied by itching, which she attributes to a yeast infection. She has been taking Augmentin as prescribed. She has engaged in sexual activity, but without penetration. She is still taking cranberry supplements. She is experiencing urinary frequency and still has pain in her side that wraps around. MEDICATIONS: Current Outpatient Medications Medication Instructions Acetaminophen (TYLENOL ARTHRITIS PAIN PO) Tylenol Arthritis Pain Blood Glucose Monitoring Suppl ([employer] Autocode Blood Glucose) w/Device kit Use as directed to test blood sugar every day D-MANNOSE PO Take by mouth esomeprazole (NEXIUM) 20 mg, Oral, Daily before breakfast, Do not open capsule. FLUoxetine (PROZAC) 10 mg, Oral, Daily glucose blood ([employer] No Coding Blood Gluc) test strip Use as directed to test blood sugar every day hydrOXYzine HCl (ATARAX) 10 mg, Every 3 hours PRN lamoTRIgine (LAMICTAL) 25 mg, Oral, Daily metFORMIN (GLUCOPHAGE) 1,000 mg, Oral, Daily with breakfast ALLERGIES: Allergies Allergen Reactions Wound Dressing Adhesive Unknown Review of Systems Medical, Surgical, Family, and Social History reviewed. General: Denies fever, chills, fatigue, CROSS or weight loss/gain CV: Denies CP, palpitations or swelling in legs Resp: denies cough, SOB or wheezing GI: Denies abd pain/n/v/c/d Skin: Denies rash Neuro: Denies LH or dizziness OBJECTIVE: Visit Vitals BP 118/70 (BP Location: Left arm, Patient Position: Sitting, BP Cuff Size: Adult) Pulse 67 Temp 98 F (Temporal) Ht 5' 6 Wt 208 lb 9.6 oz LMP (LMP Unknown) SpO2 98% BMI 33.67 kg/m OB Status Postmenopausal Smoking Status Never BSA 2.1 m BP Readings from Last 3 Encounters: 06/10/24 118/70 05/20/24 110/70 05/01/24 118/72 Wt Readings from Last 3 Encounters: 06/10/24 208 lb 9.6 oz 05/20/24 199 lb 12.8 oz 05/01/24 195 lb Physical Exam Physical Exam General: alert & oriented, NAD Head: NC/AT Oral Cavity: MMM Skin: warm, dry Heart: RRR, No m/r/g, S1S2 nml Lungs: CTA b/l Abdomen: soft, ND/NT, BS wnl Musculoskeletal: normal gait Extremities: no clubbing, cyanosis or edema Neurological: nonfocal Psych: mood/affect full range Clear lung sounds. Normal heart. No CVA tenderness in the gastrointestinal system. Vital Signs Blood pressure is 118/70. No cvat tenderness Results ASSESSMENT AND PLAN: Assessment & Plan 1. Medication Management. Prescriptions for lamotrigine, metformin, omeprazole, and fluoxetine 10 mg have been refilled. The lamotrigine will be sent to [facility] in [place], while the [facility]. The flu[facility]etine will also be sent to [facility] in [place]. 2. Vaginal Discharge. The patient reports experiencing vaginal discharge that is white and itchy, suggesting a possible yeast infection. A swab test will be conducted to rule out bacterial vaginosis (BV). If the swab test confirms BV, appropriate treatment will be initiated. In the meantime, a prescription for Diflucan has been provided. Follow-up Patient return in 1 month for follow up. Assessment/Plan Diagnoses and all orders for this visit: Bipolar affective disorder, currently depressed, moderate (CMS/HCC) - lamoTRIgine (LaMICtal) 25 MG tablet; Take 1 tablet (25 mg) by mouth Daily Frequent urination - POCT Urinalysis dipstick - SURESWAB(R) ADAVANCED VAGINITIS, TMA; Future Itching - SURESWAB(R) ADAVANCED VAGINITIS, TMA; Future Vaginal discharge - SURESWAB(R) ADAVANCED VAGINITIS, TMA; Future Type 2 diabetes mellitus without complication, without long-term current use of insulin ([facility]) - metFORMIN (Glucophage) 1000 MG tablet; Take 1 tablet (1,000 mg) by mouth in the morning. Take with meals. Gastroesophageal reflux disease without esophagitis - esomeprazole (NexIUM) [address] capsule; Take 1 capsule (20 mg) by mouth in the morning. Take before meals. Do not open capsule.. Anxiety - FLUoxetine (PROzac) 10 MG capsule; Take 1 capsule (10 mg) by mouth Daily Recurrent major depressive disorder, in partial remission (HCC) ([facility]) - FLUoxetine (PROzac) 10 MG capsule; Take 1 capsule (10 mg) by mouth Daily Health Maintenance Due Topic Date Due Diabetes: Retinopathy Screening 09/26/2022 Influenza Vaccine (1) Never done Cervical Cancer Screening 07/02/2024 documented in this encounter [facility] 05-20-2024 History of Present illness Narrative Images from the original note were not included. Jane Chirinos is a 63 y.o. female presents with chief complaint of Follow-up HPI: History of Present Illness The patient presents for evaluation of multiple medical concerns. She reports a slight improvement in her condition and has been more stable recently. She has been adhering to her prescribed medication regimen, which includes lamotrigine 25 mg once daily, fluoxetine 10 mg, and hydroxyzine 20 mg at night. She has not been taking hydroxyzine during the day. She was previously on a higher dose of lamotrigine (150 mg twice daily) but was taken off it due to pain experienced in the spring. She has been using the Calm cinda provided by [employer] and finds it beneficial. She is also making an effort to read more, which she believes is helping her understand her condition better. She has completed all her blood work and is aware that her cholesterol levels are high. She is hesitant to start statin therapy due to potential side effects and is seeking alternative options. She has been experiencing urinary tract infections (UTIs) and has been taking D-mannose and Azo-Cranberry as part of her treatment. She is concerned about the impact of her condition on her sexual life and is apprehensive about using any products, such as lubricants, that might exacerbate her symptoms. She is also taking probiotics and has noticed a change in her taste for certain dairy products since her COVID-19 infection. MEDICATIONS: Current Outpatient Medications Medication Instructions Acetaminophen (TYLENOL ARTHRITIS PAIN PO) Tylenol Arthritis Pain Blood Glucose Monitoring Suppl ([employer] Autocode Blood Glucose) w/Device kit Use as directed to test blood sugar every day D-MANNOSE PO Take by mouth esomeprazole (NexIUM) [address] capsule TAKE ONE CAPSULE BY MOUTH IN THE MORNING BEFORE MEALS. DO NOT OPEN CAPSULE. glucose blood ([employer] No Coding Blood Gluc) test strip Use as directed to test blood sugar every day hydrOXYzine HCl (ATARAX) 10 mg, Every 3 hours PRN lamoTRIgine (LAMICTAL) 25 mg, Oral, Daily metFORMIN (GLUCOPHAGE) 1,000 mg, Oral, Daily with breakfast PROzac 10 MG capsule 1 capsule, Every 24 hours ALLERGIES: Allergies Allergen Reactions Wound Dressing Adhesive Unknown Review of Systems Medical, Surgical, Family, and Social History reviewed. General: Denies fever, chills, fatigue, CROSS or weight loss/gain CV: Denies CP, palpitations or swelling in legs Resp: denies cough, SOB or wheezing GI: Denies abd pain/n/v/c/d Skin: Denies rash Neuro: Denies LH or dizziness OBJECTIVE: Visit Vitals BP 110/70 (BP Location: Right arm, Patient Position: Sitting, BP Cuff Size: Adult) Pulse 70 Temp 98.2 F (Temporal) Ht 5' 6 Wt 199 lb 12.8 oz LMP (LMP Unknown) SpO2 98% BMI 32.25 kg/m OB Status Postmenopausal Smoking Status Never BSA 2.05 m BP Readings from Last 3 Encounters: 05/20/24 110/70 05/01/24 118/72 04/16/24 110/64 Wt Readings from Last 3 Encounters: 05/20/24 199 lb 12.8 oz 05/01/24 195 lb 04/16/24 198 lb 12.8 oz Physical Exam Physical Exam General: alert & oriented, NAD Head: NC/AT Oral Cavity: MMM Skin: warm, dry Heart: RRR, No m/r/g, S1S2 nml Lungs: CTA b/l Abdomen: soft, ND/NT, BS wnl Musculoskeletal: normal gait Extremities: no clubbing, cyanosis or edema Neurological: nonfocal Psych: mood/affect full range Results Laboratory Studies Cholesterol is 173. Triglycerides are 261. ASSESSMENT AND PLAN: Assessment & Plan 1. Anxiety. She has been restarted on Lamictal 25 mg once a day. She is also taking fluoxetine 10 mg and hydroxyzine 20 mg at night. She is encouraged to continue working on mindfulness and changing her thought process to improve coping mechanisms. 2. Hypercholesterolemia. [place] supplements were recommended, along with an increased intake of fish and vegetables. She is advised to try omega-red supplements and to eat fish like salmon, tilapia, or niranjan-niranjan at least once a week. 3. Urinary tract infection. The urine sample appeared to be contaminated, and the last urine culture showed no growth. A water-based lubricant was suggested for use. She was advised to urinate before and after intercourse to prevent potential complications. If the test results indicate the presence of bacteria, a different antibiotic will be prescribed. Follow-up Return in 3 weeks for follow up. Assessment/Plan Diagnoses and all orders for this visit: Urinary tract infection with hematuria, site unspecified - POCT urinalysis dipstick manually resulted Statin declined Hyperlipidemia, unspecified hyperlipidemia type (CMS/HCC) Hypercholesterolemia ([facility]/HCC) Health Maintenance Due Topic Date Due Diabetes: Retinopathy Screening 09/26/2022 Influenza Vaccine (1) Never done Cervical Cancer Screening 07/02/2024 documented in this encounter [facility] 05-06-2024 Telephone encounter Note Ptcb she was informed of test results, pt stated she would like to discuss statin meds at her upcoming appt thank you [facility] 05-06-2024 Miscellaneous Notes Ptcb she was informed of test results, pt stated she would like to discuss statin meds at her upcoming appt thank you documented in this encounter [facility] 05-01-2024 History of Present illness Narrative Images from the original note were not included. Jane Chirinos is a 63 y.o. female presents with chief complaint of Annual Exam (Annual exam with form for completion), UTI (Recheck for UTI), and Immunizations (Patient declines at this time. ) HPI: History of Present Illness The patient presents for evaluation of multiple medical concerns. She is currently under the care of Dr. Macedo and has been taking fluoxetine for approximately 5 weeks. She reports intermittent periods of well-being but also experiences episodes of anxiety. She has been experiencing social anxiety and has been forcing herself to engage in activities such as spending time with her grandchildren. Her sleep has been disrupted due to her anxiety and night sweats. She is curious if her hormones could be contributing to her symptoms. She has not been taking hydroxyzine as frequently. She has been experiencing right flank pain, which she initially suspected to be appendicitis, but the pain does not intensify upon palpation. The pain is described as a dull ache. She has recently started experiencing night sweats, which she has never experienced before. She has been fasting since 7:00 PM the previous night. She has been experiencing dizziness, which she attributes to an increase in her Prozac dosage from 10 to 20 mg. She has since reduced the dosage back to 10 mg. She had a consultation with a mechanical engineering director 2 weeks ago, during which she underwent a stress test and echocardiogram, both of which were normal. She has been experiencing intermittent earaches and sinus issues, for which she has been using Flonase. MEDICATIONS: Current Outpatient Medications Medication Instructions Acetaminophen (TYLENOL ARTHRITIS PAIN PO) Tylenol Arthritis Pain amoxicillin-clavulanate (Augmentin) 875-125 MG tablet 875 mg, Oral, 2 times daily Blood Glucose Monitoring Suppl ([employer] Blood Glucose) w/Device kit Use as directed to test blood sugar every day D-MANNOSE PO Take by mouth esomeprazole (NexIUM) [address] capsule TAKE ONE CAPSULE BY MOUTH IN THE MORNING BEFORE MEALS. DO NOT OPEN CAPSULE. fluconazole (DIFLUCAN) 150 mg, Oral, Once glucose blood ([employer] No Coding Blood Gluc) test strip Use as directed to test blood sugar every day hydrOXYzine HCl (ATARAX) 10 mg, Every 3 hours PRN metFORMIN (GLUCOPHAGE) 1,000 mg, Oral, Daily with breakfast PROzac 10 MG capsule 1 capsule, Every 24 hours ALLERGIES: Allergies Allergen Reactions Wound Dressing Adhesive Unknown Review of Systems Medical, Surgical, Family, and Social History reviewed. General: Denies fever, chills, fatigue, CROSS or weight loss/gain CV: Denies CP, palpitations or swelling in legs Resp: denies cough, SOB or wheezing GI: Denies abd pain/n/v/c/d Skin: Denies rash Neuro: Denies LH or dizziness OBJECTIVE: Visit Vitals BP 118/72 (BP Location: Left arm, Patient Position: Sitting, BP Cuff Size: Large adult) Pulse 68 Temp 98 F (Temporal) Ht 5' 6 Wt 195 lb LMP (LMP Unknown) SpO2 98% BMI 31.47 kg/m OB Status Postmenopausal Smoking Status Never BSA 2.03 m BP Readings from Last 3 Encounters: 05/01/24 118/72 04/16/24 110/64 03/03/24 120/86 Wt Readings from Last 3 Encounters: 05/01/24 195 lb 04/16/24 198 lb 12.8 oz 03/03/24 203 lb Physical Exam Physical Exam General: alert & oriented, NAD Head: NC/AT Oral Cavity: MMM Skin: warm, dry Heart: murmur Lungs: CTA b/l Abdomen: soft, ND/NT, BS wnl Musculoskeletal: normal gait Extremities: no clubbing, cyanosis or edema Neurological: nonfocal Psych: mood/affect full range Postnasal drip noted. Slightly swollen lymph nodes present. Lungs are clear. Small murmur detected in heart. No CVA tenderness in the gastrointestinal system. Results ASSESSMENT AND PLAN: Assessment & Plan 1. Anxiety. She reports experiencing social anxiety and moments of good and bad days. She has been on fluoxetine for about 5 weeks but finds the 20 mg dose too much, causing dizziness, and has reduced it to 10 mg. She has also been taking hydroxyzine less frequently. She is advised to continue with fluoxetine 10 mg and to monitor her symptoms. If her symptoms persist, further adjustments to her medication may be considered. Additionally, her anxiety may be contributing to her night sweats and overall discomfort. 2. Urinary Tract Infection (UTI). She has been experiencing recurrent UTIs. Augmentin has been prescribed to treat the current infection. She is advised to take the medication for 10 days. If she experiences a yeast infection, she should take the prescribed antifungal medication 5 days into the antibiotic course. 3. Sinus Infection. She reports on and off earache and sinus issues. Augmentin has been prescribed, which will also treat her sinus infection. She is advised to take Claritin or Zyrtec for her nasal congestion. If her nasal congestion persists for about 7 days, she should inform the clinic as it may indicate a sinus infection. 4. Night Sweats. She has recently started experiencing night sweats, which may be related to her anxiety or hormonal changes. A comprehensive metabolic panel (CMP), cholesterol, complete blood count (CBC), sedimentation rate, and thyroid tests will be conducted to rule out other potential causes. Follow-up Return in 2 weeks for follow-up. Assessment/Plan Diagnoses and all orders for this visit: Wellness examination - Comprehensive metabolic panel; Future - Lipid panel; Future - TSH W/REFLEX TO FT4; Future - Sedimentation rate, automated; Future - CBC and differential; Future Leukocytes in urine - POCT urinalysis dipstick manually resulted - Urine culture; Future - amoxicillin-clavulanate (Augmentin) 875-125 MG tablet; Take 1 tablet (875 mg) by mouth in the morning and 1 tablet (875 mg) before bedtime. Do all this for 10 days. Urinary tract infection without hematuria, site unspecified - amoxicillin-clavulanate (Augmentin) 875-125 MG tablet; Take 1 tablet (875 mg) by mouth in the morning and 1 tablet (875 mg) before bedtime. Do all this for 10 days. - CBC and differential; Future - fluconazole (Diflucan) 150 MG tablet; Take 1 tablet (150 mg) by mouth 1 (one) time for 1 dose Right flank pain - amoxicillin-clavulanate (Augmentin) 875-125 MG tablet; Take 1 tablet (875 mg) by mouth in the morning and 1 tablet (875 mg) before bedtime. Do all this for 10 days. Screening for lipid disorders - Comprehensive metabolic panel; Future - Lipid panel; Future Screening for heart disease - Comprehensive metabolic panel; Future - Lipid panel; Future Encounter for screening for diabetes mellitus - Comprehensive metabolic panel; Future - Lipid panel; Future Night sweats - FSH; Future - TSH W/REFLEX TO FT4; Future - Sedimentation rate, automated; Future Screening for thyroid disorder - TSH W/REFLEX TO FT4; Future - Sedimentation rate, automated; Future Screening for deficiency anemia - Sedimentation rate, automated; Future - CBC and differential; Future Health Maintenance Due Topic Date Due Diabetes: Retinopathy Screening 09/26/2022 Influenza Vaccine (1) Never done Cervical Cancer Screening 07/02/2024 documented in this encounter [facility] 04-16-2024 History of Present illness Narrative Images from the original note were not included. Jane Chirinos is a 63 y.o. female presents with chief complaint of UTI and Diabetes (Patient in need of DM check) HPI: History of Present Illness The patient presents for evaluation of a urinary tract infection. She reports experiencing right flank pain but no abdominal discomfort. She describes a periodic ache in the pelvic region rather than constant pressure. Additionally, she mentions a burning sensation during urination, accompanied by urgency and frequency, particularly at night. Despite these symptoms, she has been feeling well overall. She has been diligent about personal hygiene and has increased her fluid intake. She reports no diarrhea or sexual activity due to associated pain. She has tried various lubricants without success and is hesitant to try new products due to her ongoing urinary tract infections. Her last visit to her DETAILER was a few years ago when her symptoms were less severe. She has been on fluoxetine 10 mg for about 2 weeks now. She discontinued Vraylar and initially stopped fluoxetine because she was not doing well, and it was determined that Vraylar was the issue. She continued using hydroxyzine frequently, noting that while it does not work quickly, it provides some relief. Currently, she is not relying heavily on hydroxyzine but still uses it as needed. MEDICATIONS: Current Outpatient Medications Medication Instructions Acetaminophen (TYLENOL ARTHRITIS PAIN PO) Tylenol Arthritis Pain Blood Glucose Monitoring Suppl ([employer] Blood Glucose) w/Device kit Use as directed to test blood sugar every day D-MANNOSE PO Oral esomeprazole (NexIUM) [address] capsule TAKE ONE CAPSULE BY MOUTH IN THE MORNING BEFORE MEALS. DO NOT OPEN CAPSULE. fluconazole (DIFLUCAN) 150 mg, Oral, Once glucose blood ([employer] No Coding Blood Gluc) test strip Use as directed to test blood sugar every day hydrOXYzine HCl (ATARAX) 10 mg, Oral, Every 3 hours PRN metFORMIN (GLUCOPHAGE) 1,000 mg, Oral, Daily with breakfast PROzac 10 MG capsule 1 capsule, Every 24 hours sulfamethoxazole-trimethoprim (Bactrim DS) 800-160 MG per tablet 1 tablet, Oral, 2 times daily ALLERGIES: Allergies Allergen Reactions Wound Dressing Adhesive Unknown Review of Systems Medical, Surgical, Family, and Social History reviewed. General: Denies fever, chills, fatigue, CROSS or weight loss/gain CV: Denies CP, palpitations or swelling in legs Resp: denies cough, SOB or wheezing GI: Denies abd pain/n/v/c/d Skin: Denies rash Neuro: Denies LH or dizziness OBJECTIVE: Visit Vitals BP 110/64 (BP Location: Left arm, Patient Position: Sitting, BP Cuff Size: Large adult) Pulse 68 Temp 98.4 F (Temporal) Ht 5' 6 Wt 198 lb 12.8 oz LMP (LMP Unknown) SpO2 97% BMI 32.09 kg/m OB Status Postmenopausal Smoking Status Never BSA 2.05 m BP Readings from Last 3 Encounters: 04/16/24 110/64 03/03/24 120/86 02/18/24 104/66 Wt Readings from Last 3 Encounters: 04/16/24 198 lb 12.8 oz 03/03/24 203 lb 02/18/24 200 lb Physical Exam Physical Exam General: alert & oriented, NAD Head: NC/AT Oral Cavity: MMM Skin: warm, dry Heart: RRR, No m/r/g, S1S2 nml Lungs: CTA b/l Abdomen: soft, ND/NT, BS wnl Musculoskeletal: normal gait Extremities: no clubbing, cyanosis or edema Neurological: nonfocal Psych: mood/affect full range Results Laboratory Studies Urine test shows trace evidence of bacteria. Hemoglobin A1c is 6.1. ASSESSMENT AND PLAN: Assessment & Plan 1. Urinary Tract Infection. She reports right flank pain, slight burning on urination, urgency, and frequency, especially at night. Urine sample tested negative for blood but showed trace evidence of bacteria. A prescription for Bactrim, to be taken twice daily for three days, was provided. Additionally, Diflucan was prescribed for potential yeast infection, to be taken on the third day of Bactrim treatment. She is advised to maintain good hygiene and continue drinking plenty of fluids. If symptoms persist, further evaluation will be needed. 2. Vaginal Dryness. She reports painful intercourse and has tried various lubricants without success. She is advised to consult with an OBGYN for a potential prescription of estradiol to help with vaginal dryness. If there is no improvement, further evaluation will be needed to rule out any mechanical issues. 3. Diabetes Mellitus. Her hemoglobin A1c level is 6.1, indicating stable control of her diabetes. She is advised to continue her current medication regimen and maintain a balanced diet. 4. Medication Management. She has been on fluoxetine 10 mg for about two weeks and reports a slight improvement in symptoms. She is advised to continue the current dosage and follow up with her psychiatrist next week. Follow-up Patient is scheduled for a follow-up visit in one week. Assessment/Plan Diagnoses and all orders for this visit: Urgency of urination Dysuria - POCT urinalysis dipstick manually resulted - Urine culture; Future Type 2 diabetes mellitus without complication, without long-term current use of insulin ([facility]) - POCT glycated hemoglobin, total docked device History of UTI Urinary tract infection without hematuria, site unspecified - sulfamethoxazole-trimethoprim (Bactrim DS) 800-160 MG per tablet; Take 1 tablet by mouth in the morning and 1 tablet before bedtime. Do all this for 3 days. - fluconazole (Diflucan) 150 MG tablet; Take 1 tablet (150 mg) by mouth 1 (one) time for 1 dose Vaginal dryness Recurrent major depressive disorder, in partial remission (HCC) ([facility]) Health Maintenance Due Topic Date Due Diabetes: Retinopathy Screening 09/26/2022 Influenza Vaccine (1) Never done Cervical Cancer Screening 07/02/2024 documented in this encounter [facility] 03-03-2024 History of Present illness Narrative Jane Chirinos is a 63 y.o. female presents with chief complaint of Follow-up (Patient here today for UTI follow up. ) HPI: HPI Pt still on vraylar and hydralazin and Prozac 10mg. Pt denies any uti symptoms. Pt states still at night she has to go more frequently. Pt states she is mentally doing better next appt is March 28. SUBJECTIVE: MEDICATIONS: Current Outpatient Medications Medication Instructions Acetaminophen (TYLENOL ARTHRITIS PAIN PO) Tylenol Arthritis Pain Blood Glucose Monitoring Suppl ([employer] Autocode Blood Glucose) w/Device kit Use as directed to test blood sugar every day Cariprazine HCl (VRAYLAR PO) Oral esomeprazole (NexIUM) [address] capsule TAKE ONE CAPSULE BY MOUTH IN THE MORNING BEFORE MEALS. DO NOT OPEN CAPSULE. glucose blood ([employer] No Coding Blood Gluc) test strip Use as directed to test blood sugar every day hydrOXYzine HCl (ATARAX) 10 mg, Oral, Every 3 hours PRN metFORMIN (GLUCOPHAGE) 1,000 mg, Oral, Daily with breakfast PROzac 10 MG capsule 1 capsule, Every 24 hours ALLERGIES: Allergies Allergen Reactions Wound Dressing Adhesive Unknown REVIEW OF SYMPTOMS: Review of Systems General: Denies fever, chills, fatigue, CROSS or weight loss/gain CV: Denies CP, palpitations or swelling in legs Resp: denies cough, SOB or wheezing GI: Denies abd pain/n/v/c/d Skin: Denies rash Neuro: Denies LH or dizziness OBJECTIVE: Visit Vitals BP 120/86 Pulse 70 Temp 98.4 F Ht 5' 6 Wt 203 lb SpO2 98% BMI 32.77 kg/m OB Status Unknown Smoking Status Never BSA 2.07 m BP Readings from Last 3 Encounters: 03/03/24 120/86 02/18/24 104/66 02/13/24 118/72 Wt Readings from Last 3 Encounters: 03/03/24 203 lb 02/18/24 200 lb 02/13/24 199 lb 6.4 oz Lab Results Component Value Date HGBA1C 6.0 01/01/2024 HGBA1C 6.6 09/18/2023 HGBA1C 7.2 05/02/2023 Lab Results Component Value Date CREATININE 0.90 11/28/2023 Physical Exam General: alert & oriented, NAD Head: NC/AT Oral Cavity: MMM Skin: warm, dry Heart: RRR, No m/r/g, S1S2 nml Lungs: CTA b/l Abdomen: soft, ND/NT, BS wnl Musculoskeletal: normal gait Extremities: no clubbing, cyanosis or edema Neurological: nonfocal Psych: mood/affect full range ASSESSMENT AND PLAN: Assessment/Plan Diagnoses and all orders for this visit: Anxiety Dysuria - POCT urinalysis dipstick manually resulted History of UTI - POCT urinalysis dipstick manually resulted Recurrent major depressive disorder, in partial remission (HCC) (CMS/HCC) No uti is present at this time. No thoughts of hurting self. Pt feels controlled at this time. documented in this encounter [facility] 08-27-2023 Note Echocardiology Procedure Exam Date/Time Accession # Ordering ECG Stress Exercise 08/15/2023 08:01 EST [id number] Haider Mcgee MD CPT code 71391 Reason for Exam (ECG Stress Exercise) I49.8;Other (please specify) Report PROCEDURE: Treadmill exercise stress test. INDICATIONS: Palpitations. PROCEDURE DETAILS: The patient was stressed according to the Piyush Protocol. Exercised for 4 minutes 28 seconds achieving heart rate of 118 beats per minute which is 74% maximal age predicted heart rate of 6.3 METS. The patient had test stopped due to fatigue and dyspnea. Baseline electrocardiogram was sinus bradycardia with nonspecific ST-T wave changes. With exercise there were no clearcut electrocardiogram changes. Recovery phase was normal. There was no arrhythmia. CONCLUSIONS: Submaximal exercise treadmill stress test due to inability to achieve heart rate and dyspnea. Clinical correlation is suggested. Consider alternate imaging modality. FINAL REPORT Signed (Electronic Signature): 08/27/2023 1:39 pm Signed by: Haider Mcgee MD Transcribed by: anastacia Technologist: [facility] 08-27-2023 Note Echocardiology Procedure Exam Date/Time Accession # Ordering ECG Stress Exercise 08/15/2023 08:01 EST [id number] Haider Mcgee MD CPT code 43573 Reason for Exam (ECG Stress Exercise) I49.8;Other (please specify) Report PROCEDURE: Treadmill exercise stress test. INDICATIONS: Palpitations. PROCEDURE DETAILS: The patient was stressed according to the Piyush Protocol. Exercised for 4 minutes 28 seconds achieving heart rate of 118 beats per minute which is 74% maximal age predicted heart rate of 6.3 METS. The patient had test stopped due to fatigue and dyspnea. Baseline electrocardiogram was sinus bradycardia with nonspecific ST-T wave changes. With exercise there were no clearcut electrocardiogram changes. Recovery phase was normal. There was no arrhythmia. CONCLUSIONS: Submaximal exercise treadmill stress test due to inability to achieve heart rate and dyspnea. Clinical correlation is suggested. Consider alternate imaging modality. FINAL REPORT Signed (Electronic Signature): 08/27/2023 1:39 pm Signed by: Haider Mcgee MD Transcribed by: anastacia Technologist: [facility] 08-23-2023 Evaluation + Plan note Future Scheduled TestsNM Myocardial Spect Rest/Stress 1 Day 08/23/23 [facility] 08-18-2023 Note Echocardiology Procedure Exam Date/Time Accession # Ordering Echo Transthoracic 08/15/2023 07:59 EST [id number] Haider Mcgee MD CPT code 79280 [id number] Reason for Exam (Echo Transthoracic Complete) Palpitations, Cardiac arrhythmias I49.8;Other (please specify) Report Version: 1 Study ID: [id number] [facility] [address] [place] [address] Adult Echocardiogram Report Name: JANE CHIRINOS Study Date: 08/15/2023, 7: 07 AM Patient Location: [facility] : 1960 (MM/DD/YYYY) Gender: Female Age: 62 Years Height: 167.64 cm BP: 139 / 87 mmHg Weight: 102.06 kg HR: 59 bpm BSA: 2.10 m? Ordering Physician: Haider Mcgee Referring Physician: Haider Mcgee Performed By: Rosa Giron RDMS [place] Reason For Study: Palpitations History: Diabetes Interpretation Summary Ejection Fraction = 60-65%. Normal LV and RV. Sclerotic aortic valve. Normal estimated PA pressure. Impaired diastolic relaxation. Procedure A complete two-dimensional transthoracic echocardiogram was performed (2D, M-mode, spectral and color flow Doppler). Study quality is good. Left Ventricle The left ventricle is normal in size. mild left ventricular hypertrophy. Ejection Fraction = 60-65%. The left ventricular wall motion is normal. Grade I diastolic dysfunction, (abnormal relaxation pattern). Left Atrium The left atrial size is normal. Echocardiology Report Right Atrium Right atrial size is normal. Right Ventricle The right ventricular systolic function is normal. The right ventricle is normal size. The right ventricular wall motion is normal. Aortic Valve The aortic valve is trileaflet. No aortic regurgitation. There is aortic sclerosis without stenosis. Mitral Valve The mitral valve is normal in structure and function. There is no mitral regurgitation noted. No mitral valve stenosis. Tricuspid Valve Structurally normal tricuspid valve. No evidence of tricuspid regurgitation. Right ventricular systolic pressure is normal. Pulmonic Valve No evidence of stenosis. There is no pulmonic valve regurgitation. Arteries The aortic root is normal in size. Normal ascending aorta. Pulmonary artery diameter is normal. Venous The inferior vena cava is normal in size, and collapses normally with respiration. Effusion There is no pericardial effusion. Left Ventricle IVSd: 1.40 cm LVIDd: 3.6 cm LVPWd: 1.05 cm LVIDs: 2.41 cm EDV(MOD-sp4): 112.0 ml LVLd ap4: 8.7 cm ESV(MOD-sp4): 38.6 ml LVLs ap4: 7.7 cm EDV(MOD-sp2): 72.4 ml LVLd ap2: 7.5 cm ESV(MOD-sp2): 21.4 ml LVLs ap2: 6.2 cm Right Ventricle TAPSE: 2.17 cm Aortic Valve LVOT diam: 1.93 cm LV V1 mean P.0 mmHg LV V1 mean: 87.3 cm/sec LV V1 VTI: 32.9 cm Ao V2 VTI: 51.5 cm Ao mean P.0 mmHg Ao V2 mean: 145.0 cm/sec LV V1 max: 134.0 cm/sec LV V1 max P.2 mmHg Ao max P.8 mmHg Ao V2 max: 217.0 cm/sec Tricuspid Valve TR max P.7 mmHg TR max emerald: 248.5 cm/sec Aorta Ao root diam: 2.47 cm asc Aorta Diam: 3.5 cm Atria LA dimension: 3.7 cm Diastolic funtion Med Peak E' Emerald: 7.6 cm/sec Lat Peak E' Emerald: 9.1 cm/sec Echocardiology Report MV dec time: 0.28 sec MV E max emerald: 77.1 cm/sec MV A max emerald: 85.9 cm/sec Ao max P.8 mmHg Ao mean P.0 mmHg Ao root area: 4.8 cm? Ao root diam: 2.47 cm Ao V2 max: 217.0 cm/sec Ao V2 mean: 145.0 cm/sec Ao V2 VTI: 51.5 cm AV VR: 0.62 OSCAR(I,D): 1.87 cm? OSCAR(V,D): 1.81 cm? OSCAR(VTI)/BSA_phl: 0.86 EDV(MOD-sp4): 112.0 ml EDV(Teich): 54.1 ml EF(MOD-sp4): 65.5 % EF(Teich): 62.2 % ESV(MOD-sp4): 38.6 ml ESV(Teich): 20.4 ml FS: 32.8 % IVC Diam: 1.52 cm IVSd: 1.40 cm LA dimension: 3.7 cm LV V1 max: 134.0 cm/sec LV V1 max P.2 mmHg LV V1 mean: 87.3 cm/sec LV V1 mean P.0 mmHg LV V1 VTI: 32.9 cm LVIDd: 3.6 cm LVIDs: 2.41 cm LVLd ap4: 8.7 cm LVLs ap4: 7.7 cm LVOT area: 2.9 cm? LVOT diam: 1.93 cm LVPWd: 1.05 cm MV A max emerald: 85.9 cm/sec MV dec time: 0.28 sec MV E max emerald: 77.1 cm/sec MV E/A: 0.90 RAP systole: 3.0 mmHg RVDd: 2.7 cm RVIDd/LVIDd: 0.75 RVSP(TR): 27.7 mmHg SV(LVOT): 96.4 ml SV(MOD-sp4): 73.4 ml TAPSE: 2.17 cm TR max P.7 mmHg TR max emerald: 248.5 cm/sec asc Aorta Diam: 3.5 cm E/E' Lat: 8.4 E/E' Med: 10.1 EDV(MOD-sp2): 72.4 ml EF (MOD-bp): 66.9 % EF(MOD-sp2): 70.4 % ESV(MOD-sp2): 21.4 ml LA Vol Index: 29.5 ml/m? Echocardiology Report Lat Peak E' Emerald: 9.1 cm/sec LVLd ap2: 7.5 cm LVLs ap2: 6.2 cm Med Peak E' Emerald: 7.6 cm/sec Electronically signed by: Haider Mcgee MD 08/18/2023, 6: 05 AM FINAL REPORT Dictated: 08/15/2023 7:07 am Haider Mcgee MD Signed (Electronic Signature): 08/18/2023 6:05 am Signed by: Haider Mcgee MD Transcribed by: [facility] Technologist: MARIA ELENA [facility] 08-18-2023 Note Echocardiology Procedure Exam Date/Time Accession # [id number] Echo Transthoracic 08/15/2023 07:59 EST [id number] Haider Mcgee MD CPT code 56012 [id number] Reason for Exam (Echo Transthoracic Complete) Palpitations, Cardiac arrhythmias I49.8;Other (please specify) Report Version: 1 Study ID: [id number] [facility] [address] [place] [address] Adult Echocardiogram Report Name: JANE CHIRINOS Study Date: 08/15/2023, 7: 07 AM Patient Location: [facility] : 1960 (MM/DD/YYYY) Gender: Female Age: 62 Years Height: 167.64 cm BP: 139 / 87 mmHg Weight: 102.06 kg HR: 59 bpm BSA: 2.10 m? Ordering Physician: Haider Mcgee Referring Physician: Haider Mcgee Performed By: Rosa Giron RDMS, [place] Reason For Study: Palpitations History: Diabetes Interpretation Summary Ejection Fraction = 60-65%. Normal LV and RV. Sclerotic aortic valve. Normal estimated PA pressure. Impaired diastolic relaxation. Procedure A complete two-dimensional transthoracic echocardiogram was performed (2D, M-mode, spectral and color flow Doppler). Study quality is good. Left Ventricle The left ventricle is normal in size. mild left ventricular hypertrophy. Ejection Fraction = 60-65%. The left ventricular wall motion is normal. Grade I diastolic dysfunction, (abnormal relaxation pattern). Left Atrium The left atrial size is normal. Echocardiology Report Right Atrium Right atrial size is normal. Right Ventricle The right ventricular systolic function is normal. The right ventricle is normal size. The right ventricular wall motion is normal. Aortic Valve The aortic valve is trileaflet. No aortic regurgitation. There is aortic sclerosis without stenosis. Mitral Valve The mitral valve is normal in structure and function. There is no mitral regurgitation noted. No mitral valve stenosis. Tricuspid Valve Structurally normal tricuspid valve. No evidence of tricuspid regurgitation. Right ventricular systolic pressure is normal. Pulmonic Valve No evidence of stenosis. There is no pulmonic valve regurgitation. Arteries The aortic root is normal in size. Normal ascending aorta. Pulmonary artery diameter is normal. Venous The inferior vena cava is normal in size, and collapses normally with respiration. Effusion There is no pericardial effusion. Left Ventricle IVSd: 1.40 cm LVIDd: 3.6 cm LVPWd: 1.05 cm LVIDs: 2.41 cm EDV(MOD-sp4): 112.0 ml LVLd ap4: 8.7 cm ESV(MOD-sp4): 38.6 ml LVLs ap4: 7.7 cm EDV(MOD-sp2): 72.4 ml LVLd ap2: 7.5 cm ESV(MOD-sp2): 21.4 ml LVLs ap2: 6.2 cm Right Ventricle TAPSE: 2.17 cm Aortic Valve LVOT diam: 1.93 cm LV V1 mean P.0 mmHg LV V1 mean: 87.3 cm/sec LV V1 VTI: 32.9 cm Ao V2 VTI: 51.5 cm Ao mean P.0 mmHg Ao V2 mean: 145.0 cm/sec LV V1 max: 134.0 cm/sec LV V1 max P.2 mmHg Ao max P.8 mmHg Ao V2 max: 217.0 cm/sec Tricuspid Valve TR max P.7 mmHg TR max emerald: 248.5 cm/sec Aorta Ao root diam: 2.47 cm asc Aorta Diam: 3.5 cm Atria LA dimension: 3.7 cm Diastolic funtion Med Peak E' Emerald: 7.6 cm/sec Lat Peak E' Emerald: 9.1 cm/sec Echocardiology Report MV dec time: 0.28 sec MV E max emerald: 77.1 cm/sec MV A max emerald: 85.9 cm/sec Ao max P.8 mmHg Ao mean P.0 mmHg Ao root area: 4.8 cm? Ao root diam: 2.47 cm Ao V2 max: 217.0 cm/sec Ao V2 mean: 145.0 cm/sec Ao V2 VTI: 51.5 cm AV VR: 0.62 OSCAR(I,D): 1.87 cm? OSCAR(V,D): 1.81 cm? OSCAR(VTI)/BSA_phl: 0.86 EDV(MOD-sp4): 112.0 ml EDV(Teich): 54.1 ml EF(MOD-sp4): 65.5 % EF(Teich): 62.2 % ESV(MOD-sp4): 38.6 ml ESV(Teich): 20.4 ml FS: 32.8 % IVC Diam: 1.52 cm IVSd: 1.40 cm LA dimension: 3.7 cm LV V1 max: 134.0 cm/sec LV V1 max P.2 mmHg LV V1 mean: 87.3 cm/sec LV V1 mean P.0 mmHg LV V1 VTI: 32.9 cm LVIDd: 3.6 cm LVIDs: 2.41 cm LVLd ap4: 8.7 cm LVLs ap4: 7.7 cm LVOT area: 2.9 cm? LVOT diam: 1.93 cm LVPWd: 1.05 cm MV A max emerald: 85.9 cm/sec MV dec time: 0.28 sec MV E max emerald: 77.1 cm/sec MV E/A: 0.90 RAP systole: 3.0 mmHg RVDd: 2.7 cm RVIDd/LVIDd: 0.75 RVSP(TR): 27.7 mmHg SV(LVOT): 96.4 ml SV(MOD-sp4): 73.4 ml TAPSE: 2.17 cm TR max P.7 mmHg TR max emerald: 248.5 cm/sec asc Aorta Diam: 3.5 cm E/E' Lat: 8.4 E/E' Med: 10.1 EDV(MOD-sp2): 72.4 ml EF (MOD-bp): 66.9 % EF(MOD-sp2): 70.4 % ESV(MOD-sp2): 21.4 ml LA Vol Index: 29.5 ml/m? Echocardiology Report Lat Peak E' Emerald: 9.1 cm/sec LVLd ap2: 7.5 cm LVLs ap2: 6.2 cm Med Peak E' Emerald: 7.6 cm/sec Electronically signed by: Haider Mcgee MD 08/18/2023, 6: 05 AM FINAL REPORT Dictated: 08/15/2023 7:07 am Haider Mcgee MD Signed (Electronic Signature): 08/18/2023 6:05 am Signed by: Haider Mcgee MD Transcribed by: [facility] Technologist: [facility] 06-08-2023 Evaluation + Plan note Extrac wendy from: Title:ED Note Author:Serafin James DO Date:06/08/23 Arm pain (M79.603: Pain in a rm, unspecified) Chest pain (R07.9: Chest pain, unspecified) Ordered: acetaminophen-hydrocodone, 1 tab(s), Oral, q6hr for pain for 3 day(s), 10 tab(s), Refill(s) 0, [id number], 168, cm, 06/08/23 10:10:00 EST, Height/Length Dosing, 102.3, kg, 06/08/23 10:10:00 EST, Weight Dosing Orders: predniSONE, 50 mg = 1 tab(s), Oral, Daily, X 5 day(s), # 5 tab(s), Refills(s) 0, Pharmacy: [id number], 168, cm, 06/08/23 10:10:00 EST, Height/Length Dosing, 102.3, kg, 06/08/23 10:10:00 EST, Weight Dosing Automated Diff Basic Metabolic Panel CBC w/ Auto Diff CT Spine Cervical w/o Contrast CTA Chest ECG 12 Lead Adult ECG 12 Lead Adult ED Cardiac Monitoring eGFR Extra SST Tube Hepatic Function Panel Lipase Level Oxygen Saturation Oxygen Therapy PT & PTT Saline Lock Insert Troponin 0 Hr. Troponin 3 Hr. Troponin 6 Hr. Troponin 9 Hr. XR Chest 2 Views Future Appointments Appointment Date:07/22/2023 08:00:00 AM Scheduled Provider: Location:[facility] Appointment Type:CV Echo (FT) Appointment Date:07/22/2023 09:30:00 AM Scheduled Provider: Location:[facility] Appointment Type:CV Stress (FT) Appointment Date:08/02/2023 08:00:00 AM Scheduled Provider: Location[facility] Appointment Type:CV Loop Recorder Implanted (FT) Appointment Date:08/08/2023 10:00:00 AM Scheduled Provider:Haider Mcgee MD Location:[facility] [place] Appointment Type:Cardiology Follow Up (FT) Future Scheduled Tests Radiology* Echo Transthoracic Complete 07/22/23 * ECG Stress Exercise 07/22/23 [facility]12-02-2023 Hospital Discharge instructions Follow Up Care 06/08/2023 09:58:48 With:Haider Mcgee Address: [address] [place] [address] Business (1) When:06/11/2023 14:36:44 [facility]09-13-2023 NotePROCEDURE: 14-day event monitor REFERRING PHYSICIAN: Lori Wood CNP INDICATIONS: Arrhythmia. PROCEDURE DETAILS: The patient was recorded from 03/04/2023 to 03/11/2023. Predominant rhythm was sinus bradycardia or sinus rhythm. The minimum heart rate was 57 beats per minute, average heart rate74 beats per minute, maximum heart rate 92 beats per minute. There were no arrhythmias detected andthe strips were all sinus rhythm. There were no symptoms events. CONCLUSIONS: Benign event monitor. READ BY: Haider Mcgee M.D. Dictated: 03/19/2023 [id number] Transcribed: 03/19/2023 cc:Lori Wood CNPOhiohealth Grove City Methodist HospitalComment on above:Result Comment: Electronically Signed By: Haider Mcgee MD\.br\Date and Time Signed: 03/20/23 12:28 [id number] Evaluation + Plan note Future Appointments Appointment Date:08/15/2023 07:00:00 AM Scheduled Provider: Location[facility] Appointment Type:CV Echo (FT) Appointment Date:08/15/2023 08:00:00 AM Scheduled [facility] Stress (FT) Appointment Date:08/23/2023 10:45:00 AM Scheduled Provider:Haider Mcgee MD Location:[facility] Appointment Type:Cardiology Follow Up (FT) Future Scheduled Tests Radiology* Echo Transthoracic Complete 08/15/23 * ECG Stress Exercise 08/15/23 [facility] No data available for this section [facility] + Plan note Future Appointments Appointment Date:06/20/2023 02:00:00 PM Scheduled Provider:Haider Mcgee MD Location:[facility] Appointment Type:Cardiology Follow Up (FT) Future Scheduled Tests Radiology* Echo Transthoracic Complete 05/09/23 * ECG Stress Exercise 05/09/23 [facility] Future Appointments Appointment Date:08/23/2023 10:45:00 AM Scheduled Provider:Haider Mcgee MD Location:[facility] Appointment Type:Cardiology Follow Up (FT) [facility] Future Appointments Appointment Date:12/20/2023 07:30:00 AM Scheduled [facility]: [facility] Type:MA Screen (FT) Future Scheduled Tests Radiology* MA Mamm Screen w/CAD if perf and 3D Sabino 12[facility]20[facility]23 [facility] Diagnosis Arthralgia, unspecified joint [facility] Diagnosis Urgency of urination- Primary Dysuria Type 2 diabetes mellitus without complication, without long-term current use of insulin ([facility]) History of UTI Urinary tract infection without hematuria, site unspecified Vaginal dryness Postmenopausal atrophic vaginitis Recurrent major depressive disorder, in partial remission (HCC) ([facility]) [facility]* Diagnosis Wellness examination- Primary Leukocytes in urine Other nonspecific finding on examination of urine Urinary tract infection without hematuria, site unspecified Right flank pain Abdominal pain, unspecified site Screening for lipid disorders Screening for heart disease Screening for other and unspecified cardiovascular conditions Encounter for screening for diabetes mellitus Night sweats Generalized hyperhidrosis Screening for thyroid disorder Screening for deficiency anemia Screening for other and unspecified deficiency anemia [facility]* Diagnosis Urinary tract infection with hematuria, site unspecified- Primary Statin declined Hyperlipidemia, unspecified hyperlipidemia type ([facility]) Hypercholesterolemia ([facility]) Pure hypercholesterolemia documented [facility]* Diagnosis Bipolar affective disorder, currently depressed, moderate ([facility])- Primary Bipolar I disorder, most recent episode (or current) depressed, moderate Frequent urination Urinary frequency Itching Unspecified pruritic disorder Vaginal discharge Leukorrhea, not specified as infective Type 2 diabetes mellitus without complication, without long-term current use of insulin ([facility]) Gastroesophageal reflux disease without esophagitis Esophageal reflux Anxiety Anxiety state, unspecified Recurrent major depressive disorder, in partial remission (HCC) ([facility]) documented in this encounter [facility]* Diagnosis Gastroesophageal reflux disease without esophagitis Esophageal reflux documented in this encounter [facility]* Diagnosis Anxiety- Primary Anxiety state, unspecified Dysuria History of UTI Recurrent major depressive disorder, in partial remission (HCC) ([facility]) documented in this encounter [facility] Dis[facility] instructions No data available for this section [facility] No data available for this section [facility] Summary Purpose Family History No Family History Records FoundNo Family History Records Found No data available for this section No data available for this section No data available for this section No data available for this section No data available for this section No Family History Records Found No data available for this section No data available for this section No data available for this section No Family History Records FoundNo Family History Records FoundNo Family History Records Found Advance Directives No Advanced Directives Records FoundNo Advanced Directives Records FoundNo Advanced Directives Records FoundNo Advanced Directives Records FoundNo Advanced Directives Records FoundNo Advanced Directives Records Found Additional Source Comments INFORMATION SOURCE (unrecogn ized section and content) DATE CREATED AUTHOR 09/27/2021 [facility] dical Specialist DATE CREATED AUTHOR AUTHOR'S ORGANIZ ATION 04/08/2022 [facility] DATE CREATED AUTHOR AUTHOR'S ORGANIZ ATION 09/22/2023 [facility] DATE CREATED AUTHOR AUTHOR'S ORGANIZ ATION 04/28/2024 [facility] DATE CREATED AUTHOR AUTHOR'S ORGANIZ ATION 05/03/2024 [facility] DATE CREATED AUTHOR AUTHOR'S ORGANIZ ATION 05/22/2024 [facility] dical Specialists EPIC Patient Care team informatio n (unrecognized section and content) 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 Relationship Specialty Start Date End Date Farideh Shi MD [address] [place] [address] PCP - General Family Medicine 12/25/23 Lori Wood, PORCELAIN TECHNICIAN [address] [place] [address] Nurse Practitioner Family Medicine 01/31/23 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 Relationship Specialty Start Date End Date Farideh Shi MD [address] [place] [address] PCP - General Family Medicine 12/25/23 Lori Wood NP [address] [place] [address] Nurse Practitioner Family Medicine 01/31/23 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 Relationship Specialty Start Date End Date Farideh Shi MD [address] [place] [address] PCP - General Family Medicine 12/25/23 Lori Wood NP [address] [place] [address] Nurse Practitioner Family Medicine 01/31/23 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 Relationship Specialty Start Date End Date Farideh Shi MD [address] [place] [address] PCP - General Family Medicine 12/25/23 Lori Wood PORCELAIN TECHNICIAN [address] [place] [address] Nurse Practitioner Family Medicine 01/31/23 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 Relationship Specialty Start Date End Date Farideh Shi MD [address] [place] [address] PCP - General [facility] Medicine 12/25/23 Lori Wood NP [address] [place] [address] Nurse Practitioner Family Medicine 01/31/23 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 Relationship Specialty Start Date End Date Farideh Shi MD [address] [place] [address] PCP - General [facility] Medicine 12/25/23 Lori Wood NP [address] [place] [address] Nurse Practitioner Family Medicine 01/31/23 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 Relationship Specialty Start Date End Date Farideh Shi MD [address] [place] [address] PCP - General [facility] Medicine 12/25/23 Lori Wood NP [address] [place] [address] Nurse Practitioner Family Medicine 01/31/23 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 Relationship Specialty Start Date End Date Farideh Shi MD [address] [place] [address] PCP - General Family Medicine 12/25/23 Lori Wood NP [address] [place] [address] Nurse Practitioner Family Medicine 01/31/23 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 Relationship Specialty Start Date End Date Farideh Shi MD [address] [place] [address] PCP - General [facility] 12/25/23 Lori Wood NP [address] [place] [address] Nurse Practitioner [facility] 01/31/23 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 Relationship Specialty Start Date End Date Farideh Shi MD [address] [place] [address] PCP - General [facility] 12/25/23 Lori Wood NP [address] [place] [address] Nurse Practitioner [facility] 01/31/23 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 Relationship Specialty Start Date End Date Farideh Shi MD [address] [place] [address] PCP - General [facility] 12/25/23 Lori Wood NP [address] [place] [address] Nurse Practitioner [facility] 01/31/23 Reason for Visit (unrecogniz ed section and content) Reason Comments Med Refill Reason Comments UTI Diabetes Patient in need of D M check Reason Comments Annual Exam Annual exam with for m for completion UTI Recheck for UTI Immunizations Patient declines at this time. Reason Onset Date Comments Results 05/06/2024 Reason Comments Follow-up Reason Comments Immunizations Declines at this giulia e Follow-up UTI Reason Comments Follow-up Patient here today f or UTI follow up. FOR RECORDS PERTAINING TO PATIENTS WHO ARE OR HAVE BEEN ENROLLED IN A CHEMICAL DEPENDENCY/SUBSTANCEABUSE PROGRAM, SOME INFORMATION MAY BE OMITTED. This clinical summary was aggregated from multiple sources. Caution should be exercised in using it in the provision of clinical care. This summary normalizes information from multiple sources, and as a consequence, information in this document may materially change the coding, format and clinical context of patient data. In addition, data may be omitted in some cases. CLINICAL DECISIONS SHOULD BE BASED ON THE PRIMARY CLINICAL RECORDS. [facility]. provides no warranty or guarantee of the accuracy or completeness of information in this document.
--- NOTE | 2024-06-30 11:09 | ECG_ITS ---
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
--- NOTE | 2024-06-30 11:12 | XR_ITS ---
[address] [address] Patient Name: KENNETH HEAD MRN: [id number] date: 1960 Sex: F Assigned Patient Location: ER Current Patient Location: ER Accession/Order Number: [id number] Exam Date: 06/30/2024 11:26 Report Date: 06/30/2024 12:59 At the request of: NOBLE NIEVES Procedure: XR chest 1V EXAM: XR chest 1V HISTORY: chest pain COMPARISON: None. TECHNIQUE: AP chest x-ray. FINDINGS: Cardiac size appears within normal limits. Trachea is midline. No mediastinal widening. Lungs appear clear. No pneumothorax or effusion identified. Surgical clips along the bilateral chest. XR/XR chest 1V IMPRESSION: No acute cardiopulmonary process identified. Electronically authenticated by: ELISSA HAYES Date: 06/30/2024 12:59
[2024-06-30 11:31] LABS: Basophils Absolute Auto 0.1 10^3/uL (0.0-0.1); Basophils Percent Auto 0.3 % (0.2-2.0); Eosinophils Percent Auto 0.1 % (0.9-7.0); Hemoglobin 13.6 g/dL (12.0-16.0); Immature Granulocytes Abs Auto 0.05 10^3/uL (0.00-0.03); Immature Granulocytes Pct Auto 0.3 % (0.0-0.5); Lymphocytes Absolute Auto 0.2 10^3/uL (1.2-3.8); Lymphocytes Percent Auto 1.3 % (20.5-60.0); Mean Corpuscular HGB Conc 33.2 g/dL (29.9-35.2); Mean Corpuscular Hemoglobin 27.5 pg (26.7-34.0); Mean Platelet Volume 9.5 fL (9.5-13.5); Monocytes Absolute Auto 0.5 10^3/uL (0.3-0.8); Platelet Count 328 10^3/uL (150-450); Red Blood Count 4.94 10^6/uL (4.20-5.40); Red Cell Distribution Width 13.2 % (11.0-15.0); White Blood Count 17.9 10^3/uL (4.0-11.0)
[2024-06-30] MEDS: ONDANSETRON PF 4 MG/2 ML VIAL IV (11:38)
[2024-06-30] MEDS: 0.9 % SODIUM CHLORIDE 1,000 ML 999 ML IV (11:38)
[2024-06-30 11:41] LABS: Alanine Aminotransferase 26 U/L (14-59); Albumin Globulin Ratio 0.9; Albumin Level 3.4 g/dL (3.4-5.0); Alkaline Phosphatase 71 U/L (46-116); Anion Gap 15.7; Aspartate Amino Transferase 16 U/L (15-37); BUN Creatinine Ratio 23.3; Bilirubin Total 0.6 mg/dL (0.2-1.0); Carbon Dioxide 26.1 mmol/L (21.0-32.0); Chloride 104 mmol/L (98-107); Estimated GFR (African America 57 (>=60 mL/min/1.73m^2); Estimated GFR (Non-African Ame 47 (>=60 mL/min/1.73m^2); Globulin 3.6 g/dL; Glucose 162 mg/dL (74-106); Potassium 3.8 mmol/L (3.5-5.1); Sodium 142 mmol/L (136-145)
[2024-06-30 11:46] LABS: Troponin I High Sensitivity 67.3 pg/mL (4.0-51.3)
[2024-06-30 11:46] LABS: Influenza Virus A Antigen Negative; Influenza Virus B Antigen Negative; Internal Control Within Normal Limits; SARS-CoV-2 Ag NEGATIVE (NEGATIVE)
[2024-06-30 13:56] LABS: Troponin I High Sensitivity 79.2 pg/mL (4.0-51.3)
--- NOTE | 2024-06-30 14:03 | ED_ITS ---
HPI HPI - General Adult General Chief complaint: Chest Pain Stated complaint: VOMMITING DIARRHEA Time Seen by Provider: 06/30/24 11:23 Source: patient History of Present Illness HPI narrative: This patient is here for evaluation of abrupt onset nausea vomiting and diarrhea at approximately level 1:30 AM last night. She says she has had copious watery diarrhea approximately 15 times an ongoing nausea with the episodes. Several hours after the symptoms started then she developed some chest discomfort that she says feels like heaviness and pressure that goes into her back. She did not have any syncopal episodes or palpitations. She has not seen a blood in the stool or the vomitus. No other family members are ill that she is aware of. She has not had any travel history. She has not been on any antibiotics. She states that she underwent cardiac echo and stress testing this summer by a physician in [facility] and the tests were normal. She never had a heart catheterization. This discomfort in her chest does not radiate to the neck jaw or arm. She does not have a sore throat earache or headache. Related Data Home Medications ?Medication ?Instructions ?Recorded ?Confirmed fluoxetine 10 mg capsule 10 mg PO DAILY 06/30/24 06/30/24 lamotrigine 25 mg tablet 25 mg PO DAILY 06/30/24 06/30/24 metformin 1,000 mg tablet 1,000 mg PO DAILY 06/30/24 06/30/24 Allergies Allergy/AdvReac Type Severity Reaction Status Date / Time No Known Drug Allergies Allergy Verified 06/30/24 11:07 Opioid HPI Opioid Management Most Recent Opioid Data: Last Pain Scale 5 06/30/24 14:17 06/30/24 PFSH PFSH Medical History (Updated 06/30/24 @ 14:51 by Dwain Garcia MD) Thoracic outlet syndrome ?G54.0 - Brachial plexus disorders (ICD-10) Anxiety and depression ?F41.9 - Anxiety disorder, unspecified (ICD-10) ?F32.A - Depression, unspecified (ICD-10) Pre-diabetes ?R73.03 - Prediabetes (ICD-10) Surgical History (Updated 06/30/24 @ 14:12 by Viki Holder) Hx laparoscopic cholecystectomy ?Z90.49 - Acquired absence of other specified parts of digestive tract (ICD- 10) H/O foot surgery ?Z98.890 - Other specified postprocedural states (ICD-10) Social History Little interest or pleasure in doing things: not at all Feeling down, depressed, or hopeless: not at all Exam Narrative Exam Narrative: Awake alert good historian not anxious. She has not taken any antiemetic or antidiarrhea medication. Her heart rate up slightly on arrival here sinus rhythm approximately 90. A twelve-lead EKG was done on arrival here shows normal sinus rhythm with no ST segment elevation arrhythmia or other gross abnormality. Her skin is warm and dry she is not clammy or diaphoretic. Her neck is soft and supple. Examination her lungs showed her lungs to be clear with no wheeze rales or rhonchi. I do not appreciate a S3-S4 gallop or irregularity on auscultation of her heart. Chest wall is nontender. There is no jugular vein distention. Abdomen is benign with no guarding rebound rigidity or peritoneal findings. Her extremities have no evidence of cellulitis edema swelling or tenderness. Neurological examination cognition is normal. She has no neurological symptomatology. Constitutional Vital Signs, click to edit/add: Last Vital Signs Temp 98.6 F 06/30/24 11:02 Pulse 85 06/30/24 13:30 Resp 20 06/30/24 13:30 BP 111/75 06/30/24 13:30 Pulse Ox 100 06/30/24 13:30 O2 Del Method Room Air 06/30/24 11:43 Course Vital Signs Vital signs: Vital Signs Temperature 98.6 F 06/30/24 11:02 Pulse Rate 90 06/30/24 11:02 Respiratory Rate 24 H 06/30/24 11:02 Blood Pressure 126/80 06/30/24 11:02 Pulse Oximetry 100 06/30/24 11:02 Oxygen Delivery Method Room Air 06/30/24 11:02 Temperature 98.6 F 06/30/24 11:02 Pulse Rate 85 06/30/24 13:30 Respiratory Rate 20 06/30/24 13:30 Blood Pressure 111/75 06/30/24 13:30 Pulse Oximetry 100 06/30/24 13:30 Oxygen Delivery Method Room Air 06/30/24 11:43 Medical Decision Making MDM Narrative Medical decision making narrative: This patient's initial symptoms and evaluation was suggest gastroenteritis. However we also want to evaluate the chest discomfort. In fact her initial twelve-lead EKG was normal and she did not have any arrhythmia on her monitor. However her initial cardiac troponin is elevated at 67. A repeat troponin was done 2 hours after the first and it was elevated to 79. Since we have no cardiology coverage at this institution I will call and arrange evaluation in [place] at the heart center there. She had been given some fluids. We will give her baby aspirin and await recommendations for heparin. We contacted the hospitalist for transfer and he would like us to speak to the after school tutor first. The after school tutor return our call at 2:40 PM. Case was discussed in detail. He would like to make sure that the diarrhea does not have any blood before initiating heparin. If it does she said that heparin would be fine he suggests cautious and low dose of nitroglycerin since she has had substantial fluid volume loss. She has not been hypotensive or hypertensive while here. I did a stool rectal examination and secretions are clear with no evidence of blood. Hemoccult testing will be done. Lab Data Labs: Lab Results 06/30/24 06/30/24 06/30/24 Range/Units 11:10 11:12 13:27 WBC 17.9 H (4.0-11.0) 10^3/uL RBC 4.94 (4.20-5.40) 10^6/uL Hgb 13.6 (12.0-16.0) g/dL Hct 41.0 (36.0-48.0) % MCV 83.0 (81.0-99.0) fL MCH 27.5 (26.7-34.0) pg MCHC 33.2 (29.9-35.2) g/dL RDW 13.2 (11.0-15.0) % Plt Count 328 (150-450) 10^3/uL MPV 9.5 (9.5-13.5) fL Neut % (Auto) 95.0 H (43.0-75.0) % Lymph % (Auto) 1.3 L (20.5-60.0) % [place] % (Auto) 3.0 (1.7-12.0) % Eos % (Auto) 0.1 L (0.9-7.0) % Baso % (Auto) 0.3 (0.2-2.0) % Neut # (Auto) 17.0 H (1.4-6.5) 10^3/uL Lymph # (Auto) 0.2 L (1.2-3.8) 10^3/uL [place] # (Auto) 0.5 (0.3-0.8) 10^3/uL Eos # (Auto) 0.0 (0.0-0.7) 10^3/uL Baso # (Auto) 0.1 (0.0-0.1) 10^3/uL Abs Immat Gran (auto) 0.05 H (0.00-0.03) 10^3/uL Imm/Tot Granulo (auto) 0.3 (0.0-0.5) % Sodium 142 (136-145) mmol/L Potassium 3.8 (3.5-5.1) mmol/L Chloride 104 (98-107) mmol/L Carbon Dioxide 26.1 (21.0-32.0) mmol/L Anion Gap 15.7 BUN 27.0 H (7.0-18.0) mg/dL Creatinine 1.16 H (0.55-1.02) mg/dL Est GFR ( Amer) 57 L (>=60 mL/min/1.73m^2) Est GFR (Non-Af Amer) 47 L (>=60 mL/min/1.73m^2) BUN/Creatinine Ratio 23.3 Glucose 162 H (74-106) mg/dL Calcium 9.0 (8.5-10.1) mg/dL Total Bilirubin 0.6 (0.2-1.0) mg/dL AST 16 (15-37) U/L ALT 26 (14-59) U/L Alkaline Phosphatase 71 (46-116) U/L Troponin I High Sens 67.3 H* 79.2 H* (4.0-51.3) pg/mL Total Protein 7.0 (6.4-8.2) g/dL Albumin 3.4 (3.4-5.0) g/dL Globulin 3.6 g/dL Albumin/Globulin Ratio 0.9 Influenza Type A Ag Negative Influenza Type B Ag Negative SARS-CoV-2 Ag (CV2AG) Negative (NEGATIVE) Discharge Plan Discharge Chief Complaint: Chest Pain Clinical Impression: Gastroenteritis, Acute non-ST elevation myocardial infarction (NSTEMI) Patient Disposition: Xfer Acute Care Hospital Time of Disposition Decision: 14:51 Condition: Fair Mode of Transportation: EMS Prescriptions / Home Meds: No Action metformin 1,000 mg tablet 1,000 mg PO DAILY fluoxetine 10 mg capsule 10 mg PO DAILY lamotrigine 25 mg tablet 25 mg PO DAILY Print Language: Maltese Referrals: Physician,Non-Staff, MD [Primary Care Provider] - 1 week
[2024-06-30] MEDS: ASPIRIN 81 MG TAB.CHEW 162 MG PO (14:15)
[2024-06-30] MEDS: NITROGLYCERIN IN 5 % DEXTROSE 50 MG/250 ML INFUS..BTL IV (14:36)
[2024-06-30 14:57] LABS: Internal Control Within Normal Limits; Occult Blood Negative
[2024-06-30] MEDS: 0.9 % SODIUM CHLORIDE 1,000 ML 250 ML IV (15:10)
[2024-06-30] MEDS: HEPARIN SODIUM,PORCINE/D5W 25,000 UNIT/500 ML IV.SOLN 20 UNIT IV (15:16)
[2024-06-30 15:28] LABS: INR 0.97; Prothrombin Time 10.3 sec (9.0-11.6)
[2024-06-30] MEDS: ACETAMINOPHEN 500 MG TABLET 1000 MG PO (16:25)
--- NOTE | 2024-06-30 16:53 | ECG_ITS ---
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
[2024-06-30 17:54] LABS: Troponin I High Sensitivity 73.5 pg/mL (4.0-51.3)
== END 2024-06-30 19:48 | disposition short-term general hospital (02) ==
PROVIDERS: Emergency Provider Emergency Medicine Emergency Medical Services
DX: I21.4 Non-ST elevation (NSTEMI) myocardial infarction (principal); K52.9 Noninfective gastroenteritis and colitis, unspecified; Z90.49 Acquired absence of other specified parts of digestive tract
CPT/HCPCS: 36415; 71045; 80053; 84484; 85025; 85610; 87804; 87811; 93005; 96361; 96365; 96366; 96368; 96375; 99285; G0328; J1644; J2305; J2405